=== PATIENT | female | born 1950 | race Caucasian/White ===

== ENCOUNTER 2016-11-08 20:17 | Inpatient (IN) | payer MEDICARE, MEDICAID ==
[~2016-11-08] VITALS: Ht 157.5 cm; Wt 95.4 kg
[2016-11-08] MEDS ORDERED: ESCI20TA PO (20:39)
[2016-11-08] MEDS ORDERED: ADV250INH INH (20:39)
[2016-11-08] MEDS ORDERED: COMBAER6 INH (20:39)
[2016-11-08] MEDS ORDERED: GABA-282 PO (20:47)
[2016-11-08] MEDS ORDERED: LEVO100T5 PO (20:47)
[2016-11-08] MEDS ORDERED: OXYC1TAB16 PO (20:47)
[2016-11-08] MEDS ORDERED: MONT10TA2 PO (20:47)
[2016-11-08] MEDS ORDERED: MUPI2OI TOP (20:47)
[2016-11-08] MEDS ORDERED: FURO20TA2 PO (20:47)
[2016-11-08] MEDS ORDERED: ZOFR4TAB3 PO (20:47)
[2016-11-08] MEDS ORDERED: ISOS30TA4 PO (20:47)
[2016-11-08] MEDS ORDERED: OMEP40CA2 PO (20:47)
[2016-11-08] MEDS ORDERED: CLAR10CA3 PO (20:47)
[2016-11-08] MEDS ORDERED: RANI15TA PO (20:47)
[2016-11-08] MEDS: NYSTATIN 100,000 UNITS/GM TOPICAL PWD 15 GM TOP SCH (21:00)
[2016-11-08] MEDS ORDERED: LORA10CA PO (21:42)
[2016-11-08] MEDS ORDERED: LORA10TA2 PO (21:43)
[2016-11-08] MEDS ORDERED: CLOB05OI TOP (21:46)
[2016-11-08] MEDS ORDERED: SPIR25TA2 PO (21:46)
[2016-11-08] MEDS ORDERED: VITMTA PO (21:46)
[2016-11-08] MEDS ORDERED: NYST10PW TOP (21:46)
[2016-11-08] MEDS ORDERED: POTA10CA PO (21:46)
[2016-11-08] MEDS ORDERED: ONDA4TAB5 PO (21:47)
[2016-11-09] VITALS (7 sets, daily range): BP systolic 101–107; BP diastolic 53–65
[2016-11-09] MEDS: GABAPENTIN 300 MG CAP PO SCH ×4 (01:18→21:30)
--- NOTE | 2016-11-09 04:24 | HPEPDOC ---
General Date of Admission Nov 08, 2016 at 23:47 Primary Care Physician: Angelo Butterfield Attending Physician: YOAN CANDELARIA MD Chief Complaint The patient is a 66-year-old female admitted with a reason for visit of Acute Renal Failure, Elevated Troponin. Source: Patient Exam Limitations: No limitations Timing/Duration: Day(s) (2) Severity: Moderate Associated Symptoms: Malaise, Weakness History of Present Illness 66-year-old female, history of hypertension, bilateral venous ulcers. Iron deficiency anemia presented with generalized weakness. She had some blood in the urine few days back and went to her PCP Dr. Durham for the workup and was found to have creatinine of 2.9 and UTI. Placenta was transferred to [facility] for nephrology consult and renal workup. Patient denied any fever, dysuria, history of renal stone Home Medications Scheduled Clobetasol Propionate (Clobetasol Propionate) 0.05 % Oin, 1 DOSE TOP DAILY, ( Reported) APPLY TO LEFT CALF Escitalopram Oxalate (Escitalopram Oxalate) 20 Mg Tab, 20 MG PO DAILY, (Reported ) Furosemide (Furosemide) 20 Mg Tab, 20 MG PO BID, (Reported) Gabapentin (Gabapentin) 300 Mg Cap, 300 MG PO QID, (Reported) Isosorbide Mononitrate (Isosorbide Mononitrate ER) 30 Mg Tab, 30 MG PO DAILY, ( Reported) Levothyroxine Sodium (Synthroid) 100 Mcg Tab, 100 MCG PO DAILY, (Reported) Loratadine (Loratadine) 10 Mg Tab, 10 MG PO DAILY, (Reported) Montelukast Sodium (Montelukast Sodium) 10 Mg Tab, 10 MG PO DAILY, (Reported) Multivitamins *[facility]* (Thera M Plus *[facility]*) 1 Tab Tab, 1 TAB PO DAILY, (Reported) Mupirocin (Mupirocin) 2 % Oin, 1 DOSE TOP DAILY, (Reported) APPLY TO LEFT CALF Nystatin (Nystop Powder) 1 Dose/15 Gm Powd, 1 DOSE TOP TID, (Reported) Omeprazole (Omeprazole) 40 Mg Cap, 40 MG PO DAILY, (Reported) Potassium Chloride (Klor-Con M10) 10 Meq Tabcr, 10 MEQ PO DAILY, (Reported) Salmeterol/Fluticasone (Advair Diskus 250-50 Mcg/Dose) 14 Puff/Inhaler Aerp, 1 PUFF INH BID, (Reported) Spironolactone (Spironolactone) 25 Mg Tab, 25 MG PO DAILY, (Reported) Scheduled PRN (Oxycodone/Acetaminophen 10-325 mg) 1 Tab Tab, 1 TAB PO Q6HP PRN for PAIN SCALE 6-10, (Reported) Ondansetron HCl (Ondansetron HCl) 4 Mg Tab, 4 MG PO BID PRN for NAUSEA, ( Reported) Allergies Coded Allergies: Contrast Media (Verified Allergy, Unknown, 11/08/16) Penicillins (Verified Allergy, Unknown, 11/08/16) Penicillins Cross Reactors (Verified Allergy, Unknown, 11/08/16) Past Medical History Medical History Hypertensive depressant. Hyperlipidemia Surgical History Development of venous ulcers on both legs Family History Significant Family History: No pertinent family hx Social History * Smoker: Denies Alcohol: Denies Drugs: denies Recent Travel/Sick Contacts: Denies: Recent travel, Recent sick contacts Psychosocial History: Depression Review of Symptoms Constitutional: Reports: Malaise, Weakness, Denies: Chills, Fever, Night Sweats Eyes: Denies: Pain, Vision change ENT: Denies: Head Aches, Ear Pain, Dysphagia Skin: Reports: Rash, Lesions, Breakdown Pulmonary: Denies: Dyspnea, Cough Cardiovascular: Denies: Chest Pain, Palpitations, Orthopnea, Paroxysmal Noc. Dyspnea, Lt Headedness Gastrointestinal: Reports: Abdominal Pain, Denies: Nausea, Vomiting, Diarrhea Genitourinary: Reports: Hematuria, Denies: Dysuria, Frequency, Incontinence, Retention Hematologic: Denies: Bruising, Bleeding Excessively Musculoskeletal: Denies: Neck Pain, Back Pain, Joint Pain, Muscle Pain, Spasms Neurological: Denies: Weakness, Numbness, Change in speech, Confusion Psych: Reports: Mood Normal, Denies: Depression, Memory Issues Physical Examination General Exam: Positive: Alert, No Acute Distress Eye Exam: Positive: PERRLA, Conjunctiva & lids normal, EOMI, Negative: Sclera icteric ENT Exam: Positive: Atraumatic, Mucous membr. moist/pink, Pharynx Normal Neck Exam: Positive: Supple, Negative: JVD, thyromegaly Chest Exam: Positive: Clear to auscultation, Normal air movement Heart Exam: Positive: Rate Normal, Regular Rhythm, Normal S1, Normal S2, Negative: Murmurs, Rubs Telemetry: Positive: No significant arrhythmia Abdomen Exam: Positive: Normal bowel sounds, Soft, Tenderness, Negative: Hepatospenomegaly Extremity Exam: Positive: Normal pulses, Tenderness, Swelling, Other (venous ulcers on both lower extremities), Negative: Clubbing, Cyanosis Skin Exam: Positive: Breakdown, Lesion Neuro Exam: Positive: Normal Speech, Cranial Nerves 3-12 NL, Reflexes 2+ Psych Exam: Positive: Mental status NL, Mood NL, Oriented x 3 Vital Signs Vital Signs Date Time Temp Pulse Resp B/P (MAP) Pulse Ox O2 Delivery O2 Flow Rate FiO2 11/09/16 01:03 98.4 76 18 101/53 (69) 92 Room Air Assessment/Plan 66-year-old female, history of iron deficiency anemia, hypertensive presented with urinary tract infection and acute kidney injury Problems (1) Acute renal failure Status: Acute Problem Text: Creatinine 2.9. Follow-up creatinine. DC Lasix Get renal ultrasound may get nephrology consult in the morning. By the day team if her creatinine does not improve remarkably. Get Bartholomew catheter. Check input and output. Check urine culture (2) Elevated troponin Status: Acute Problem Text: Troponin mildly elevated likely due to the high creatinine day. No chest pain, shortness of breath or palpitations, and ischemia highly unlikely . Check troponin and professional nursing assistant (3) UTI (urinary tract infection) Problem Text: Leukocytosis in urine and started IV Cipro Plan / VTE VTE Prophylaxis Ordered?: Yes Plan / Urinary Catheter Urinary Catheter: Place Bartholomew Reason for insertion/continuin: Acute obstruct/retention Plan Diet: Continue Current Activity: Continue Current Diagnostics: Repeat Labs in AM Anticipated Discharge: Home LAMBERTO HALEY MD Nov 09, 2016 04:24
[2016-11-09] MEDS: LEVOTHYROXINE 100MCG TABLET (0.1MG) PO SCH (05:39)
[2016-11-09] MEDS ORDERED: CIPROFLOXACIN 500 MG TAB PO SCH (06:00)
[2016-11-09] MEDS ORDERED: HEPARIN DRIP 25,000 UNITS in APPROPRIATE DILUENT 1 EA IV SCH (06:43)
[2016-11-09] MEDS ORDERED: CLOPIDOGREL 75 MG TAB PO STA (06:45)
[2016-11-09] MEDS ORDERED: ASPIRIN 325 MG TAB PO ONE (06:45)
[2016-11-09] MEDS ORDERED: HEPARIN SOD (PORCINE) 5000 UNITS/ML VIAL IV PRN (06:45)
[2016-11-09 07:25] LABS: ALBUMIN 2.3 GM/DL (3.2-5.2); ALBUMIN/GLOBULIN RATIO 0.49 (1.00-1.93); BILIRUBIN,TOTAL 0.6 MG/DL (0.2-1.0); CALCIUM LEVEL 8.5 MG/DL (8.8-10.2); CREATININE FOR GFR 2.6 MG/DL (0.55-1.02); GLOMERULAR FILTRATION RATE 19.5 (>45); POTASSIUM SERUM 4.3 MEQ/L (3.5-5.1)
[2016-11-09] MEDS: ADVAIR DISKUS 250/50 INH PWD INH SCH ×2 (07:39→20:10)
[2016-11-09 07:56] LABS: MAGNESIUM LEVEL 1.9 MG/DL (1.8-2.4)
[2016-11-09 08:08] LABS: ADD MANUAL DIFFER YES; MEAN CORPUSCULAR HEMOGLOBIN 32.5 pg (27.0-33.0); MEAN CORPUSCULAR HGB CONC 31.5 g/dl (32.0-36.5); MEAN CORPUSCULAR VOLUME 103.4 fl (80.0-96.0); PLATELET COUNT, AUTOMATED 164 k/mm3 (150-450); RED CELL DISTRIBUTION WIDTH 17.3 % (11.5-14.5); WHITE BLOOD COUNT 4.9 K/mm3 (4.0-10.0)
[2016-11-09] MEDS ORDERED: NS 1,000 ML IV SCH (08:30)
[2016-11-09] MEDS: ISOSORBIDE MON. (IMDUR) 30 MG XR TAB PO SCH (08:59)
[2016-11-09] MEDS: MONTELUKAST 10 MG TAB PO SCH (08:59)
[2016-11-09] MEDS ORDERED: MULTIVITAMINS/MINERALS THERAP 1 TAB PO SCH (09:00)
[2016-11-09] MEDS: ESCITALOPRAM OXALATE 10 MG TAB (LEXAPRO) PO SCH (09:00)
[2016-11-09] MEDS: OMEPRAZOLE 20 MG CAP PO SCH (09:00)
[2016-11-09] MEDS ORDERED: SPIRONOLACTONE 25 MG TAB PO SCH (09:00)
[2016-11-09] MEDS ORDERED: NITROFURANTOIN (MACROBID) 100 MG CAP PO SCH (09:00)
[2016-11-09] MEDS: NYSTATIN 100,000 UNITS/GM TOPICAL PWD 15 GM TOP SCH ×3 (09:01→21:31)
[2016-11-09] MEDS: CLOBETASOL PROP 0.05% OINT 30 GM TOP SCH (09:01)
[2016-11-09] MEDS: MUPIROCIN 2% OINT 22 GM TUBE TOP SCH (09:01)
[2016-11-09 09:11] LABS: ANISOCYTOSIS 1+; EOSINOPHILS 7 % (0-5); HYPOCHROMASIA 1+
[2016-11-09 10:56] LABS: OSMOLALITY URINE 374 MOSM/KG (500-800)
--- NOTE | 2016-11-09 11:08 | REP ---
BILATERAL RENAL ULTRASOUND: 11/09/2016 CLINICAL HISTORY: Elevated creatinine. COMPARISON: CT 05/02/2014 FINDINGS: Technologist indicates technical challenges to the exam due to extreme body habitus and inability to perform decubitus examination. Imaging shows the atrophic right kidney is noted at 8.7 x 3.3 x 4.2 cm. This is similar to its size on the CT in 2013. Cortical thickness is decreased. The echogenicity is less than that of the liver which is normal. 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 No hydronephrosis, hydroureter, renal stone, mass or visible cyst. The left kidney measures 9.7 x 3.3 x 3.9 cm. There is slight thinning of the cortex which has normal echogenicity sinus lipomatosis is noted. There is no hydronephrosis or hydroureter. No definite renal stone, cyst or mass. As an incidental finding, there were some calcified gallstones in the neck of the gallbladder. A Bartholomew catheter is seen within the bladder and cannot be evaluated. IMPRESSION: 1. Bilateral renal atrophy, right greater than left with cortical echogenicity preserved. No hydronephrosis, hydroureter, renal solid mass, cyst or stone evident. Somewhat limited examination. 2. Bladder cannot be evaluated with a Bartholomew catheter in place. 3. Incidental note of gallstones in the neck of the gallbladder. Signed by Seth Quintana MD 11/09/2016 07:56 P
[2016-11-09] MEDS ORDERED: PERCOCET 5MG/325MG TAB PO ONE (12:20)
[2016-11-09] MEDS: ATORVASTATIN 20 MG TAB PO SCH (12:20)
--- NOTE | 2016-11-09 12:53 | CR ---
DATE OF CONSULTATION: 11/09/2016 REFERRING PROVIDER: Dr. Jennifer Fink REASON FOR CONSULTATION: Abnormal serum troponin. HISTORY OF PRESENT ILLNESS: 66-year-old woman was transferred from [facility] yesterday 11/08/2016 because of the need for a nephrology evaluation. At this time, she was found at the hospital to have an abnormal serum. The patient initially went to the hospital because she was found to have blood in the urine and was complaining of abdominal pain and back pain in the setting of treatment for urinary tract infection. She denies any chest pain, shortness of breath or palpitations. Initial labs at [facility] revealed a BUN and creatinine of 29 and 2.9 respectively with a CPK of 361, serum troponin of 0.25. CK MB of 5.3, serum for BNP of 1562. When I saw Mrs. Milagro Watts this morning, she was laying supine in bed in no acute distress. She just came up from an ultrasound of the kidneys. She denies any chest pain. There is no orthopnea or paroxysmal nocturnal dyspnea. She denies any palpitations. There is no report of active bleeding. She was given aspirin earlier today and loaded with a 300 mg dose of Plavix. Cardiology consult was called because of serum troponin increased up to 1.22 from 0.25. She denies any cough and there is no report of hemoptysis. There is no report nausea, vomiting, diarrhea, melena or hematemesis. When I was at bedside, the patient was moving all of her upper extremities. According to her chart from [facility], it seems that she has a past medical history positive for hypertension, hyperlipidemia, pulmonary embolism, coronary artery disease, congestive heart failure, COPD, hypothyroidism, chronic venostasis and bilateral leg ulcers, gastroesophageal reflux disease, vertigo, gallstones, peptic ulcer disease, deep venous thrombosis. Past surgical history is positive for surgery done on her legs, but the patient could not elaborate. Medications prior to coming to the hospital: - Advair Diskus 250/50 one puff twice a day - Combivent 20/100 mcg one puff every 6 hours as needed - escitalopram 20 mg daily - Lasix/furosemide 20 mg by mouth twice a day - gabapentin 300 mg by mouth four times a day - isosorbide mononitrate 30 mg by mouth daily - levothyroxine 100 mcg by mouth daily - loratadine 10 mg by mouth daily - Singular 10 mg by mouth daily - multivitamin one tablet by mouth daily - clobetasol - omeprazole 40 mg by mouth daily - oxycodone 10/225 one tablet by mouth every 6 hours - ranitidine 150 mg by mouth twice a day - Zofran 4 mg twice a day as needed - multivitamin one tablet by mouth daily Current medications are: - clobetasol propionate one dose daily applied daily - escitalopram 20 mg by mouth daily - isosorbide mononitrate 30 by mouth daily - Singular 10 mg by mouth daily - mupirocin one dose applied daily - omeprazole 40 mg by mouth daily - atorvastatin 40 mg by mouth daily - normal saline at 60 mL/hour - levothyroxine 100 mcg by mouth daily - gabapentin 300 mg by mouth four times a day - nystatin powder applied as directed three times a day - Advair Diskus 250/50 one puff twice a day Today, the patient had received aspirin 325 mg by mouth and Plavix 300 mg by mouth. FAMILY HISTORY: Noncontributory. SOCIAL HISTORY: There is no report of smoker or EtOH abuse or illicit drugs. The patient is from an assisted living facility. On physical examination, the patient is alert and oriented, in no acute distress. Her last vital signs this morning revealed a blood pressure 117/68 with a pulse of 66, respiration 18 and her temperature is 97.6 degree Fahrenheit with an oxygen saturation of 93-97% on room air. Examination of the head is normocephalic, atraumatic. Neck is supple. I could elicit any jugular venous distention (JVD) or carotid bruits. Lungs are without any wheezing or crackles. The heart examination revealed normal S1, S2 without gallops. The point of maximum impulse (PMI) is slightly displaced inferiorly. There is no rub. No murmurs appreciated. Abdomen is soft, nontender. Bowel sounds present. Extremities revealed no pedal edema. Neurological examination revealed no focal deficit. LABS: BMP done today revealed a sodium of 137, potassium 4.3, chloride 108, CO2 19, BUN 29, creatinine 2.6, GFR 19.5, glucose 136, calcium 8.5, magnesium 1.9. Liver enzymes revealed a total BUN 0.6, AST 41, ALT 20, alkaline phosphatase is 240. Total protein 7.0, albumin 2.3. One set of cardiac enzymes here in the hospital revealed a CPK of 21.9, CK MB 3.3 relative index 1.57 and serum troponin 1.25. CBC revealed a WBC of 4.9, hemoglobin 10.6, hematocrit 33.7 and platelet 164, 000. PTT 45.6. Urinalysis revealed +1 glucose and trace ketones. WBC as well as RBCs were noted. EKG done prior to coming to the hospital revealed normal sinus rhythm with isolated PACs, non-isolated PACs, nonspecific ST/T abnormalities and poor R wave progression. Telemetry was reviewed and revealed normal sinus rhythm. IMPRESSION: 1. Abnormal serum troponin in this 66-year-old old woman with a history of coronary artery disease according to her chart and risk factors of coronary artery disease. The patient is asymptomatic without any chest pain. Serum for BNP was also elevated. Medications were reviewed and I will continue with the nitrate for now as well as the aspirin and the Plavix if there is no contraindications, if there is no active bleeding. Her anemia is probably chronic and related to underlying renal function. If her blood pressure remains stable, she will be started on a small dose of short-acting beta jing with metoprolol tartrate. She is on a statin and I will continue the same. Will stay away from KYLEIGH inhibitor in/or before mild injury of her underlying kidney function. I will have an echocardiogram to assess her left ventricular systolic function. The further recommendations will be given. She will be managed conservatively. 2. Acute kidney injury. She is being evaluated by nephrology. 3. Hypertension under control. Her blood pressure was reviewed and seem that yesterday it was low, and she will be monitored for now. As mentioned above, in assessment #1, if her blood pressure remains stable, she will be started on a small dose of short-acting. 4. Hyperlipidemia, on a statin. 5. History of diabetes mellitus by history. 6. Anemia. 7. History of deep venous thrombosis and pulmonary embolism according to her chart. 8. Ulcers bilaterally in the lower legs. 9. Status post recent urinary tract infection. It was a pleasure to participate in the care of Mrs Milagro Watts for her underlying cardiac condition. I will continue to monitor along with you while she is in the hospital and upon discharge, she can be followed up by her primary in [place]. The case was discussed earlier today with the hospitalist. Please do not hesitate to call for any questions. CARMELITA
[2016-11-09] MEDS ORDERED: BICITRA 30ML SOLN UDC PO ONE (13:00)
--- NOTE | 2016-11-09 13:45 | REP ---
SUPINE ABDOMEN: 11/09/2016 COMPARISON: 11/08/2016 at [facility]. CLINICAL HISTORY: Constipation. FINDINGS: Two transverse views were provided. Images show right inguinal herniorrhaphy wire sutures. Gas-filled stomach bubble with scattered stool and gas in the colon and gas in small bowel loops without abnormal dilatation, slightly more gas than yesterday's study, overall. Injection granulomas over both flanks noted. No gross mass. There are degenerative changes in the spine and hips. I do not see evidence for constipation. Not much change from yesterday. Signed by Seth Quintana MD 11/09/2016 07:58 P
--- NOTE | 2016-11-09 14:59 | IPNPDOC ---
Text Note Date of Service The patient was seen on 11/09/16. NOTE Subjective: Patient is a 66 year old female with a PMHx of CAD (no Hx of stents), HTN, DLP, Hx of PE, CHF (EF unknown), Hypothyroidism, COPD, Venous stasis ulcer bilaterally, Hx of Gallstones and PUD / GERD who was transferred from [facility] because of worsening renal function and elevated troponin. Patient was noted to have a UTI as an outpatient and received treatment with Ciprofloxacin as an outpatient. She failed to improve and presented to [facility] ER for evaluation. She was found to have AUDREY (Cr 2.9 / BUN 29) and a minor elevation in troponin (0.25) at that time. She denied any chest pain, SOB, palpitations, N&V or diaphoresis. Upon transferred to [facility] ER for further evaluation. Patient was seen and examined at the bedside. Currently she denies any chest pain, SOB, palpitations, N&V, diaphoresis. She denies abdominal pain, constipation, diarrhea or any urinary difficulty. She also denies any change in her stool, denies change in color or obvious blood. Objective: Vitals (See below) General: Lying in bed, no acute distress, comfortable, AAOx3 HEENT: NC, AT CVS: RRR, +S1S2 Lungs: Fair air entry b/l, -w/r/r Abdomen: Soft, ND, NT, +BSx4 Extremities: +PPx4, - Edema, - Calf tenderness Skin: Bilateral venous stasis ulcers Assessment and plan: 1. Acute kidney injury - possibly 2/2 pre-renal etiology, possibly 2/2 renal etiology, less likely 2/2 post-renal etiology - Presented from [facility] because of worsening renal function - Physical does not reveal any signs of fluid overload at this time - Cr from [facility] was noted to be 2.9, currently creatinine is at 2.6 - Labs reveal non-anion gap metabolic acidosis, no electrolyte abnormalities - Renal US: No evidence of hydronephrosis - c/w IV fluid hydration - Nephrology (Dr. Banks) has been consulted; appreciate their input 2. Elevated troponin with history of CAD - Elevation from 0.25 to 1.22 - Denies any chest pain, or symptoms - EKG done this morning reveals T wave inversions in AvL and V2-3, similar to EKG done at [facility] - Has been started on Plavix, ASA and Atorvastatin - c/w Isosorbide mononitrate - ECHO pending - Cardiology consulted (Dr. Branch); appreciate their input 3. Metabolic acidosis, non-anion gap - Nephrology has started the patient on alkalinization with Sodium Citrate 4. Macrocytic anemia - No evidence of bleeding - Will check B12, Folate and Reticulocyte count - Will continue to follow Hg 5. Recent Hx of UTI - No symptoms at this time - UA currently shows no overt signs of infection - Urine cultures from [facility] reveal resistant organism (Sensitive to Ertapenem and Imipenem) - Urine culture ordered 6. HTN - BP on lower limits of normal - Not currently on any medications 7. DLP - c/w Atorvastatin 8. Hx of PE 9. Venous stasis ulcers bilaterally 10. Hypothyroidism - c/w Levothyroxine 11. COPD - c/w Advair, Singulair - Will add Duoneb PRN 12. Peripheral neuropathy - c/w Gabapentin Hx of Gallstones - Renal US: reveals incidental stone in gallbladder neck Depression - c/w Escitalopram Chronic back pain - s/p Percocet 1 tab PO - c/w Tylenol PRN PUD / GERD - c/w omeprazole DVT prophylaxis - c/w SCDs VS,Fishbone, I+O VS, Fishbone, I+O Laboratory Tests 11/09/16 05:25 Red Blood Count 3.26 L, Mean Corpuscular Volume 103.4 H, Mean Corpuscular Hemoglobin 32.5, Mean Corpuscular Hemoglobin Concent 31.5 L, Red Cell Distribution Width 17.3 H, Calcium Level 8.5 L, Aspartate Amino Transf (AST/SGOT ) 41 H, Alanine Aminotransferase (ALT/SGPT) 20, Total Creatine Kinase 209 H, Alkaline Phosphatase 240 H, Total Bilirubin 0.6, Total Protein 7.0, Albumin 2.3 L Vital Signs Date Time Temp Pulse Resp B/P (MAP) Pulse Ox O2 Delivery O2 Flow Rate FiO2 11/09/16 12:20 18 11/09/16 12:00 97.5 69 103/55 (71) 98 Room Air YOAN CANDELARIA MD Nov 09, 2016 14:59
[2016-11-09] MEDS ORDERED: IPRATROPIUM 0.5MG/ALBUTEROL 2.5MG INH SOL UD 3ML (DUONEB)(J7620) NEB PRN (15:00)
[2016-11-09 15:29] LABS: RETIC HEMOGLOBIN CONTENT CHr 35.4 PG (24-36); RETICULOCYTE % 1.8 % (0.5-1.5)
[2016-11-09] MEDS: HEPARIN SOD (PORCINE) 5000 UNITS/ML VIAL IV ONE ×2 (16:19→16:59)
[2016-11-09] MEDS ORDERED: MIRALAX *UNIT DOSE* 17GM PACKET PO ONE ×2 (19:45→21:30)
[2016-11-09] MEDS: DOCUSATE SODIUM 100 MG CAP PO SCH (21:30)
[2016-11-09] MEDS: BICITRA 30ML SOLN UDC PO SCH (21:30)
--- NOTE | 2016-11-09 22:58 | CR ---
DATE OF CONSULTATION: 11/09/2016 REQUESTING PHYSICIAN: Dr. Jennifer Fink CONSULTING PHYSICIAN: Dr. Banks REASON FOR CONSULTATION: Management of acute kidney injury. CHIEF COMPLAINT: Patient was transferred to [facility] overnight for management of acute renal failure. HISTORY OF PRESENT ILLNESS: Milagro Watts is a 66-year-old female with unknown past renal history. As of records available from 2013, she had a normal renal function. She was initially admitted to [facility] with pain in lower abdomen and hematuria along with acute renal failure with a creatinine of 2.9 and a creatine phosphokinase (CPK) of 361. Patient was also found to have signs of urinary tract infection. She was started on antibiotics, and patient was transferred overnight to [facility] for further management of acute renal failure. Of note, patient was also found to have a troponin elevation, so she is pending evaluation from cardiology as well. Nephrology service was called for further help in the management of acute renal failure. Her creatinine on arrival was 2.6 over here, according to our labs. Patient is not oliguric at this time. Her urine output since overnight is 375 mL. When I saw this patient in the morning at the bedside, she is awake, alert, oriented times three. She is not in any distress at this time. Patient has a Bartholomew catheter at this time. Urine in the Bartholomew at this time is stable. Patient is not in any distress, and she is hemodynamically stable. PAST MEDICAL HISTORY: 1. Hypertension. 2. Hyperlipidemia. 3. Coronary artery disease. 4. History of pulmonary embolism in the past. 5. Congestive heart failure. 6. Chronic obstructive pulmonary disease (COPD). 7. Hypothyroidism. 8. Chronic venous stasis changes with bilateral lower extremity ulcers. 9. Gastroesophageal reflux disease. 10. Vertigo. 11. Peptic ulcer disease. 12. History of deep vein thrombosis (DVT) as well. PAST SURGICAL HISTORY: Patient is unable to provide any reliable past surgical history; however, as per documentation, patient had some sort of surgery on the bilateral lower extremities in the past. ALLERGIES: Patient is allergic to intravenous (IV) contrast media, PENICILLINS. FAMILY HISTORY: No significant family history of end-stage renal disease requiring hemodialysis. SOCIAL HISTORY: Patient is a resident of retirement. She denies any smoking, drug abuse, or alcohol abuse. MEDICATIONS: On transfer to our facility, patient was on: - escitalopram 20 mg daily - Lasix 20 mg twice a day - gabapentin 300 mg four times a day - isosorbide 30 mg daily - levothyroxine 100 mcg daily - loratadine 10 mg daily - montelukast 10 mg daily - multivitamin daily - nystatin topical - omeprazole 40 mg daily - Zofran 4 mg twice a day - Percocet as needed - potassium chloride 10 mEq daily - Advair 250/50 one puff twice a day - spironolactone 25 mg by mouth daily CURRENT INPATIENT MEDICATIONS: Patient's current inpatient medications were all reviewed by me. She is on: - Lasix 60 mL an hour - Tylenol as needed - aspirin 325 mg by mouth one dose - Lipitor 40 mg daily - I have started the patient on Bicitra 15 mL by mouth twice a day - Plavix 300 mg by mouth stat was given. - She is on Lexapro 2 mg daily. - gabapentin 300 mg by mouth four times a day. I am going to increase the dose to 300 mg by mouth twice a day because of acute renal failure. - heparin subcutaneous - isosorbide 30 mg by mouth daily - levothyroxine 100 mcg daily - montelukast 10 mg daily - nystatin topical powder - omeprazole 40 mg daily - Percocet as needed - Advair twice a day - spironolactone was stopped this morning. REVIEW OF SYSTEMS: CONSTITUTIONAL: Patient denies any fevers, chills, or rigors. EYES: She denies any blurry vision or double vision. ENT: She denies any dysphagia, odynophagia, or ear discharge. CARDIOVASCULAR: She denies any chest pain or palpitations. RESPIRATORY: She denies any shortness of breath or cough. GASTROINTESTINAL: She denies any constipation or diarrhea. GENITOURINARY: Patient reported recent hematuria. Currently she has a Bartholomew. MUSCULOSKELETAL: Patient reports lower extremity edema and ulcerations. CENTRAL NERVOUS SYSTEM: She denies any strokes or seizures. PSYCHIATRIC: She denies any depression at this time, but she has history of depression and currently on antidepressants. SKIN: Patient reports rashes and ulcerations on the lower extremities. HEMATOLOGICAL/ONCOLOGICAL: She denies any history of anemia or easy bruising. All other review of systems is negative. OBJECTIVE: Vital signs: Temperature is 97.5 degrees Fahrenheit, blood pressure is 103/55, pulse is 69, respiratory rate of 18, saturating 98% on room air. Intake and output: Urine output recorded is 375 mL so far today. Weight in the bed scale is 78.1 kg. HEAD AND NECK: Extraocular muscles intact. Pupils equally round and reactive to light. Mucous membranes are moist. Neck is supple. Patient has a hearing aid attached to the left temporal region. CARDIOVASCULAR: S1, S2, regular rate. No murmur, rub, or gallop. RESPIRATORY: Chest is clear to auscultation bilaterally. Bilateral equal air entry. No rales or rhonchi. ABDOMEN: Abdomen is tense, nontender. No ascites. No significant organomegaly was appreciated, but abdomen is hard. GENITOURINARY: Patient has an indwelling Bartholomew catheter. Urine in the bag is clear. EXTREMITIES: Patient has chronic venous stasis changes of bilateral lower extremities, and she has dressings on the bilateral lower extremities on the ulcerations. CENTRAL NERVOUS SYSTEM: No focal neurological deficit. Power is 5/5 in bilateral upper extremities. PSYCHIATRIC: Normal mood and affect. LYMPH NODES: No significant cervical, axillary, or inguinal lymphadenopathy. LABORATORY REVIEW: CBC showed a WBC 4.9, hemoglobin 10.6, platelets are 164. Urinalysis showed 1+ glucose. Negative nitrite. Negative leukocyte esterase. Urine random osmolality was 374. BMP today morning showed sodium 137, potassium 4.3, chloride 108, bicarbonate 19, BUN 29, creatinine is 2.6. GFR 19.5, calcium 8.5, magnesium 1.9, albumin 2.3. Troponin came down from 1.2 to 1.01. Microbiology: Urine culture is pending. IMAGING: A renal ultrasound done today morning showed bilateral renal atrophy, right greater than left with preserved cortical echogenicity. No hydronephrosis, cyst, mass, or stones were seen. X-ray KUB done today morning showed right inguinal herniorrhaphy wire sutures. Gastric stomach bubble with scattered stool and gas in the colon and gas in the small bowel loops without abnormal dilatation. No gross mass was seen. There were degenerative changes in the spine. ASSESSMENT: A 66-year-old female with unknown past renal history, admitted at this time with acute kidney injury and elevated troponins. PLAN: 1. Acute kidney injury. Baseline renal function is unknown; however, her creatinine was 2.9 at [facility]. It is 2.6 today. I agree with gentle intravenous (IV) fluid hydration. I am going to hold the spironolactone as well. Continue to monitor the intake and output and daily weight. Avoiding nephrotoxic medications at this time. 2. Metabolic acidosis. It is secondary to acute renal failure. Bicarbonate is 19. I have started the patient on Bicitra 15 mL by mouth twice a day. 3. Elevated troponins. Patient was already given aspirin and Plavix loading dosages. She was on heparin protocol infusion, which has been stopped today morning. Rest of the management is as per cardiology service. Troponin is trending down. 4. Hypertension. Blood pressure is acceptable at this time. Continue current dose of isosorbide 30 mg by mouth daily. 5. Urinary tract infection. As per records from the [facility], patient had a resistant urinary tract infection (UTI). Her culture over here is pending. She has negative leukocyte esterase and nitrate. Antibiotics are on hold at this time. 6. COPD. Continue Singulair, Advair, and nebulizations as per primary team. Thank you for involving us in the care of this patient. We shall be happy to follow the patient along with you tomorrow morning.
[2016-11-10 03:33] VITALS: BP 93/51
[2016-11-10] MEDS ORDERED: SLF 3 ML SYR IV PRN (03:45)
[2016-11-10 05:49] LABS: MEAN CORPUSCULAR HEMOGLOBIN 32.2 pg (27.0-33.0); MEAN CORPUSCULAR VOLUME 100.6 fl (80.0-96.0); RED CELL DISTRIBUTION WIDTH 17.8 % (11.5-14.5); WHITE BLOOD COUNT 3.6 K/mm3 (4.0-10.0)
[2016-11-10] MEDS: LEVOTHYROXINE 100MCG TABLET (0.1MG) PO SCH (06:00)
[2016-11-10] MEDS: SLF 3 ML SYR IV SCH ×3 (06:00→20:58)
[2016-11-10 06:08] LABS: ALBUMIN 2.2 GM/DL (3.2-5.2); ALBUMIN/GLOBULIN RATIO 0.52 (1.00-1.93); BILIRUBIN,TOTAL 0.6 MG/DL (0.2-1.0); CALCIUM LEVEL 8.4 MG/DL (8.8-10.2); CREATININE FOR GFR 2.64 MG/DL (0.55-1.02); GLOMERULAR FILTRATION RATE 19.2 (>45); POTASSIUM SERUM 3.9 MEQ/L (3.5-5.1); TOTAL PROTEIN 6.4 GM/DL (6.4-8.2)
[2016-11-10] MEDS: ADVAIR DISKUS 250/50 INH PWD INH SCH ×2 (07:35→20:13)
[2016-11-10 07:40] VITALS: BP 106/56
[2016-11-10] MEDS: GABAPENTIN 300 MG CAP PO SCH ×2 (09:21→20:54)
[2016-11-10] MEDS: ISOSORBIDE MON. (IMDUR) 30 MG XR TAB PO SCH (09:21)
[2016-11-10] MEDS: OMEPRAZOLE 20 MG CAP PO SCH (09:21)
[2016-11-10] MEDS: DOCUSATE SODIUM 100 MG CAP PO SCH ×2 (09:21→20:50)
[2016-11-10] MEDS: ESCITALOPRAM OXALATE 10 MG TAB (LEXAPRO) PO SCH (09:21)
[2016-11-10] MEDS: ATORVASTATIN 20 MG TAB PO SCH (09:21)
[2016-11-10] MEDS: CLOBETASOL PROP 0.05% OINT 30 GM TOP SCH (09:22)
[2016-11-10] MEDS: MONTELUKAST 10 MG TAB PO SCH (09:22)
[2016-11-10] MEDS: BICITRA 30ML SOLN UDC PO SCH ×2 (09:22→20:50)
[2016-11-10] MEDS: NYSTATIN 100,000 UNITS/GM TOPICAL PWD 15 GM TOP SCH ×3 (09:23→20:54)
[2016-11-10] MEDS: MUPIROCIN 2% OINT 22 GM TUBE TOP SCH (09:23)
[2016-11-10] MEDS ORDERED: FUROSEMIDE 40 MG/4 ML VIAL (J1940) IV ONE (09:30)
--- NOTE | 2016-11-10 11:14 | ECHO ---
DATE OF SERVICE: 11/09/2016 AGE: 66 REFERRING PROVIDER: Jennifer Fink MD PATIENT LOCATION: Room 3216 REASON FOR THE ECHOCARDIOGRAM: Abnormal electrocardiogram (EKG). 2D MEASUREMENTS: IVS: 0.9 cm LV: 4.5 cm LVPW: 0.9 cm LA: 3.5 cm Aorta: 2.5 cm DOPPLER MEASUREMENTS: Peak velocity across the aortic valve: 1.7 m/s Peak velocity across the LVOT: 1.3 m/s Peak gradient across the aortic valve: 12 mmHg Mitral E: 0.92 Mitral A: 0.81 with a ratio of 1.1 Maximum tricuspid valve velocity: 3.3 m/s 2D COMMENTS: 1. Normal left ventricular size, wall thickness, and normal global left ventricular systolic function. The estimated global left ventricular systolic ejection fraction is 55% to 60%. 2. Normal left atrium. The right atrium and the right ventricle appear to be enlarged in limited views. The right ventricular free wall also appeared to be hypokinetic. 3. The atrial septum appeared to be normal without evidence of defect or shunt. A flattening of the ventricular septum was noted to be present in both systole and diastole. 4. Normal aortic root. 5. No pericardial effusion seen. 6. Mildly calcified aortic valve. Leaflet excursion appeared to be normal. Mildly calcified mitral annulus with normal anterior mitral valve leaflet motion. Normal tricuspid valve. The pulmonic valve and the proximal pulmonary artery branches were not well visualized. 7. The inferior vena cava was not visualized. DOPPLER: It detects moderate tricuspid regurgitation. IMPRESSION: 1. Technically limited study due to poor acoustic window secondary to body habitus. 2. Normal global left ventricular systolic function. Left ventricular diastolic function also appeared to be normal. 3. Aortic valve sclerosis with trivial aortic stenosis but no evidence of aortic regurgitation. 4. Mitral annulus calcification without evidence of mitral stenosis or mitral regurgitation. 5. Moderate tricuspid regurgitation with probably severe pulmonary hypertension. The right side of the heart was dilated, and there was a flattening of the ventricular septum that is usually seen in the setting of severe pulmonary hypertension. MTDD
[2016-11-10] MEDS: ASPIRIN 81 MG ENTERIC TAB PO SCH (12:24)
[2016-11-10] MEDS: METOPROLOL TART 12.5 MG PER 1/2 TAB PO SCH ×2 (12:28→20:51)
[2016-11-10 12:34] VITALS: BP 98/68
--- NOTE | 2016-11-10 12:35 | IPN ---
DATE: 11/10/2016 Mrs. Milagro Watts was seen earlier this morning, she was laying supine in the bed in no acute distress. She denies any complaint of chest pain or shortness of breath or palpitations. She has no dizziness. There is no report of bleeding. She was seen yesterday because of abnormal serum troponin but no chest pain. She was transferred from [facility] because of acute on chronic kidney injury. On physical examination, the patient is alert and oriented, in no acute distress. Vital signs this morning reveal a blood pressure of 111/68 with a pulse of 77, respiration 18 and her temperature was 98.1 degrees Fahrenheit with an oxygen saturation of 95% on room air. Examination of the head is normocephalic, atraumatic. Neck is supple and I could not elicit any jugular venous distention. The lungs did not reveal any wheezing or crackles. The heart examination revealed normal S1 and S2 without gallops. The point of maximum impulse (PMI) is not distressed. There is no rub. Abdomen is soft and nontender. Extremities reveal no focal manifestation in the upper extremities. LABS: CBC on 11/10/2016 revealed a WBC of 3.6, hemoglobin 9.6, hematocrit 30.1 and platelet 159,000. BMP revealed a sodium of 140, potassium 3.9, chloride 110, CO2 21, BUN 33, creatinine 2.64, GFR 19.2, fasting glucose 93 and calcium 8.4. Liver enzymes revealed a total bilirubin 0.6, AST 29, ALT 15, alkaline phosphatase 210, total protein 6.4, and albumin 2.1 Troponin today is 0.92 and yesterday peaked at 1.22. Mrs. Milagro Watts seems to be stable from a cardiac point of view and I would continue the same cardiac medications. I have added a baby aspirin and a tiny dose of a short-acting beta jing of metoprolol tartrate. She is on a statin. I would stay away from the Plavix for now in view of her hemoglobin and hematocrit. She does have a history of deep venous thrombosis and pulmonary embolism according to her chart, she would benefit from deep venous thrombosis prophylaxis and she will be started on heparin subcutaneously, but will discuss that first with her hospitalist. CARMELITA
--- NOTE | 2016-11-10 13:08 | IPNPDOC ---
Text Note Date of Service The patient was seen on 11/10/16. NOTE Subjective: Patient is a 66 year old female with a PMHx of CAD (no Hx of stents), HTN, DLP, Hx of PE, CHF (EF unknown), Hypothyroidism, COPD, Venous stasis ulcer bilaterally, Hx of Gallstones and PUD / GERD who was transferred from [facility] because of worsening renal function and elevated troponin. Patient was noted to have a UTI as an outpatient and received treatment with Ciprofloxacin as an outpatient. She failed to improve and presented to [facility] ER for evaluation. She was found to have AUDREY (Cr 2.9 / BUN 29) and a minor elevation in troponin (0.25) at that time. She denied any chest pain, SOB, palpitations, N&V or diaphoresis. Upon transferred to [facility] ER for further evaluation. Patient was seen and examined at the bedside. She reports that she does not have any complaints this morning. she notes that she has not had a bowel movement in 2 days. She denies again, chest pain, SOB, palpitations, N&V or sweating. Objective: Vitals (See below) General: Lying in bed, no acute distress, comfortable, AAOx3 HEENT: NC, AT CVS: RRR, +S1S2 Lungs: Fair air entry b/l, -w/r/r Abdomen: Soft, ND, NT, +BSx4 Extremities: +PPx4, - Edema, - Calf tenderness Skin: Bilateral venous stasis ulcers Assessment and plan: 1. Acute kidney injury - possibly 2/2 pre-renal etiology, possibly 2/2 renal etiology, less likely 2/2 post-renal etiology - Presented from [facility] because of worsening renal function - Physical does not reveal any signs of fluid overload at this time - Cr from [facility] was noted to be 2.9, Creatinine has not changed despite gentle hydration - s/p non-anion gap metabolic acidosis, no electrolyte abnormalities - Renal US: No evidence of hydronephrosis - s/p IV fluid hydration - s/p Spironolactone - Nephrology (Dr. Banks) has been consulted; appreciate their input 2. Elevated troponin with history of CAD - Elevation from 0.25 to 1.22; has begun to trend down - Denies any chest pain, or symptoms - EKG done this morning reveals T wave inversions in AvL and V2-3, similar to EKG done at [facility] - s/p Plavix - c/w ASA 81, Atorvastatin and low dose Metoprolol - c/w Isosorbide mononitrate - ECHO reveals normal LV systolic function and severe pulmonary HTN - Cardiology consulted (Dr. Branch); appreciate their input 3. s/p Metabolic acidosis, non-anion gap - c/w Sodium citrate 4. Macrocytic anemia - No evidence of bleeding - Reticulocyte index 0.86; hypoproliferative - B12 and Folate pending 5. Recent Hx of UTI - No symptoms at this time - No fever or leukocytosis noted - UA currently shows no overt signs of infection - Urine cultures from [facility] reveal resistant organism (Sensitive to Ertapenem and Imipenem) - Urine culture remains pending - Will continue to hold off on antibiotics 6. HTN - BP on lower limits of normal - Not currently on any medications 7. DLP - c/w Atorvastatin 8. Hx of PE 9. Venous stasis ulcers bilaterally 10. Hypothyroidism - c/w Levothyroxine 11. COPD - c/w Advair, Singulair and Duoneb PRN 12. Peripheral neuropathy - c/w Gabapentin 13. Hx of Gallstones - Renal US: reveals incidental stone in gallbladder neck 14. Depression - c/w Escitalopram 15. Chronic back pain - s/p Percocet 1 tab PO - c/w Tylenol PRN 16. PUD / GERD - c/w omeprazole 17. DVT prophylaxis - c/w SCDs - Will start Heparin SQ VS,Fishbone, I+O VS, Fishbone, I+O Laboratory Tests 11/10/16 05:07 Red Blood Count 2.99 L, Mean Corpuscular Volume 100.6 H, Mean Corpuscular Hemoglobin 32.2, Mean Corpuscular Hemoglobin Concent 32.0, Red Cell Distribution Width 17.8 H, Calcium Level 8.4 L, Aspartate Amino Transf (AST/SGOT ) 29, Alanine Aminotransferase (ALT/SGPT) 15, Alkaline Phosphatase 210 H, Total Bilirubin 0.6, Total Protein 6.4, Albumin 2.2 L Vital Signs Date Time Temp Pulse Resp B/P (MAP) Pulse Ox O2 Delivery O2 Flow Rate FiO2 11/10/16 12:34 98/68 (78) 6/25/17 12:28 78 11/10/16 12:00 97.0 18 92 Room Air I&O- Last 24 Hours up to 6 AM 11/10/16 05:59 Intake Total 1860 ml Output Total 890 ml Balance 970 ml YOAN CANDELARIA MD Nov 10, 2016 13:08
[2016-11-10] MEDS: HEPARIN SOD (PORCINE) 5000 UNITS/ML VIAL SQ SCH ×2 (14:46→20:57)
[2016-11-10 16:00] VITALS: BP 111/56
[2016-11-10 19:49] VITALS: BP 96/55
[2016-11-10] MEDS: ACETAMINOPHEN TAB 650MG DOSE (2X325MG) PO PRN (20:57)
[2016-11-11] VITALS (9 sets, daily range): BP systolic 84–98; BP diastolic 38–56
--- NOTE | 2016-11-11 00:53 | ECGEPIP ---
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
[2016-11-11 05:16] LABS: MEAN CORPUSCULAR HEMOGLOBIN 31.8 pg (27.0-33.0); MEAN CORPUSCULAR HGB CONC 31.5 g/dl (32.0-36.5); MEAN CORPUSCULAR VOLUME 100.9 fl (80.0-96.0); RED CELL DISTRIBUTION WIDTH 19.4 % (11.5-14.5); WHITE BLOOD COUNT 3.8 K/mm3 (4.0-10.0)
[2016-11-11 05:22] LABS: ALBUMIN/GLOBULIN RATIO 0.53 (1.00-1.93); BILIRUBIN,TOTAL 0.5 MG/DL (0.2-1.0); CALCIUM LEVEL 7.9 MG/DL (8.8-10.2); CREATININE FOR GFR 2.52 MG/DL (0.55-1.02); GLOMERULAR FILTRATION RATE 20.3 (>45); POTASSIUM SERUM 3.7 MEQ/L (3.5-5.1); TOTAL PROTEIN 5.8 GM/DL (6.4-8.2)
[2016-11-11] MEDS: LEVOTHYROXINE 100MCG TABLET (0.1MG) PO SCH (06:15)
[2016-11-11] MEDS: HEPARIN SOD (PORCINE) 5000 UNITS/ML VIAL SQ SCH ×3 (06:15→21:02)
[2016-11-11] MEDS: SLF 3 ML SYR IV SCH ×3 (06:16→21:02)
[2016-11-11] MEDS: ADVAIR DISKUS 250/50 INH PWD INH SCH ×2 (07:23→20:34)
[2016-11-11] MEDS: OMEPRAZOLE 20 MG CAP PO SCH (08:52)
[2016-11-11] MEDS: BICITRA 30ML SOLN UDC PO SCH ×2 (08:52→21:01)
[2016-11-11] MEDS: ASPIRIN 81 MG ENTERIC TAB PO SCH (08:52)
[2016-11-11] MEDS: MONTELUKAST 10 MG TAB PO SCH (08:53)
[2016-11-11] MEDS: GABAPENTIN 300 MG CAP PO SCH ×2 (08:53→21:01)
[2016-11-11] MEDS: ATORVASTATIN 20 MG TAB PO SCH (08:53)
[2016-11-11] MEDS: ESCITALOPRAM OXALATE 10 MG TAB (LEXAPRO) PO SCH (08:53)
[2016-11-11] MEDS: ISOSORBIDE MON. (IMDUR) 30 MG XR TAB PO SCH (08:59)
[2016-11-11] MEDS: METOPROLOL TART 12.5 MG PER 1/2 TAB PO SCH ×2 (08:59→20:59)
[2016-11-11] MEDS: NYSTATIN 100,000 UNITS/GM TOPICAL PWD 15 GM TOP SCH ×3 (09:00→21:01)
[2016-11-11] MEDS: DOCUSATE SODIUM 100 MG CAP PO SCH ×2 (09:00→21:00)
[2016-11-11] MEDS ORDERED: SODIUM CHLORIDE 0.9% 1000 ML IV ONE (09:00)
[2016-11-11] MEDS: MUPIROCIN 2% OINT 22 GM TUBE TOP SCH (09:01)
[2016-11-11] MEDS: CLOBETASOL PROP 0.05% OINT 30 GM TOP SCH (09:01)
[2016-11-11 10:08] LABS: FOLATE > 24.0 NG/ML (>5.4); VITAMIN B12 LEVEL 1300 PG/ML (247-911)
[2016-11-11 10:47] LABS: PERCENT SATURATION 21.2 % (13.2-37.4)
[2016-11-11] MEDS ORDERED: NS 250 ML IV ONE (12:00)
--- NOTE | 2016-11-11 12:11 | IPN ---
DATE OF SERVICE: 11/10/2016 SUBJECTIVE: Patient was seen and examined at the bedside today in the morning. Patient is asymptomatic at this time. Her creatinine is stable at 2.6 at this time; however, I was told by the nursing staff that she is oliguric today morning. Her intravenous (IV) fluids were held yesterday. Patient is otherwise afebrile and hemodynamically stable. REVIEW OF SYSTEMS: Patient denies any fever, chills, rigors, headache, nausea, vomiting, chest pain or shortness of breath. She denies any pain abdomen, constipation, or diarrhea. Patient reports that she is still unable to walk. She feels very weak and she reports lower extremity edema. Rest of review of systems is negative. OBJECTIVE: Vital signs: Temperature is 98.1 degrees Fahrenheit. Blood pressure is 106/56. Pulse is 77. Respiratory rate of 18, saturating 95% on room air. Intake and output: Urine output recorded as 865 mL yesterday, 425 mL so far today since overnight. Weight on the bed scale is 79.1 kg. PHYSICAL EXAMINATION: General: Patient is awake, alert, oriented times three sitting in the bed. No apparent distress. Head and neck exam: Extraocular muscles intact. Pupils equally round and reactive to light. Mucous membranes are moist. Neck is supple. There is no jugular venous distention (JVD). Patient has a hearing aid attached to the left temporal region. Cardiovascular: S1, S2, regular rate. No murmur, rub or gallop. Respiratory: Chest is clear to auscultation bilaterally. Bilateral equal air entry. No rales or rhonchi. Abdomen: Soft, positive bowel sounds. No ascites. No tenderness. Genitourinary: Patient has an indwelling Bartholomew catheter. Extremities: Patient has chronic venous stasis changes of bilateral lower extremities and she has dressings on the bilateral lower extremities on the ulceration sites. Central nervous system: No focal deficit at this time. Power is 5/5 bilateral upper extremities. Psychiatric: Normal mood and affect. LABORATORY REVIEW: CBC showed a WBC of 3.6, hemoglobin 9.6, platelets are 159. BMP showed sodium 140, potassium 3.9, chloride 110, bicarbonate 21, BUN 33, creatinine 2.6. It was 2.6 yesterday as well. Calcium is 8.4, albumin 2.2. Microbiology: Urine culture is still pending. CURRENT INPATIENT MEDICATIONS: Patient's medications were all reviewed by me. Her IV fluids were stopped. Her gabapentin dose was decreased yesterday. Patient was given one dose of Lasix 40 mg IV today morning and she has been started on metoprolol tartrate 12.5 mg by mouth twice a day. ASSESSMENT: 66-year-old female with unknown past renal history admitted this time because of acute kidney injury and elevated troponins. PLAN: 1. Acute kidney injury. Her baseline renal function is unknown. Her creatinine on transfer from [facility] was 2.9. Right now it is stable at 2.6. Intravenous (IV) fluids have been stopped. I also held her spironolactone yesterday morning. Patient was oliguric. She was given a dose of Lasix 60 mg IV. There are no signs or symptoms of uremia. Electrolytes are acceptable. Continue to monitor intake and output, daily weight and wait for improvement of the renal function. I do not see other nephrotoxic medication being given to this patient and I have already adjusted the dose of medications according to patient's current glomerular filtration rate (GFR). 2. Metabolic acidosis. Patient was started on Bicitra 15 mL by mouth twice a day. Bicarbonate level is improving. It is 21 right now. Continue the current dose of Bicitra. 3. Elevated troponins. Patient's troponin level is trending down right now. It is 0.92 now. She is already on antiplatelet therapy. Rest of the management is as per cardiology recommendations. 4. Hypertension. Blood pressure is acceptable at this time. Blood pressure is actually soft right now. She is currently on isosorbide 30 mg by mouth daily and she has been started on Lopressor 12.5 mg by mouth twice a day. 5. Urinary tract infection. Patient reportedly had resistant urinary tract infection (UTI) in the outside hospital. Her urine culture over here is pending. She is not on any antibiotics at this time. Patient has an indwelling Bartholomew catheter. The plan of care was discussed with the hospitalist, Dr. Jennifer Fink.
[2016-11-11] MEDS: IRON POLYSAC (NIFEREX) 150 MG CAP PO SCH ×2 (12:29→21:01)
--- NOTE | 2016-11-11 14:00 | IPN ---
DATE: 11/11/2016 Mrs. Watts tells me that she is feeling fine and has no complaints. She specifically denies any chest discomfort or shortness of breath. She also denies any abdominal pain. Vital signs: This morning though blood pressure 92/38, heart rate is been 70s and 80s. She is saturating 94% on room air. Fluid balance yesterday was approximately equal. Weight is documented 78.8 kg. She appears chronically ill but not acutely ill. She has a hearing aid on the left. The JVP does not look up. Lungs are relatively clear to auscultation. I do not appreciate any crackles or wheezing or rhonchi. Heart: Exam reveals regular rhythm. There is a systolic murmur at the base not very loud not more than maybe 1 or maximum 2/6 intensity radiating towards her neck. I do not appreciate gallop. Abdomen is very obese but soft, nontender. There is prominent peripheral edema that looks indurated and chronic and skin changes consistent with stasis dermatitis. Peripheral pulses are poorly detectable. Neurologically she is alert and oriented and appropriate. Even though she has hard of hearing, she would answer questions appropriately. LABORATORY: Hemoglobin 8.9, hematocrit 20 and platelet count 154,000. Basic metabolic panel reveals potassium 3.7, BUN 38, creatinine 2.5 and glucose 108. Lipid panel: Total cholesterol 95, triglycerides 77, LDL 46 and HDL is 35. ASSESSMENT/PLAN: Mrs. Watts is a 66-year-old female who appears to be much older than calendar age though. It looks like she is nonambulatory at her baseline for reasons there are not quite clear to me. She came with acute renal failure and somewhat serendipitously was found to have elevated troponin. She did not have any cardiac symptoms. The only ECG I found in the chart revealed no ischemic abnormalities. An echocardiogram revealed preserved left ventricular systolic function, but was suggestive of severe pulmonary hypertension. She had a troponin elevation that was significant and even in renal failure indicates acute coronary syndrome and non-ST elevation myocardial infarction (NSTEMI). She was initially anticoagulated and put on Plavix but because of dropping hemoglobin it was discontinued. She has iron deficiency anemia. At this point she is only on aspirin. She is also on metoprolol (very small dose because of low blood pressure). I do not believe that we can add additional anti-ischemic medications but because she is asymptomatic it is probably not necessary. She is on a good dose of statin and her LDL is well controlled. At this point I would probably continue medical management and await her renal function stabilizes. Subsequently we can consider further elevation on outpatient basis. Because of her renal dysfunction, anemia and allergy to contrast, probably will not have much appetite to pursue invasive management. As far as the pulmonary hypertension is concerned, again ideally she should be anticoagulated but I do not think it is realistically possible because of iron deficiency anemia. The differential diagnosis of that is certainly wide and includes diagnosis like sleep apnea but also possibility of chronic thromboembolic pulmonary hypertension. Again this will need to be further evaluated on outpatient basis. She seems to me so debilitated that I do not see much potential for any aggressive management and conservative management will likely be continued. CARMELITA
--- NOTE | 2016-11-11 14:16 | IPNPDOC ---
Text Note Date of Service The patient was seen on 11/11/16. NOTE Subjective: Patient is a 66 year old female with a PMHx of CAD (no Hx of stents), HTN, DLP, Hx of PE, CHF (EF unknown), Hypothyroidism, COPD, Venous stasis ulcer bilaterally, Hx of Gallstones and PUD / GERD who was transferred from [facility] because of worsening renal function and elevated troponin. Patient was noted to have a UTI as an outpatient and received treatment with Ciprofloxacin as an outpatient. She failed to improve and presented to [facility] ER for evaluation. She was found to have AUDREY (Cr 2.9 / BUN 29) and a minor elevation in troponin (0.25) at that time. She denied any chest pain, SOB, palpitations, N&V or diaphoresis. Upon transferred to [facility] ER for further evaluation. Patient was seen and examined at the bedside. She has no new complaints today. She denies cough, SOB or chest pain. She has had 2 bowel movements already. Objective: Vitals (See below) General: Lying in bed, no acute distress, comfortable, AAOx3 HEENT: NC, AT CVS: RRR, +S1S2 Lungs: Fair air entry b/l, -w/r/r Abdomen: Soft, ND, NT, +BSx4 Extremities: +PPx4, - Edema, - Calf tenderness Skin: Bilateral venous stasis ulcers Assessment and plan: 1. Acute kidney injury vs. Chronic kidney disease - possibly 2/2 pre-renal etiology, possibly 2/2 renal etiology, less likely 2/2 post-renal etiology - Presented from [facility] because of worsening renal function - Physical does not reveal any signs of fluid overload at this time - Cr from [place] was noted to be 2.9, Creatinine has not changed despite gentle hydration - s/p non-anion gap metabolic acidosis, no electrolyte abnormalities - Renal US: No evidence of hydronephrosis - s/p Spironolactone - s/p Furosemide 40 IV x 1 - Nephrology (Dr. Banks) has been consulted; appreciate their input 2. Elevated troponin with history of CAD - possible 2/2 NSTEMI - Elevation from 0.25 to 1.22; has trended down - Denies any chest pain, or symptoms - EKG done this morning reveals T wave inversions in AvL and V2-3, similar to EKG done at [place] - s/p Plavix; Heparin drip never started - c/w ASA 81, Atorvastatin and reduced dose of Metoprolol - c/w Isosorbide mononitrate - ECHO reveals normal LV systolic function and severe pulmonary HTN - Cardiology consulted (Dr. Branch / Dr. Singh); appreciate their input 3. Hypotension - possibly 2/2 medications (Lasix and Metoprolol) - No symptoms of dizziness or chest pain - s/p 500cc NS bolus - Metoprolol dose has been reduced 4. s/p Metabolic acidosis, non-anion gap - c/w Sodium citrate 5. Macrocytic anemia - No evidence of bleeding - Reticulocyte index 0.86; hypoproliferative - B12 and Folate adaquate - Iron panel reveals iron deficiency - c/w Iron supplementation 6. Recent Hx of UTI - No symptoms at this time - No fever or leukocytosis noted - UA currently shows no overt signs of infection - Urine cultures from [place] reveal resistant organism (Sensitive to Ertapenem and Imipenem) - Urine culture reveal no growth - No antibiotics indicated at this time 7. Hx of HTN - BP on lower limits of normal - Not currently on any medications 8. DLP - c/w Atorvastatin 9. Hx of PE 10. Venous stasis ulcers bilaterally 11. Hypothyroidism - c/w Levothyroxine 12. COPD - c/w Advair, Singulair and Duoneb PRN 13. Peripheral neuropathy - c/w Gabapentin 14. Hx of Gallstones - Renal US: reveals incidental stone in gallbladder neck 15. Depression - c/w Escitalopram 16. Chronic back pain - s/p Percocet 1 tab PO - c/w Tylenol PRN 17. PUD / GERD - c/w omeprazole 18. DVT prophylaxis - c/w SCDs and Heparin SQ VS,Fishbone, I+O VS, Fishbone, I+O Laboratory Tests 11/11/16 04:51 Red Blood Count 2.79 L, Mean Corpuscular Volume 100.9 H, Mean Corpuscular Hemoglobin 31.8, Mean Corpuscular Hemoglobin Concent 31.5 L, Red Cell Distribution Width 19.4 H, Calcium Level 7.9 L, Aspartate Amino Transf (AST/SGOT ) 24, Alanine Aminotransferase (ALT/SGPT) 14, Alkaline Phosphatase 209 H, Total Bilirubin 0.5, Triglycerides Level 77, LDL Cholesterol 44.6, Total Protein 5.8 L , Albumin 2.0 L Vital Signs Date Time Temp Pulse Resp B/P (MAP) Pulse Ox O2 Delivery O2 Flow Rate FiO2 11/11/16 08:59 85 92/38 11/11/16 08:39 Room Air 11/11/16 08:00 99.1 19 94 I&O- Last 24 Hours up to 6 AM 11/11/16 06:00 Intake Total 480 ml Output Total 525 ml Balance -45 ml YOAN CANDELARIA MD Nov 11, 2016 14:16
--- NOTE | 2016-11-11 21:26 | IPN ---
DATE: 11/11/2016 SUBJECTIVE: The patient was seen and examined at the bedside today in the morning. She is asymptomatic. The patient had soft blood pressures today in the morning when I saw her. She was given one dose of Lasix 40 mg IV yesterday. She made around 500 mL of urine in the last 24 hours; however, her creatinine is still stable. It was 2.6 yesterday; it is down to 2.5 now. REVIEW OF SYSTEMS: The patient denies any fever, chills, rigors, headache, nausea, vomiting, chest pain, shortness of breath, pain in abdomen, constipation or diarrhea. The rest of the review of systems is negative. OBJECTIVE: VITAL SIGNS: Temperature was 98.9 degrees Fahrenheit. Blood pressure 98/48, pulse 82, respiratory rate of 18, saturating 97% on room air. INTAKE/OUTPUT: Urine output recorded is 500 mL yesterday, 250 mL so far today since overnight. Weight on the bed scale is 78.8 kg. PHYSICAL EXAMINATION: GENERAL: The patient is awake, alert, oriented times three, sitting in bed, in no apparent distress. HEAD AND NECK EXAM: Extraocular muscles intact. Pupils equally round and reactive to light. Mucous membranes are moist. Neck is supple. I could not appreciate the jugular venous distention (JVD) because of patient's body habitus. The patient most likely has cochlear implant on the left side. She has a hearing aid attached to the left temporal region. CARDIOVASCULAR: S1, S2, regular rate. No murmur, rub or gallop. RESPIRATORY: Chest is clear to auscultation bilaterally. Bilateral equal air entry. No rales or rhonchi. ABDOMEN: Abdomen is soft. Positive bowel sounds, nontender. No ascites, no organomegaly. GENITOURINARY: The patient has an indwelling Bartholomew catheter at this time. EXTREMITIES: The patient has chronic venous stasis changes of the bilateral lower extremities. She has dressings on the bilateral lower extremities because of venous stasis ulcers, and she has trace edema of the lower extremities. CENTRAL NERVOUS SYSTEM: No focal neurological deficit. Power is 5/5 in bilateral upper extremities. PSYCHIATRIC: Normal mood and affect. LAB REVIEW: CBC showed a WBC of 3.8, hemoglobin 8.9, platelets are 154. BMP showed sodium 142, potassium 3.7, chloride 112, bicarbonate 21, BUN 38, creatinine is 2.5; it was 2.6 yesterday. Calcium is 7.9. Iron is 35. Iron binding capacity is 165. Transferrin saturation is 21.2. Ferritin is 163. Albumin is 2. B12 level is more than 1300 and folate is more than 24. Microbiology: Urine culture is negative. CURRENT INPATIENT MEDICATIONS: The patient's medications were all reviewed by me. She was given a bolus of normal saline IV times one. Metoprolol dose has been decreased to 6.25 mg by mouth twice a day. There are no other changes in the medications today. ASSESSMENT: A 66-year-old female with unknown renal history, admitted at this time because of acute kidney injury and elevated troponins. PLAN: 1. Acute kidney injury. The patient's baseline renal function is unknown. However, her creatinine on transfer from [facility] was 2.9. Her renal function is gradually improving. Creatinine is down to 2.5. The patient was given one dose of Lasix 40 mg IV yesterday; however, she is hypotensive today. I would not give anymore diuretics at this time. The patient was given a fluid bolus today. 2. Hypotension. The patient was on Lopressor and isosorbide. Blood pressure was low. Lopressor dose has been decreased. She was given an IV fluid bolus today. The rest of the management of antihypertensive regimen is as per cardiology recommendations. 3. Metabolic acidosis. Continue current dose of Bicitra 15 mL by mouth twice a day. 4. Elevated troponins. The patient most likely had non-ST elevation myocardial infarction (NSTEMI). However, her troponin trended down to 0.92. She is currently on aspirin, statins, isosorbide and metoprolol. The rest of the management is as per cardiology recommendations.
[2016-11-11] MEDS: ACETAMINOPHEN TAB 650MG DOSE (2X325MG) PO PRN (23:59)
[2016-11-12] VITALS: BP 92/46
[2016-11-12 04:00] VITALS: BP 98/58
[2016-11-12 05:23] LABS: MEAN CORPUSCULAR HEMOGLOBIN 32.7 pg (27.0-33.0); MEAN CORPUSCULAR HGB CONC 32.9 g/dl (32.0-36.5); MEAN CORPUSCULAR VOLUME 99.3 fl (80.0-96.0); RED CELL DISTRIBUTION WIDTH 19.5 % (11.5-14.5); WHITE BLOOD COUNT 4.7 K/mm3 (4.0-10.0)
[2016-11-12 05:48] LABS: ALBUMIN 2.1 GM/DL (3.2-5.2); ALBUMIN/GLOBULIN RATIO 0.54 (1.00-1.93); BILIRUBIN,TOTAL 0.4 MG/DL (0.2-1.0); CREATININE FOR GFR 1.87 MG/DL (0.55-1.02); GLOMERULAR FILTRATION RATE 28.6 (>45); POTASSIUM SERUM 3.7 MEQ/L (3.5-5.1)
[2016-11-12] MEDS: HEPARIN SOD (PORCINE) 5000 UNITS/ML VIAL SQ SCH ×3 (06:09→21:27)
[2016-11-12] MEDS: LEVOTHYROXINE 100MCG TABLET (0.1MG) PO SCH (06:10)
[2016-11-12] MEDS: SLF 3 ML SYR IV SCH ×3 (06:10→21:28)
[2016-11-12] MEDS: ACETAMINOPHEN TAB 650MG DOSE (2X325MG) PO PRN ×3 (06:12→23:02)
[2016-11-12] MEDS: ADVAIR DISKUS 250/50 INH PWD INH SCH ×2 (07:46→19:53)
[2016-11-12 08:00] VITALS: BP 112/56
[2016-11-12] MEDS: MUPIROCIN 2% OINT 22 GM TUBE TOP SCH (08:56)
[2016-11-12] MEDS: BICITRA 30ML SOLN UDC PO SCH (08:56)
[2016-11-12] MEDS: IRON POLYSAC (NIFEREX) 150 MG CAP PO SCH ×2 (08:56→21:27)
[2016-11-12] MEDS: NYSTATIN 100,000 UNITS/GM TOPICAL PWD 15 GM TOP SCH ×3 (08:56→21:27)
[2016-11-12] MEDS: ESCITALOPRAM OXALATE 10 MG TAB (LEXAPRO) PO SCH (08:56)
[2016-11-12] MEDS: CLOBETASOL PROP 0.05% OINT 30 GM TOP SCH (08:56)
[2016-11-12] MEDS: ISOSORBIDE MON. (IMDUR) 30 MG XR TAB PO SCH (08:57)
[2016-11-12] MEDS: GABAPENTIN 300 MG CAP PO SCH ×2 (08:57→21:27)
[2016-11-12] MEDS: ATORVASTATIN 20 MG TAB PO SCH (08:57)
[2016-11-12] MEDS: OMEPRAZOLE 20 MG CAP PO SCH (08:58)
[2016-11-12] MEDS: METOPROLOL TART 12.5 MG PER 1/2 TAB PO SCH ×2 (08:58→20:35)
[2016-11-12] MEDS: ASPIRIN 81 MG ENTERIC TAB PO SCH (08:58)
[2016-11-12] MEDS: DOCUSATE SODIUM 100 MG CAP PO SCH ×2 (08:58→21:27)
[2016-11-12] MEDS: MONTELUKAST 10 MG TAB PO SCH (08:58)
[2016-11-12] MEDS ORDERED: BICITRA 30ML SOLN UDC PO SCH (09:00)
[2016-11-12 12:00] VITALS: BP 122/62
[2016-11-12] MEDS ORDERED: METO1TAB87 PO (12:29)
[2016-11-12] MEDS ORDERED: ATOR1TAB21 PO (12:29)
[2016-11-12] MEDS ORDERED: COLA100C5 PO (12:29)
[2016-11-12] MEDS ORDERED: ASPI81TAEC PO (12:29)
[2016-11-12] MEDS ORDERED: GABA-282 PO (12:29)
[2016-11-12] MEDS ORDERED: FERR325T3 PO (12:29)
[2016-11-12] MEDS ORDERED: BICI30EL PO (12:33)
--- NOTE | 2016-11-12 13:03 | IPNPDOC ---
Text Note Date of Service The patient was seen on 11/12/16. NOTE Subjective: Patient is a 66 year old female with a PMHx of CAD (no Hx of stents), HTN, DLP, Hx of PE, CHF (EF unknown), Hypothyroidism, COPD, Venous stasis ulcer bilaterally, Hx of Gallstones and PUD / GERD who was transferred from [facility] because of worsening renal function and elevated troponin. Patient was noted to have a UTI as an outpatient and received treatment with Ciprofloxacin as an outpatient. She failed to improve and presented to [facility] ER for evaluation. She was found to have AUDREY (Cr 2.9 / BUN 29) and a minor elevation in troponin (0.25) at that time. She denied any chest pain, SOB, palpitations, N&V or diaphoresis. Upon transferred to [facility] ER for further evaluation. Patient was seen and examined at the bedside. She denies any problems today and is feeling well. She has not been cleared by physial therapy for discharge home. Objective: Vitals (See below) General: Lying in bed, no acute distress, comfortable, AAOx3 HEENT: NC, AT CVS: RRR, +S1S2 Lungs: Fair air entry b/l, -w/r/r Abdomen: Soft, ND, NT, +BSx4 Extremities: +PPx4, - Edema, - Calf tenderness Skin: Bilateral venous stasis ulcers Assessment and plan: 1. Acute kidney injury vs. Chronic kidney disease - possibly 2/2 pre-renal etiology, possibly 2/2 renal etiology, less likely 2/2 post-renal etiology - Presented from [facility] because of worsening renal function - Physical does not reveal any signs of fluid overload at this time - Cr from [place] was noted to be 2.9, creatinine has begun to improve, currently at 1.87 - s/p non-anion gap metabolic acidosis, no electrolyte abnormalities - Renal US: No evidence of hydronephrosis - s/p Spironolactone - s/p Furosemide 40 IV x 1 - Nephrology (Dr. Banks) has been consulted; appreciate their input 2. Elevated troponin with history of CAD - possible 2/2 NSTEMI - Elevation from 0.25 to 1.22; has trended down - Denies any chest pain, or symptoms - EKG done this morning reveals T wave inversions in AvL and V2-3, similar to EKG done at [place] - s/p Plavix; Heparin drip never started - c/w ASA 81, Atorvastatin 40, Metoprolol 6.25 BID - c/w Isosorbide mononitrate - ECHO reveals normal LV systolic function and severe pulmonary HTN - Cardiology consulted (Dr. Branch / Dr. Singh); appreciate their input - Will have patient follow up with cardiology as an outpatient 3. s/p Hypotension - possibly 2/2 medications (Lasix and Metoprolol) - No symptoms of dizziness or chest pain - s/p 500cc NS bolus - c/w reduced dose Metoprolol 4. s/p Metabolic acidosis, non-anion gap - c/w Sodium citrate 5. Macrocytic anemia - No evidence of bleeding - Reticulocyte index 0.86; hypoproliferative - B12 and Folate adequate - Iron panel reveals iron deficiency - c/w Iron supplementation 6. Recent Hx of UTI - No symptoms at this time - No fever or leukocytosis noted - UA currently shows no overt signs of infection - Urine cultures from [place] reveal resistant organism (Sensitive to Ertapenem and Imipenem) - Urine culture reveal no growth - No antibiotics indicated at this time 7. Hx of HTN - BP on lower limits of normal - Not currently on any medications 8. DLP - c/w Atorvastatin 9. Hx of PE 10. Venous stasis ulcers bilaterally 11. Hypothyroidism - c/w Levothyroxine 12. COPD - c/w Advair, Singulair and Duoneb PRN 13. Peripheral neuropathy - c/w Gabapentin 14. Hx of Gallstones - Renal US: reveals incidental stone in gallbladder neck 15. Depression - c/w Escitalopram 16. Chronic back pain - s/p Percocet 1 tab PO - c/w Tylenol PRN 17. PUD / GERD - c/w omeprazole 18. DVT prophylaxis - c/w SCDs and Heparin SQ Disposition: - will c/w physical therapy until cleared for discharge home Bree UNDERWOOD, I+O Bree UNDERWOOD, I+O Laboratory Tests 11/12/16 05:08 Red Blood Count 2.80 L, Mean Corpuscular Volume 99.3 H, Mean Corpuscular Hemoglobin 32.7, Mean Corpuscular Hemoglobin Concent 32.9, Red Cell Distribution Width 19.5 H, Calcium Level 8.0 L, Aspartate Amino Transf (AST/SGOT ) 26, Alanine Aminotransferase (ALT/SGPT) 13, Alkaline Phosphatase 241 H, Total Bilirubin 0.4, Total Protein 6.0 L, Albumin 2.1 L Vital Signs Date Time Temp Pulse Resp B/P (MAP) Pulse Ox O2 Delivery O2 Flow Rate FiO2 11/12/16 12:00 98.2 75 20 122/62 (82) 99 Room Air I&O- Last 24 Hours up to 6 AM 11/12/16 05:59 Intake Total 1640 ml Output Total 200 ml Balance 1440 ml YOAN CANDELARIA MD Nov 12, 2016 13:03
--- NOTE | 2016-11-12 19:20 | IPN ---
DATE: 11/12/2016 SUBJECTIVE: The patient was seen and examined at the bedside today in the morning. She is stable. Her renal function is improving. Creatinine is down to 1.8. She denies any active complaints. The last 24 hour events were noted. The patient's blood pressure medications were adjusted because of hypertension and she a needed a fluid bolus. REVIEW OF SYSTEMS: The patient denies any fever, chills, rigors, headache, nausea, vomiting, chest pain, shortness of breath, pain in abdomen, constipation or diarrhea. The rest of the review of systems is negative. OBJECTIVE: VITAL SIGNS: Temperature was 98.2 degrees Fahrenheit. Blood pressure 122/62, pulse 75, respiratory rate of 18, saturating 99% on room air. INTAKE/OUTPUT: Urine output recorded yesterday is 250. Urine output reordered so far today since overnight is 300 mL. Weight on the bed scale is 79.6 kg. PHYSICAL EXAMINATION: GENERAL: The patient is awake, alert, oriented times three, laying in bed, in no apparent distress. HEAD AND NECK EXAM: Extraocular muscles intact. Pupils equally round and reactive to light. Patient has a hearing aid attached to the left temporal region. CARDIOVASCULAR: S1, S2, regular rate. No murmur, rub or gallop. RESPIRATORY: Chest is clear to auscultation bilaterally. Bilateral equal air entry. No rales or rhonchi. ABDOMEN: Abdomen is soft. Positive bowel sounds, nontender. No ascites, no organomegaly. GENITOURINARY: The patient has an indwelling Bartholomew catheter at this time. EXTREMITIES: The patient has chronic venous stasis changes of the bilateral lower extremities. She has very trace edema. CENTRAL NERVOUS SYSTEM: No focal neurological deficit. Power is 5/5 in bilateral upper extremities. LAB REVIEW: CBC showed a WBC of 4.7, hemoglobin 9.1, platelets are 148. BMP showed sodium 141, potassium 3.7, chloride 111, bicarbonate 24, BUN 35, creatinine is 1.8; it was 2.5 yesterday. Calcium is 8, albumin 2.1 CURRENT INPATIENT MEDICATIONS: The patient's medications were all reviewed by me. She was started on iron tablet yesterday. Metoprolol dose was decreased to 6.25 mg by mouth twice a day yesterday. There are no other changes in the medications today. ASSESSMENT: A 66-year-old female with unknown past renal history, admitted at this time because of acute kidney injury and elevated troponins. PLAN: 1. Acute kidney injury. The patient's baseline renal function is unknown. Her creatinine on transfer from [facility] was 2.9. Creatinine is trending down, it is 1.8 today. Her antihypertensive regimen was changed and diuretics were held. 2. Hypertension. The patient was hypotensive yesterday requiring a fluid bolus. Blood pressure medication dosage was adjusted. Continue current dose of Lopressor 6.25 mg by mouth twice a day and isosorbide 30 mg by mouth daily. Blood pressure is acceptable at this time. 3. Metabolic acidosis. Continue current dose of Bicitra 15 mL by mouth twice a day. Bicarbonate level has improved to 24. If bicarbonate stays stable I will decrease the Bicitra dose to 15 mL by mouth daily by tomorrow morning. 4. Chronic renal stasis changes and lower extremity edema. Patient was on spironolactone initially when I saw the patient. At this time I would hold off on giving the diuretics to this patient. She needs to followup as outpatient and if needed diuretics will be started os outpatient. DISCHARGE PLANNING: It is okay to discharge the patient from a nephrology standpoint. Plan of care was discussed with the hospitalists. Dr. Jennifer Fink.
[2016-11-12 20:00] VITALS: BP 90/48
[2016-11-13] MEDS: PERCOCET 5MG/325MG TAB PO PRN ×5 (00:52→22:11)
[2016-11-13 00:55] VITALS: BP 112/50
[2016-11-13 04:00] VITALS: BP 94/54
[2016-11-13 05:13] LABS: MEAN CORPUSCULAR HEMOGLOBIN 32.7 pg (27.0-33.0); MEAN CORPUSCULAR HGB CONC 32.5 g/dl (32.0-36.5); MEAN CORPUSCULAR VOLUME 100.6 fl (80.0-96.0); RED CELL DISTRIBUTION WIDTH 19.3 % (11.5-14.5); WHITE BLOOD COUNT 4.7 K/mm3 (4.0-10.0)
[2016-11-13 05:33] LABS: ALBUMIN 2.2 GM/DL (3.2-5.2); ALBUMIN/GLOBULIN RATIO 0.56 (1.00-1.93); BILIRUBIN,TOTAL 0.5 MG/DL (0.2-1.0); CREATININE FOR GFR 1.31 MG/DL (0.55-1.02); GLOMERULAR FILTRATION RATE 43.1 (>45); TOTAL PROTEIN 6.1 GM/DL (6.4-8.2)
[2016-11-13] MEDS: LEVOTHYROXINE 100MCG TABLET (0.1MG) PO SCH (05:46)
[2016-11-13] MEDS: HEPARIN SOD (PORCINE) 5000 UNITS/ML VIAL SQ SCH ×3 (05:47→21:48)
[2016-11-13] MEDS: SLF 3 ML SYR IV SCH ×3 (05:47→21:48)
--- NOTE | 2016-11-13 07:38 | ECGEPIP ---
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
[2016-11-13] MEDS: ADVAIR DISKUS 250/50 INH PWD INH SCH ×2 (07:53→19:28)
[2016-11-13 08:00] VITALS: BP 140/76
[2016-11-13] MEDS: BICITRA 30ML SOLN UDC PO SCH (08:51)
[2016-11-13] MEDS: ASPIRIN 81 MG ENTERIC TAB PO SCH (08:54)
[2016-11-13] MEDS: ISOSORBIDE MON. (IMDUR) 30 MG XR TAB PO SCH (08:54)
[2016-11-13] MEDS: DOCUSATE SODIUM 100 MG CAP PO SCH ×2 (08:55→21:00)
[2016-11-13] MEDS: OMEPRAZOLE 20 MG CAP PO SCH (08:55)
[2016-11-13] MEDS: GABAPENTIN 300 MG CAP PO SCH ×2 (08:55→21:48)
[2016-11-13] MEDS: ESCITALOPRAM OXALATE 10 MG TAB (LEXAPRO) PO SCH (08:55)
[2016-11-13] MEDS: ATORVASTATIN 20 MG TAB PO SCH (08:55)
[2016-11-13] MEDS: METOPROLOL TART 12.5 MG PER 1/2 TAB PO SCH ×2 (08:56→21:47)
[2016-11-13] MEDS: MONTELUKAST 10 MG TAB PO SCH (08:56)
[2016-11-13] MEDS: MUPIROCIN 2% OINT 22 GM TUBE TOP SCH (08:57)
[2016-11-13] MEDS: NYSTATIN 100,000 UNITS/GM TOPICAL PWD 15 GM TOP SCH ×3 (08:58→22:10)
[2016-11-13] MEDS: CLOBETASOL PROP 0.05% OINT 30 GM TOP SCH (08:58)
[2016-11-13] MEDS: IRON POLYSAC (NIFEREX) 150 MG CAP PO SCH ×2 (11:46→21:48)
--- NOTE | 2016-11-13 12:51 | IPN ---
DATE OF SERVICE: 11/13/2016 SUBJECTIVE: The patient was seen and examined at the bedside today in the morning. She denies any active complaint. Renal function is stable. Creatinine is down to 1.3 today. She is pending physical therapy clearance for discharge home. REVIEW OF SYSTEMS: The patient denies any fevers, chills, rigors, headache, nausea, vomiting, chest pain, shortness of breath, pain abdomen, constipation, or diarrhea. Her Bartholomew catheter was also removed. OBJECTIVE: VITAL SIGNS: Temperature is 97.2 degrees Fahrenheit. Blood pressure is 140/76. Pulse is 72. Respiratory rate 18. Saturating 97% on room air. INTAKE AND OUTPUT: Urine output recorded is 700 mL yesterday, 325 mL so far today. Weight in the bed scale is 81.4 kg. PHYSICAL EXAMINATION: GENERAL: The patient is awake, alert, oriented times three, laying in bed, in no apparent distress. HEAD AND NECK EXAMINATION: Extraocular muscles intact. Pupils equally round and reactive to light. Mucous membranes are moist. The patient has a hearing aid attached to the left temporal region. CARDIOVASCULAR: S1, S2, regular rate. No murmur, rub, and gallop. RESPIRATORY: Chest is clear to auscultation bilaterally. Bilateral equal air entry. No rales or rhonchi. ABDOMEN: Is soft. Positive bowel sounds, nontender. No ascites, no organomegaly. GENITOURINARY: The patient's Bartholomew catheter is out now. EXTREMITIES: The patient has chronic venous stasis changes of the bilateral lower extremities and very trace edema of the extremities. CENTRAL NERVOUS SYSTEM (ITALIAN LECTURER): No focal neurological deficit. Power is 5/5 in bilateral upper extremities. LABORATORY REVIEW: CBC showed a WBC of 4.7, hemoglobin 9.4, platelets are 152. BMP showed sodium 139, potassium is 4, chloride 109, bicarbonate is 23, BUN 34, creatinine is 1.3; it was 2.5 yesterday. Calcium is 8, albumin 2.2. CURRENT INPATIENT MEDICATIONS: The patient's medications were all reviewed by me. I have changed the patient's Bicitra dose to 15 mL by mouth daily. There is no other change in the medications today as compared with yesterday. ASSESSMENT: A 66-year-old female with unknown past renal history, admitted this time because of acute kidney injury and elevated troponins. PLAN: 1. Acute kidney injury. The patient's baseline renal function is unknown. However, her creatinine continues to improve. It is down to 1.3 today. Avoid use of spironolactone in future. Diuretics as needed in future. Currently, they are on hold. 2. Hypertension. The patient's blood pressure medications were adjusted because of hypotension. Her vital signs are acceptable at this time. Continue current dose of metoprolol 6.25 mg by mouth twice a day, isosorbide 30 mg by mouth daily. 3. Metabolic acidosis. Bicarbonate level is acceptable. Continue Bicitra 15 mL by mouth daily. 4. Chronic venous stasis changes of lower extremities. The patient was on spironolactone, which was stopped because of acute kidney injury. No need of diuretics at this time. If needed, the patient can be started on lower dose of Lasix. Avoid use of spironolactone in future. The patient's renal function continues to improve. Nephrology service would sign off at this moment. It is okay to discharge the patient from nephrology standpoint.
--- NOTE | 2016-11-13 13:05 | IPNPDOC ---
Text Note Date of Service The patient was seen on 11/13/16. NOTE Subjective: Patient is a 66 year old female with a PMHx of CAD (no Hx of stents), HTN, DLP, Hx of PE, CHF (EF unknown), Hypothyroidism, COPD, Venous stasis ulcer bilaterally, Hx of Gallstones and PUD / GERD who was transferred from [facility] because of worsening renal function and elevated troponin. Patient was noted to have a UTI as an outpatient and received treatment with Ciprofloxacin as an outpatient. She failed to improve and presented to [facility] ER for evaluation. She was found to have AUDREY (Cr 2.9 / BUN 29) and a minor elevation in troponin (0.25) at that time. She denied any chest pain, SOB, palpitations, N&V or diaphoresis. Upon transferred to [facility] ER for further evaluation. Patient was seen and examined at the bedside. Reports that she feels fine. Has not been cleared by physical therapy. Will continue with additional sessions today. Objective: Vitals (See below) General: Lying in bed, no acute distress, comfortable, AAOx3 HEENT: NC, AT CVS: RRR, +S1S2 Lungs: Fair air entry b/l, -w/r/r Abdomen: Soft, ND, NT, +BSx4 Extremities: +PPx4, - Edema, - Calf tenderness Skin: Bilateral venous stasis ulcers Assessment and plan: 1. Acute kidney injury - possibly 2/2 pre-renal etiology, possibly 2/2 renal etiology, less likely 2/2 post-renal etiology - Presented from [facility] because of worsening renal function - Physical does not reveal any signs of fluid overload at this time - Cr from [place] was noted to be 2.9, creatinine has begun to improve, currently at 1.31 - s/p non-anion gap metabolic acidosis, no electrolyte abnormalities - Renal US: No evidence of hydronephrosis - s/p Spironolactone - s/p Furosemide 40 IV x 1 - Nephrology (Dr. Banks) input has been appreciated; will sign off 2. Elevated troponin with history of CAD - possible 2/2 NSTEMI - Elevation from 0.25 to 1.22; has trended down - Denies any chest pain, or symptoms - EKG done this morning reveals T wave inversions in AvL and V2-3, similar to EKG done at [place] - s/p Plavix; Heparin drip never started - c/w ASA 81, Atorvastatin 40, Metoprolol 6.25 BID - c/w Isosorbide mononitrate - ECHO reveals normal LV systolic function and severe pulmonary HTN - Cardiology consulted (Dr. Branch / Dr. Singh); appreciate their input - Will have patient follow up with cardiology as an outpatient 3. s/p Hypotension - possibly 2/2 medications (Lasix and Metoprolol) - No symptoms of dizziness or chest pain - s/p 500cc NS bolus - c/w reduced dose Metoprolol 4. s/p Metabolic acidosis, non-anion gap - c/w Sodium citrate 5. Macrocytic anemia - No evidence of bleeding - Reticulocyte index 0.86; hypoproliferative - B12 and Folate adequate - Iron panel reveals iron deficiency - c/w Iron supplementation 6. Recent Hx of UTI - No symptoms at this time - No fever or leukocytosis noted - UA currently shows no overt signs of infection - Urine cultures from [place] reveal resistant organism (Sensitive to Ertapenem and Imipenem) - Urine culture reveal no growth - No antibiotics indicated at this time 7. Hx of HTN - BP on lower limits of normal - c/w low dose metoprolol 8. DLP - c/w Atorvastatin 9. Hx of PE 10. Venous stasis ulcers bilaterally 11. Hypothyroidism - c/w Levothyroxine 12. COPD - c/w Advair, Singulair and Duoneb PRN 13. Peripheral neuropathy - c/w Gabapentin 14. Hx of Gallstones - Renal US: reveals incidental stone in gallbladder neck 15. Depression - c/w Escitalopram 16. Chronic back pain - s/p Percocet 1 tab PO - c/w Tylenol PRN 17. PUD / GERD - c/w omeprazole 18. DVT prophylaxis - c/w SCDs and Heparin SQ Disposition: - More physical therapy until cleared for discharge - Possible placement if unable to get cleared by PT VS,Bree, I+O VS, Bree, I+O Laboratory Tests 11/13/16 04:42 Red Blood Count 2.86 L, Mean Corpuscular Volume 100.6 H, Mean Corpuscular Hemoglobin 32.7, Mean Corpuscular Hemoglobin Concent 32.5, Red Cell Distribution Width 19.3 H, Calcium Level 8.0 L, Aspartate Amino Transf (AST/SGOT ) 26, Alanine Aminotransferase (ALT/SGPT) 14, Alkaline Phosphatase 251 H, Total Bilirubin 0.5, Total Protein 6.1 L, Albumin 2.2 L Vital Signs Date Time Temp Pulse Resp B/P (MAP) Pulse Ox O2 Delivery O2 Flow Rate FiO2 11/13/16 09:23 18 11/13/16 08:56 72 140/76 11/13/16 08:40 Room Air 11/13/16 08:00 97.2 97 I&O- Last 24 Hours up to 6 AM 11/13/16 06:00 Intake Total 470 ml Output Total 825 ml Balance -355 ml YOAN CANDELARIA MD Nov 13, 2016 13:05
[2016-11-13] MEDS ORDERED: ACETAMINOPHEN TAB 650MG DOSE (2X325MG) PO PRN (15:00)
[2016-11-13 16:00] VITALS: BP 112/56
[2016-11-13] MEDS: ACETAMINOPHEN TAB 650MG DOSE (2X325MG) PO PRN (19:57)
[2016-11-13 20:00] VITALS: BP 128/59
[2016-11-13 22:00] VITALS: BP 104/56
[2016-11-14 06:00] VITALS: BP 119/58
[2016-11-14] MEDS: SLF 3 ML SYR IV SCH ×3 (06:14→21:41)
[2016-11-14] MEDS: LEVOTHYROXINE 100MCG TABLET (0.1MG) PO SCH (06:14)
[2016-11-14] MEDS: HEPARIN SOD (PORCINE) 5000 UNITS/ML VIAL SQ SCH ×3 (06:14→21:41)
[2016-11-14] MEDS: PERCOCET 5MG/325MG TAB PO PRN ×3 (06:17→19:03)
[2016-11-14 06:24] LABS: MEAN CORPUSCULAR HEMOGLOBIN 31.5 pg (27.0-33.0); MEAN CORPUSCULAR HGB CONC 31.7 g/dl (32.0-36.5); MEAN CORPUSCULAR VOLUME 99.1 fl (80.0-96.0); RED CELL DISTRIBUTION WIDTH 19.1 % (11.5-14.5); WHITE BLOOD COUNT 6.1 K/mm3 (4.0-10.0)
[2016-11-14 06:49] LABS: ALBUMIN/GLOBULIN RATIO 0.45 (1.00-1.93); BILIRUBIN,TOTAL 0.6 MG/DL (0.2-1.0); CALCIUM LEVEL 8.8 MG/DL (8.8-10.2); CREATININE FOR GFR 1.05 MG/DL (0.55-1.02); GLOMERULAR FILTRATION RATE 55.7 (>45); POTASSIUM SERUM 4.4 MEQ/L (3.5-5.1); TOTAL PROTEIN 6.4 GM/DL (6.4-8.2)
[2016-11-14] MEDS: ADVAIR DISKUS 250/50 INH PWD INH SCH ×2 (07:44→20:46)
[2016-11-14] MEDS: ATORVASTATIN 20 MG TAB PO SCH (10:28)
[2016-11-14] MEDS: ASPIRIN 81 MG ENTERIC TAB PO SCH (10:30)
[2016-11-14] MEDS: ESCITALOPRAM OXALATE 10 MG TAB (LEXAPRO) PO SCH (10:31)
[2016-11-14] MEDS: GABAPENTIN 300 MG CAP PO SCH ×2 (10:32→21:40)
[2016-11-14] MEDS: BICITRA 30ML SOLN UDC PO SCH (10:33)
[2016-11-14] MEDS: IRON POLYSAC (NIFEREX) 150 MG CAP PO SCH ×2 (10:37→21:40)
[2016-11-14] MEDS: ISOSORBIDE MON. (IMDUR) 30 MG XR TAB PO SCH (10:38)
[2016-11-14] MEDS: MONTELUKAST 10 MG TAB PO SCH (10:38)
[2016-11-14] MEDS: METOPROLOL TART 12.5 MG PER 1/2 TAB PO SCH ×2 (10:38→21:00)
[2016-11-14] MEDS: OMEPRAZOLE 20 MG CAP PO SCH (11:43)
[2016-11-14] MEDS: ACETAMINOPHEN TAB 650MG DOSE (2X325MG) PO PRN (11:47)
[2016-11-14] MEDS: NYSTATIN 100,000 UNITS/GM TOPICAL PWD 15 GM TOP SCH ×3 (11:47→21:40)
[2016-11-14] MEDS: MUPIROCIN 2% OINT 22 GM TUBE TOP SCH (11:48)
[2016-11-14] MEDS: CLOBETASOL PROP 0.05% OINT 30 GM TOP SCH (11:48)
[2016-11-14] MEDS: DOCUSATE SODIUM 100 MG CAP PO SCH ×2 (11:49→21:40)
[2016-11-14 14:00] VITALS: BP 100/64
--- NOTE | 2016-11-14 14:32 | IPN ---
DATE: 11/14/2016 Milagro, apparently from a medical standpoint, appears to be stable for discharge. Watch Mechanic was in the room at the time of my visit. It appears the patient is going to need 24-hour services, which are not available. She would be an appropriate patient for custodial facility (SNF). Her acute issues on admission were acute renal failure and an elevated troponin. The renal failure has resolved. She did see Dr. Singh in consultation for her heart issues. She currently is on a statin and aspirin and a small dose of beta jing, also is on oral nitrates. Her current pulses in the high 60s to 70s. Blood pressure has been well controlled. Unresolved issues at discharge are normochromic normocytic anemia. Her hematocrit is 30. Review of her previous records are noteworthy for absence of any previous GI evaluation. She is currently on iron although her iron studies were not that convincing for an iron deficient anemia. On exam she is very pleasant. I believe she is cognitively impaired to some extent. She has poor insight into her predicament. Her cardiac was regular. Chest is clear. Abdomen is obese with central obesity, question of mild liver enlargement. IMPRESSION AND PLAN: Status post elevation in troponin. Her troponins peaked at 1.22. Her electrocardiogram did not show any acute issues, apparently. She did have a echo. The right ventricular free wall appeared to be hypokinetic, otherwise no other wall motion abnormalities. EF was 55-60%. More specifically, electrocardiogram showed normal sinus rhythm, first-degree block, possible LVH. Left anterior hemiblock and poor R-wave progression. She did have high lateral T-wave abnormalities, which may have been associated with LVH. 2. Lipids, addressed. 3. Chronic venous disease. 4. Hypothyroid: She is on replacement. 5. Obstructive airways disease: Medications are appropriate. 6. Peripheral neuropathy, stable. No complaints. 7. Depression: Continues on Lexapro. 8. History of pulmonary embolus, currently off anticoagulation.
[2016-11-14 20:00] VITALS: BP 100/64
[2016-11-15] MEDS: PERCOCET 5MG/325MG TAB PO PRN ×4 (02:06→21:10)
[2016-11-15] MEDS: LEVOTHYROXINE 100MCG TABLET (0.1MG) PO SCH (05:42)
[2016-11-15] MEDS: HEPARIN SOD (PORCINE) 5000 UNITS/ML VIAL SQ SCH ×3 (05:42→21:09)
[2016-11-15] MEDS: SLF 3 ML SYR IV SCH ×2 (05:43→13:19)
[2016-11-15 06:00] VITALS: BP 125/56
[2016-11-15 06:20] LABS: MEAN CORPUSCULAR HEMOGLOBIN 33.3 pg (27.0-33.0); MEAN CORPUSCULAR VOLUME 100.9 fl (80.0-96.0); RED CELL DISTRIBUTION WIDTH 19.8 % (11.5-14.5); WHITE BLOOD COUNT 3.5 K/mm3 (4.0-10.0)
[2016-11-15 07:43] LABS: ALBUMIN 2.1 GM/DL (3.2-5.2); ALBUMIN/GLOBULIN RATIO 0.53 (1.00-1.93); BILIRUBIN,TOTAL 0.4 MG/DL (0.2-1.0); CALCIUM LEVEL 8.9 MG/DL (8.8-10.2); CREATININE FOR GFR 1.31 MG/DL (0.55-1.02); GLOMERULAR FILTRATION RATE 43.1 (>45); POTASSIUM SERUM 4.7 MEQ/L (3.5-5.1); TOTAL PROTEIN 6.1 GM/DL (6.4-8.2)
[2016-11-15] MEDS: ADVAIR DISKUS 250/50 INH PWD INH SCH ×2 (07:49→20:05)
[2016-11-15] MEDS: NYSTATIN 100,000 UNITS/GM TOPICAL PWD 15 GM TOP SCH ×3 (08:08→21:11)
[2016-11-15] MEDS: OMEPRAZOLE 20 MG CAP PO SCH (08:09)
[2016-11-15] MEDS: IRON POLYSAC (NIFEREX) 150 MG CAP PO SCH ×2 (08:09→21:09)
[2016-11-15] MEDS: ATORVASTATIN 20 MG TAB PO SCH (08:09)
[2016-11-15] MEDS: BICITRA 30ML SOLN UDC PO SCH (08:09)
[2016-11-15] MEDS: GABAPENTIN 300 MG CAP PO SCH ×2 (08:09→21:10)
[2016-11-15] MEDS: ASPIRIN 81 MG ENTERIC TAB PO SCH (08:09)
[2016-11-15] MEDS: ESCITALOPRAM OXALATE 10 MG TAB (LEXAPRO) PO SCH (08:09)
[2016-11-15] MEDS: MONTELUKAST 10 MG TAB PO SCH (08:10)
[2016-11-15] MEDS: METOPROLOL TART 12.5 MG PER 1/2 TAB PO SCH ×2 (08:10→21:10)
[2016-11-15] MEDS: CLOBETASOL PROP 0.05% OINT 30 GM TOP SCH (08:11)
[2016-11-15] MEDS: ISOSORBIDE MON. (IMDUR) 30 MG XR TAB PO SCH (08:11)
[2016-11-15] MEDS: DOCUSATE SODIUM 100 MG CAP PO SCH ×2 (08:11→21:10)
[2016-11-15] MEDS: MUPIROCIN 2% OINT 22 GM TUBE TOP SCH (08:11)
--- NOTE | 2016-11-15 10:59 | IPN ---
DATE: 11/15/2016 66-year-old female seen at bedside resting comfortably. She has no complaints. No chest pain. No nausea or vomiting. She states her appetite is good. Bowel movements are regular and she is voiding fine. OBJECTIVE: Temperature 97.1, pulse 73, respiratory rate is 20, blood pressure (BP) 125/56, SPO2 is 97% on room air. General: The patient appears to be in no acute distress. She is alert, pleasant. HEENT: Unremarkable. Lungs: Clear. Heart: Regular rate and rhythm. Abdomen: Soft. Extremities: Chronic venous stasis changes, some mild edema. No calf tenderness. LABORATORY DATA: White count 3.5, hemoglobin 9.4, platelets 112,000. Sodium 141, potassium 4.7, chloride 112, bicarbonate 23, anion gap 6, BUN is 35, creatinine 1.31, glucose 93, AST 26, ALT 17, alkaline phosphatase 281, total bilirubin 0.4, albumin is 2.1. ASSESSMENT/PLAN: 1. Acute kidney injury secondary to prerenal etiology. No signs of volume overload at this time. Creatinine at [facility] was 2.9 prior to being discharged. She does appear to be improved. Renal ultrasound showed no evidence of hydronephrosis. Nephrology has signed off since she does appear to be at her baseline. 2. Elevated troponin with history of coronary disease, possibly related to non ST elevated myocardial infarction (NE). She has trended down. She denies any chest pain. No symptoms. Electrocardiogram (EKG) repeat did reveal some T-wave inversions, aVL and V2 through V3. However, this was similar to the EKG done at [place]. Continue with aspirin, Lipitor, metoprolol and isosorbide mononitrate. Echo showed LV systolic function with severe pulmonary hypertension. Appreciate cardiology's input. She will need outpatient followup with cardiology once she is discharged 3. Status post hypotension, resolved. No symptoms. No chest pain. No dizziness. We did reduce the dose previously of metoprolol. 4. Metabolic acidosis, non anion gap, resolved. 5. Macrocytic anemia. No evidence of bleeding. Reticulocyte count is 0.86. B12 and folate levels are adequate. Iron panel did show some iron deficiency. Will continue with iron supplementation. 6. Recent history of urinary tract infection (UTI). No signs or symptoms. No leukocytosis. No current antibiotics. This was a previous urine urinary tract infection treated throughout [facility]. 7. History of hypertension. Continue with lower dose of metoprolol. 8. Hyperlipidemia. Continue Lipitor. 8. History of pulmonary embolism (PE). No current issues. 9. Venous stasis ulcers bilaterally as indicated. 10. Hypothyroidism. Continue on levothyroxine. 11. Chronic obstructive pulmonary disease (COPD). Continue with Advair, Singulair, DuoNebs as needed (p.r.n.). 12. Peripheral neuropathy. Continue on gabapentin. 13. History of gallstones. Renal ultrasound did show incidental stone in the gallbladder neck. Her total bilirubin was unremarkable. She did have a slight bump in her alkaline phosphatase. We will continue to follow. She is to follow up with outpatient followup. No acute issues currently. 14. Depression. Continue citalopram. 15. Chronic back pain. Continue Tylenol p.r.n. 16. Gastroesophageal reflux disease (GERD) with history of peptic ulcer disease. Continue on omeprazole. 17. Deep vein thrombosis (DVT) prophylaxis with subcutaneous heparin. DISPOSITION: The patient will need ongoing physical therapy. We did have a discussion with physical therapy as well as case management that she may actually need subacute rehab since she has not been cleared for safe home discharge at this point. At any rate, she likely will need eventual home public health and physical therapy (PT) for her ongoing issues, but currently we are trying to delineate whether or not she needs subacute rehab versus placement.
[2016-11-15 22:00] VITALS: BP 105/50
[2016-11-16] MEDS: LEVOTHYROXINE 100MCG TABLET (0.1MG) PO SCH (05:36)
[2016-11-16] MEDS: HEPARIN SOD (PORCINE) 5000 UNITS/ML VIAL SQ SCH ×3 (05:36→20:14)
[2016-11-16] MEDS: PERCOCET 5MG/325MG TAB PO PRN ×3 (05:37→20:15)
[2016-11-16 06:00] VITALS: BP 106/53
[2016-11-16 06:36] LABS: MEAN CORPUSCULAR HEMOGLOBIN 31.7 pg (27.0-33.0); MEAN CORPUSCULAR HGB CONC 31.4 g/dl (32.0-36.5); MEAN CORPUSCULAR VOLUME 100.9 fl (80.0-96.0); RED CELL DISTRIBUTION WIDTH 19.5 % (11.5-14.5); WHITE BLOOD COUNT 3.7 K/mm3 (4.0-10.0)
[2016-11-16 07:03] LABS: ALBUMIN 2.1 GM/DL (3.2-5.2); ALBUMIN/GLOBULIN RATIO 0.54 (1.00-1.93); BILIRUBIN,TOTAL 0.4 MG/DL (0.2-1.0); CALCIUM LEVEL 8.5 MG/DL (8.8-10.2); CREATININE FOR GFR 1.18 MG/DL (0.55-1.02); GLOMERULAR FILTRATION RATE 48.6 (>45); POTASSIUM SERUM 4.5 MEQ/L (3.5-5.1)
[2016-11-16] MEDS: ASPIRIN 81 MG ENTERIC TAB PO SCH (08:18)
[2016-11-16] MEDS: ATORVASTATIN 20 MG TAB PO SCH (08:18)
[2016-11-16] MEDS: IRON POLYSAC (NIFEREX) 150 MG CAP PO SCH ×2 (08:18→20:14)
[2016-11-16] MEDS: BICITRA 30ML SOLN UDC PO SCH (08:18)
[2016-11-16] MEDS: OMEPRAZOLE 20 MG CAP PO SCH (08:18)
[2016-11-16] MEDS: METOPROLOL TART 12.5 MG PER 1/2 TAB PO SCH ×2 (08:20→20:16)
[2016-11-16] MEDS: ISOSORBIDE MON. (IMDUR) 30 MG XR TAB PO SCH (08:21)
[2016-11-16] MEDS: DOCUSATE SODIUM 100 MG CAP PO SCH ×2 (08:22→20:15)
[2016-11-16] MEDS: MONTELUKAST 10 MG TAB PO SCH (08:23)
[2016-11-16] MEDS: GABAPENTIN 300 MG CAP PO SCH ×2 (08:23→20:15)
[2016-11-16] MEDS: NYSTATIN 100,000 UNITS/GM TOPICAL PWD 15 GM TOP SCH ×3 (08:25→20:16)
[2016-11-16] MEDS: MUPIROCIN 2% OINT 22 GM TUBE TOP SCH (08:27)
[2016-11-16] MEDS: CLOBETASOL PROP 0.05% OINT 30 GM TOP SCH (08:28)
[2016-11-16] MEDS: ESCITALOPRAM OXALATE 10 MG TAB (LEXAPRO) PO SCH (08:29)
[2016-11-16] MEDS: ADVAIR DISKUS 250/50 INH PWD INH SCH ×2 (11:31→20:02)
--- NOTE | 2016-11-16 14:18 | IPN ---
DATE: 11/16/2016 Patient seen and examined. No acute events overnight. Denies any chest pain, abdominal pain, nausea, vomiting, diarrhea, shortness of breath. Currently tolerating diet, in no acute distress. No acute events overnight. VITAL SIGNS: Temperature 97.8, pulse 57, respirations 18, blood pressure 106/53, pulse oximetry is 96% on room air. LABORATORY DATA: WBC 3.7, hemoglobin and hematocrit 9.3 over 29.7, platelets 135. Chemistry: Sodium 139, potassium 4.1, chloride 110, bicarbonate 23, BUN 37, creatinine 1.18. PHYSICAL EXAMINATION: GENERAL: Patient obese, in no acute distress, alert, comfortable. HEENT: Normocephalic, atraumatic. PULMONARY: Bilaterally clear to auscultation. CARDIAC: Regular rate and rhythm. Normal S1, S2. ABDOMEN: Soft, nontender, nondistended. Positive bowel sounds. EXTREMITIES: Chronic venous stasis changes, 1+ edema bilateral lower extremities. Venous stasis skin changes and ulcers. ASSESSMENT AND PLAN: This is a 66-year-old female patient with underlying medical history of hypertension, bilateral venous stasis ulcer, iron deficiency anemia, presented with generalized weakness, found to have acute renal failure and mild troponin elevation. Problems: 1. Acute kidney injury secondary to prerenal etiology. No signs of volume overload. Currently improved. Transferred from [place]. Creatinine in [place] was 2.9. Ultrasound appreciated. No evidence of hydronephrosis. Binder Technician has signed off. BUN and creatinine has returned to baseline. 2. Elevated troponin. History of coronary artery disease. Troponin has been resolving. Denies any chest pain. No symptoms. EKG showed T-wave inversions, aVL, V2 and V3, similar to previous. Continue aspirin, Lipitor, beta jing, isosorbide mononitrate. Echo shows LV systolic function with severe pulmonary artery hypertension. Cardiology consulted. Outpatient followup with cardiology recommended. 3. Status post hypotension. No symptoms. No chest pain. No lightheadedness. Currently, blood pressure medication dosage adjusted. Continue to monitor. 4. Metabolic acidosis, nonanion gap, resolved. 5. Macrocytic anemia. No evidence of bleeding. Anemia workup appreciated, which includes reticulocyte count, folate, B12, iron panel showing iron deficiency. Continue iron supplementation. 6. Recent history of urinary tract infection (UTI). No signs and symptoms. No leukocytosis. Withhold antibiotics for now. 7. History of hypertension. Metoprolol dosage decreased due to hypotension. 8. Dyslipidemia. Continue statin. 9. History of pulmonary embolism (PE). No current issues. 10. Venous stasis ulcers. Wound care as ordered. 11. Hypothyroidism. Continue levothyroxine. 12. Chronic obstructive pulmonary disease (COPD). Continue home medication Advair, Singulair, nebulizer treatment. 13. Peripheral neuropathy. Gabapentin. 14. History of gallstone. Ultrasound is appreciated. Continue to monitor. 15. Depression. Continue current medication. 16. Chronic back pain. Continue current medication. 17. Gastroesophageal reflux disease (GERD). Continue proton pump inhibitor (PPI). 18. Deep vein thrombosis (DVT) prophylaxis. Heparin subcutaneously. DISPOSITION: The patient will need 24/7 care, physical therapy.
[2016-11-16] MEDS ORDERED: HEPARIN SOD (PORCINE) 5000 UNITS/ML VIAL As Ordered ONE (20:10)
[2016-11-17] MEDS: PERCOCET 5MG/325MG TAB PO PRN ×3 (03:11→20:28)
[2016-11-17 06:00] VITALS: BP 135/63
[2016-11-17 06:15] LABS: MEAN CORPUSCULAR HEMOGLOBIN 31.8 pg (27.0-33.0); MEAN CORPUSCULAR HGB CONC 31.9 g/dl (32.0-36.5); MEAN CORPUSCULAR VOLUME 99.9 fl (80.0-96.0); RED CELL DISTRIBUTION WIDTH 19.1 % (11.5-14.5); WHITE BLOOD COUNT 4.1 K/mm3 (4.0-10.0)
[2016-11-17] MEDS: LEVOTHYROXINE 100MCG TABLET (0.1MG) PO SCH (06:18)
[2016-11-17] MEDS: HEPARIN SOD (PORCINE) 5000 UNITS/ML VIAL SQ SCH ×3 (06:19→20:29)
[2016-11-17 06:35] LABS: CREATININE FOR GFR 1.2 MG/DL (0.55-1.02); GLOMERULAR FILTRATION RATE 47.7 (>45); POTASSIUM SERUM 4.7 MEQ/L (3.5-5.1)
[2016-11-17] MEDS: ADVAIR DISKUS 250/50 INH PWD INH SCH ×2 (07:59→19:47)
[2016-11-17] MEDS: MONTELUKAST 10 MG TAB PO SCH (09:26)
[2016-11-17] MEDS: OMEPRAZOLE 20 MG CAP PO SCH (09:27)
[2016-11-17] MEDS: IRON POLYSAC (NIFEREX) 150 MG CAP PO SCH ×2 (09:27→20:29)
[2016-11-17] MEDS: ESCITALOPRAM OXALATE 10 MG TAB (LEXAPRO) PO SCH (09:27)
[2016-11-17] MEDS: ISOSORBIDE MON. (IMDUR) 30 MG XR TAB PO SCH (09:28)
[2016-11-17] MEDS: ASPIRIN 81 MG ENTERIC TAB PO SCH (09:29)
[2016-11-17] MEDS: DOCUSATE SODIUM 100 MG CAP PO SCH ×2 (09:29→20:29)
[2016-11-17] MEDS: GABAPENTIN 300 MG CAP PO SCH ×2 (09:29→20:29)
[2016-11-17] MEDS: CLOBETASOL PROP 0.05% OINT 30 GM TOP SCH (09:30)
[2016-11-17] MEDS: NYSTATIN 100,000 UNITS/GM TOPICAL PWD 15 GM TOP SCH ×3 (09:30→20:29)
[2016-11-17] MEDS: BICITRA 30ML SOLN UDC PO SCH (09:31)
[2016-11-17] MEDS: MUPIROCIN 2% OINT 22 GM TUBE TOP SCH (09:31)
[2016-11-17] MEDS: METOPROLOL TART 12.5 MG PER 1/2 TAB PO SCH ×2 (09:32→20:26)
[2016-11-17] MEDS: ATORVASTATIN 20 MG TAB PO SCH (09:34)
--- NOTE | 2016-11-17 13:25 | IPN ---
DATE: 11/17/2016 Patient seen and examined. No acute events overnight. Denies any chest pain, pressure or discomfort, abdominal pain, nausea, vomiting, diarrhea, shortness of breath. Currently tolerating diet, comfortable, in no acute distress. VITAL SIGNS: Temperature 97.8, pulse 61, respirations 16, blood pressure 132/64, pulse oximetry 98% on room air. LABORATORY DATA: WBC 4.1, hemoglobin and hematocrit 9.3/29.2. Platelets 134. Chemistry: Sodium 140, potassium 4.7, chloride 110, bicarbonate 24, BUN 37, creatinine 1.2. PHYSICAL EXAMINATION: GENERAL: Patient obese, in no acute distress, alert, comfortable. HEENT: Normocephalic, atraumatic. PULMONARY: Bilaterally clear to auscultation. Distant respirations. CARDIAC: Regular rate and rhythm. Normal S1, S2. ABDOMEN: Soft, nontender, positive bowel sounds. EXTREMITIES: Trace edema bilateral lower extremities. Venous stasis skin changes and venous stasis ulcers. ASSESSMENT AND PLAN: This is a 66-year-old female patient with underlying medical history of hypertension, bilateral venous stasis ulcers, iron deficiency, presented with generalized weakness, found to have acute renal failure and mild troponin elevation. Problems: 1. Acute kidney injury secondary to prerenal etiology. No signs of volume overload. Currently improved. The patient was initially transferred from [facility]. Creatinine at [place] was 2.9. Ultrasound appreciated. No evidence of hydronephrosis. Film Composer has signed off. BUN and creatinine returned to baseline. 2. Elevated troponin. History of coronary artery disease. Troponin elevation has resolved. Denies any chest pain, no symptoms. EKG showed T-wave inversions, aVL, V2, V3, similar to previous. Continue aspirin, statin, beta blockers, isosorbide mononitrate. Echo is appreciated. Cardiology consulted. Outpatient followup with cardiology. 3. Status post hypotension. No symptoms. No chest pain. No lightheadedness. Currently blood pressure medication dosage has been adjusted. Continue to monitor. 4. Metabolic acidosis, nonanion gap resolved. 5. Macrocytic anemia. No evidence of bleeding. Anemia workup appreciated, which includes reticulocyte count, folic acid, B12, iron panel, shows iron deficiency. Continue iron supplementation. 6. Recent history of urinary tract infection (UTI). No signs and symptoms. No leukocytosis. Withholding antibiotics. 7. History of hypertension. Metoprolol. 8. Dyslipidemia. Continue statin. 9. History of pulmonary embolism (PE). No current issues. 10. Venous stasis ulcers. Wound care as ordered. 11. Hypothyroidism. Continue levothyroxine. 12. Chronic obstructive pulmonary disease (COPD). Continue home medication - Advair, Singulair, nebulizer treatment. 13. Peripheral neuropathy. Continue Neurontin. 14. History of gallstones. Ultrasound appreciated. Continue to monitor. 15. Depression. Continue current medication. 16. Chronic back pain. Continue current medication. 17. Gastroesophageal reflux disease (GERD). Continue proton pump inhibitor (PPI). 18. Deep vein thrombosis (DVT) prophylaxis. Heparin subcutaneously. DISPOSITION PLANNING: The patient will need 24/7 care and physical therapy. Patient and family services (PFS) has been consulted.
[2016-11-17] MEDS ORDERED: HEPARIN SOD (PORCINE) 5000 UNITS/ML VIAL As Ordered ONE (20:22)
[2016-11-18] MEDS: PERCOCET 5MG/325MG TAB PO PRN ×3 (03:53→20:50)
[2016-11-18] MEDS: LEVOTHYROXINE 100MCG TABLET (0.1MG) PO SCH (05:39)
[2016-11-18] MEDS: HEPARIN SOD (PORCINE) 5000 UNITS/ML VIAL SQ SCH ×3 (05:40→20:49)
[2016-11-18 06:00] VITALS: BP 122/69
[2016-11-18 06:19] LABS: MEAN CORPUSCULAR HEMOGLOBIN 32.5 pg (27.0-33.0); MEAN CORPUSCULAR HGB CONC 32.1 g/dl (32.0-36.5); MEAN CORPUSCULAR VOLUME 101.1 fl (80.0-96.0)
[2016-11-18 06:33] LABS: CALCIUM LEVEL 8.9 MG/DL (8.8-10.2); CREATININE FOR GFR 1.21 MG/DL (0.55-1.02); GLOMERULAR FILTRATION RATE 47.2 (>45); MAGNESIUM LEVEL 1.8 MG/DL (1.8-2.4); POTASSIUM SERUM 4.9 MEQ/L (3.5-5.1)
[2016-11-18] MEDS: OMEPRAZOLE 20 MG CAP PO SCH (08:15)
[2016-11-18] MEDS: ATORVASTATIN 20 MG TAB PO SCH (08:15)
[2016-11-18] MEDS: GABAPENTIN 300 MG CAP PO SCH ×2 (08:15→20:50)
[2016-11-18] MEDS: ASPIRIN 81 MG ENTERIC TAB PO SCH (08:15)
[2016-11-18] MEDS: MONTELUKAST 10 MG TAB PO SCH (08:15)
[2016-11-18] MEDS: ESCITALOPRAM OXALATE 10 MG TAB (LEXAPRO) PO SCH (08:16)
[2016-11-18] MEDS: IRON POLYSAC (NIFEREX) 150 MG CAP PO SCH ×2 (08:17→20:50)
[2016-11-18] MEDS: ISOSORBIDE MON. (IMDUR) 30 MG XR TAB PO SCH (08:17)
[2016-11-18] MEDS: DOCUSATE SODIUM 100 MG CAP PO SCH ×2 (08:17→20:50)
[2016-11-18] MEDS: BICITRA 30ML SOLN UDC PO SCH (08:18)
[2016-11-18] MEDS: METOPROLOL TART 12.5 MG PER 1/2 TAB PO SCH ×2 (08:18→20:51)
[2016-11-18] MEDS: NYSTATIN 100,000 UNITS/GM TOPICAL PWD 15 GM TOP SCH ×3 (08:19→20:49)
[2016-11-18] MEDS: MUPIROCIN 2% OINT 22 GM TUBE TOP SCH (08:19)
[2016-11-18] MEDS: CLOBETASOL PROP 0.05% OINT 30 GM TOP SCH (08:19)
[2016-11-18] MEDS: ADVAIR DISKUS 250/50 INH PWD INH SCH ×2 (08:26→19:41)
--- NOTE | 2016-11-18 13:17 | IPN ---
DATE OF SERVICE: 11/18/2016 The patient seen and examined. No acute events overnight. Denies any chest pain, pressure, or discomfort. Reported her hearing aid is out of battery. Therefore, has hard of hearing. Denies any chest pain, abdominal pain, shortness of breath. The patient also continued to have problem ambulating with physical therapy. VITAL SIGNS: Temperature 97.1, pulse 70, respiration 20, blood pressure 122/69, pulse oximetry 95% on room air. LABORATORY: WBC 4, hemoglobin and hematocrit 9.1/28.4, platelets 133. Chemistry: Sodium 143, potassium 4.9, chloride 112, bicarbonate 26, BUN 36, creatinine 1.21. PHYSICAL EXAMINATION: GENERAL: The patient obese, in no acute distress, alert, comfortable. HEENT: Normocephalic, atraumatic. PULMONARY: Bilaterally clear to auscultation. Distant breath sounds. CARDIAC: Regular rate and rhythm. Normal S1, S2. ABDOMEN: Soft, nontender, positive bowel sounds. EXTREMITIES: Trace edema bilateral lower extremities. Venous stasis changes bilateral lower extremities with left venous stasis ulcers. Dressing clean, dry, and intact. ASSESSMENT AND PLAN: This is a 66-year-old female patient with underlying medical history of hypertension, bilateral venous stasis ulcers, iron deficiency, presented with hypertension, bilateral venous stasis with left lower extremity venous stasis ulcer, iron-deficiency anemia, presented with generalized weakness, found to have acute renal failure and mild troponin elevation. PROBLEMS: 1. Acute kidney injury secondary to prerenal etiology. Possibly also underlying chronic kidney disease stage III. No signs of volume overload. Currently improved. The patient was initially transferred from [facility]. Creatinine at [place] was 2.9. 2. (dictation cut off) symptoms. Electrocardiogram (EKG) showed T wave inversions, aVL, V2, and V3, similar to previous. Continue aspirin, statin, beta jing, isosorbide mononitrate. Echocardiogram appreciated. Cardiology consulted. Outpatient followup with cardiology. 3. Status post episode of hypotension with no symptoms. No chest pain. No lightheadedness. Currently, blood pressure medication has been adjusted. Currently, the patient on Imdur, Lopressor. 4. Metabolic acidosis, nonanion gap, resolved. 5. Macrocytic anemia. No evidence of bleeding. Anemia workup appreciated. Iron supplementation, given iron deficiency on workup. 6. History of urinary tract infection (UTI). No symptoms. No leukocytosis. Continue to monitor. 7. History of hypertension. Metoprolol and Imdur. 8. Dyslipidemia. Continue statin. 9. History of pulmonary embolism (PE). No current issues. 10. Venous stasis with venous stasis ulcers. Wound care as ordered. 11. Hypothyroidism. Continue levothyroxine. 12. Chronic obstructive pulmonary disease (COPD). Continue Advair, Singulair, nebulizer treatment. 13. Peripheral neuropathy. Continue Neurontin. 14. History of gallstones. Ultrasound appreciated. Continue to monitor. 15. Depression. Continue current medication. 16. Chronic back pain. Continue current medication. 17. Gastroesophageal reflux disease (GERD). Continue proton pump inhibitor (PPI). 18. Deep vein thrombosis (DVT) prophylaxis. Heparin subcutaneously. DISPOSITION PLANNING: The patient will need 24/7 care. Continue physical therapy. Patient and family services (PFS) consulted.
[2016-11-18] MEDS ORDERED: HEPARIN SOD (PORCINE) 5000 UNITS/ML VIAL As Ordered ONE (20:45)
[2016-11-19 06:00] VITALS: BP 103/53
[2016-11-19 06:09] LABS: MEAN CORPUSCULAR HEMOGLOBIN 31.9 pg (27.0-33.0); MEAN CORPUSCULAR HGB CONC 31.6 g/dl (32.0-36.5); MEAN CORPUSCULAR VOLUME 101.2 fl (80.0-96.0); RED CELL DISTRIBUTION WIDTH 18.8 % (11.5-14.5); WHITE BLOOD COUNT 4.2 K/mm3 (4.0-10.0)
[2016-11-19] MEDS: PERCOCET 5MG/325MG TAB PO PRN ×3 (06:15→20:48)
[2016-11-19] MEDS: LEVOTHYROXINE 100MCG TABLET (0.1MG) PO SCH (06:15)
[2016-11-19] MEDS: HEPARIN SOD (PORCINE) 5000 UNITS/ML VIAL SQ SCH ×3 (06:16→20:48)
[2016-11-19 06:27] LABS: CALCIUM LEVEL 9.1 MG/DL (8.8-10.2); CREATININE FOR GFR 1.1 MG/DL (0.55-1.02); GLOMERULAR FILTRATION RATE 52.7 (>45)
[2016-11-19] MEDS: ADVAIR DISKUS 250/50 INH PWD INH SCH ×3 (09:00→19:53)
[2016-11-19] MEDS: NYSTATIN 100,000 UNITS/GM TOPICAL PWD 15 GM TOP SCH ×3 (09:28→20:48)
[2016-11-19] MEDS: CLOBETASOL PROP 0.05% OINT 30 GM TOP SCH (09:28)
[2016-11-19] MEDS: ASPIRIN 81 MG ENTERIC TAB PO SCH (09:29)
[2016-11-19] MEDS: OMEPRAZOLE 20 MG CAP PO SCH (09:29)
[2016-11-19] MEDS: MONTELUKAST 10 MG TAB PO SCH (09:29)
[2016-11-19] MEDS: IRON POLYSAC (NIFEREX) 150 MG CAP PO SCH ×2 (09:29→20:47)
[2016-11-19] MEDS: BICITRA 30ML SOLN UDC PO SCH (09:29)
[2016-11-19] MEDS: GABAPENTIN 300 MG CAP PO SCH ×2 (09:29→20:47)
[2016-11-19] MEDS: MUPIROCIN 2% OINT 22 GM TUBE TOP SCH (09:29)
[2016-11-19] MEDS: ISOSORBIDE MON. (IMDUR) 30 MG XR TAB PO SCH (09:30)
[2016-11-19] MEDS: DOCUSATE SODIUM 100 MG CAP PO SCH ×2 (09:31→20:47)
[2016-11-19] MEDS: ATORVASTATIN 20 MG TAB PO SCH (09:31)
[2016-11-19] MEDS: ESCITALOPRAM OXALATE 10 MG TAB (LEXAPRO) PO SCH (09:32)
[2016-11-19] MEDS: METOPROLOL TART 12.5 MG PER 1/2 TAB PO SCH ×2 (09:33→20:39)
[2016-11-19] MEDS ORDERED: FUROSEMIDE 20 MG/2 ML VIAL (J1940) IV ONE (10:00)
[2016-11-19] MEDS ORDERED: FUROSEMIDE 40 MG TAB PO ONE (10:30)
[2016-11-19 14:00] VITALS: BP 105/59
--- NOTE | 2016-11-19 14:08 | IPN ---
DATE: 11/19/2016 Patient seen and examined. No acute events overnight. Denies any chest pain, pressure, or discomfort, shortness of breath. Tolerating diet. VITAL SIGNS: Temperature 97, pulse 61, respiration 16, blood pressure 109/55, pulse oximetry 97% on room air. LABORATORY: WBC 4.2, hemoglobin and hematocrit 9/28.6, platelets 149. Sodium 141, potassium 5, chloride 111, bicarbonate 24, BUN 35, creatinine 1.1. PHYSICAL EXAMINATION: GENERAL: Patient is obese, in no acute distress, comfortable. HEENT: Normocephalic, atraumatic. PULMONARY: Bilaterally clear to auscultation. Distant breath sounds. CARDIAC: Regular rate and rhythm. Normal S1, S2. ABDOMEN: Soft, nontender, positive bowel sounds. EXTREMITIES: 2+ edema bilateral lower extremities. Venous stasis skin changes. Left lower extremity venous stasis ulcer. Dressing clean, dry, and intact. ASSESSMENT AND PLAN: This is a 66-year-old female patient with underlying medical history of hypertension, bilateral venous stasis and iron deficiency, who presented with generalized weakness, found to have acute renal failure with mild elevation of Troponin. PROBLEMS: 1. Acute kidney injury secondary to prerenal etiology. Possibly underlying chronic kidney disease stage 3. No signs of volume overload. Currently improved. Patient initially transferred from [facility] with a creatinine of 2.9. 2. Troponin elevation in he setting of renal insufficiency. Patient does not have any symptoms. EKG shows T wave inversion, aVL, V2 and V3, similar to previous. Continue aspirin, statin, beta jing, isosorbide mononitrate. Echocardiogram is appreciated. Cardiology consulted. Outpatient followup with cardiology. 3. Status post episode hypotension with no symptoms. No chest pain. No lightheadedness. Currently, blood pressure medication has been adjusted. Patient on Imdur and Lopressor. 4. Metabolic acidosis, non anion gap, currently resolved. 5. Macrocytic anemia. No evidence of bleeding. Anemia workup appreciated. Iron supplementation, given iron deficiency on workup. 6. History of urinary tract infection (UTI). No symptoms. No leukocytosis. Continue to monitor. 7. History of hypertension. Continue metoprolol and Imdur. 8. Dyslipidemia. Continue statin. 9. History of pulmonary embolism (PE). No current issues. 10. Venous stasis with venous stasis ulcers. Wound care as ordered. 11. Hypothyroidism. Continue levothyroxine. 12. Chronic obstructive pulmonary disease (COPD). Continue Advair, Singulair, and nebulizer treatment. 13. Peripheral neuropathy. Continue Neurontin. 14. History of gallstones. Ultrasound appreciated. Continue to monitor. 15. Depression. Continue current medication. 16. Chronic back pain. Continue current medication. 17. Gastroesophageal reflux disease (GERD). Continue proton pump inhibitor (PPI). 18. Deep vein thrombosis (DVT) prophylaxis. Heparin subcutaneously. DISPOSITION PLANNING: The patient will need 24/ care pending physical therapy. Patient and family services (PFS) consulted.
[2016-11-19] MEDS ORDERED: HEPARIN SOD (PORCINE) 5000 UNITS/ML VIAL As Ordered ONE (20:42)
[2016-11-20] MEDS: ACETAMINOPHEN TAB 650MG DOSE (2X325MG) PO PRN ×2 (01:15→08:35)
[2016-11-20 06:00] VITALS: BP 133/64
[2016-11-20] MEDS: PERCOCET 5MG/325MG TAB PO PRN ×3 (06:20→20:39)
[2016-11-20] MEDS: LEVOTHYROXINE 100MCG TABLET (0.1MG) PO SCH (06:20)
[2016-11-20] MEDS: HEPARIN SOD (PORCINE) 5000 UNITS/ML VIAL SQ SCH ×3 (06:21→20:40)
[2016-11-20 07:11] LABS: MEAN CORPUSCULAR HEMOGLOBIN 32.5 pg (27.0-33.0); MEAN CORPUSCULAR HGB CONC 32.2 g/dl (32.0-36.5); MEAN CORPUSCULAR VOLUME 100.9 fl (80.0-96.0); RED CELL DISTRIBUTION WIDTH 18.4 % (11.5-14.5); WHITE BLOOD COUNT 3.9 K/mm3 (4.0-10.0)
[2016-11-20 07:24] LABS: CALCIUM LEVEL 8.9 MG/DL (8.8-10.2); CREATININE FOR GFR 1.16 MG/DL (0.55-1.02); GLOMERULAR FILTRATION RATE 49.6 (>45); MAGNESIUM LEVEL 1.8 MG/DL (1.8-2.4); POTASSIUM SERUM 4.5 MEQ/L (3.5-5.1)
[2016-11-20] MEDS: ADVAIR DISKUS 250/50 INH PWD INH SCH ×2 (08:13→20:14)
[2016-11-20] MEDS: BICITRA 30ML SOLN UDC PO SCH (08:35)
[2016-11-20] MEDS: METOPROLOL TART 12.5 MG PER 1/2 TAB PO SCH ×2 (08:36→20:38)
[2016-11-20] MEDS: OMEPRAZOLE 20 MG CAP PO SCH (08:36)
[2016-11-20] MEDS: MONTELUKAST 10 MG TAB PO SCH (08:37)
[2016-11-20] MEDS: DOCUSATE SODIUM 100 MG CAP PO SCH ×2 (08:37→20:39)
[2016-11-20] MEDS: ESCITALOPRAM OXALATE 10 MG TAB (LEXAPRO) PO SCH (08:37)
[2016-11-20] MEDS: IRON POLYSAC (NIFEREX) 150 MG CAP PO SCH ×2 (08:37→20:38)
[2016-11-20] MEDS: ASPIRIN 81 MG ENTERIC TAB PO SCH (08:37)
[2016-11-20] MEDS: GABAPENTIN 300 MG CAP PO SCH ×2 (08:37→20:38)
[2016-11-20] MEDS: ATORVASTATIN 20 MG TAB PO SCH (08:37)
[2016-11-20] MEDS: CLOBETASOL PROP 0.05% OINT 30 GM TOP SCH (08:38)
[2016-11-20] MEDS: NYSTATIN 100,000 UNITS/GM TOPICAL PWD 15 GM TOP SCH ×3 (08:38→20:40)
[2016-11-20] MEDS: MUPIROCIN 2% OINT 22 GM TUBE TOP SCH (08:39)
[2016-11-20] MEDS: ISOSORBIDE MON. (IMDUR) 30 MG XR TAB PO SCH (08:41)
--- NOTE | 2016-11-20 18:32 | IPN ---
DATE: 11/20/2016 SUBJECTIVE: The patient seen and examined. No acute events overnight. Denies any fever, chills, chest pain, pressure or discomfort. The patient wanted to be discharged from the hospital, is quite anxious. Tolerating diet. No acute events. VITAL SIGNS: Temperature 96.9, pulse 70, respirations 18, blood pressure 116/56, pulse oximetry 96% on room air. LABORATORY: WBC 3.9, hemoglobin and hematocrit 9/28.1, platelets 152. Chemistry: Sodium 144, potassium 4.5, chloride 110, bicarbonate 27, BUN 38, creatinine 1.16. PHYSICAL EXAMINATION: GENERAL: The patient alert, comfortable. In no acute distress. HEENT: Normocephalic, atraumatic. PULMONARY: Bilateral clear to auscultation. Distant breath sounds. CARDIAC: Regular rate and rhythm. Normal S1, S2. ABDOMEN: Soft, nontender, positive bowel sounds. EXTREMITIES: 2+ bilateral lower extremity edema with venous stasis skin changes and left lower extremity venous stasis ulcer. Dressing clean, dry and intact. ASSESSMENT AND PLAN: This is a 66-year-old female patient with underlying medical history of bilateral venous stasis, iron deficiency who presented with generalized weakness, found to have acute renal failure with mild elevation of troponin. PROBLEMS: 1. Acute kidney injury secondary to prerenal etiology, possibly underlying chronic kidney disease (CKD), stage III. No signs of volume overload. Currently improved, returned to baseline. The patient initially transferred from [facility] with a creatinine of 2.9. 2. Troponin elevation in the setting of renal insufficiency. The patient does not have any symptoms. EKG shows T wave inversion, AVL and V1, V2, similar to previous. Continue aspirin, statin, beta block, isosorbide mononitrate. Echocardiogram appreciated. Cardiology consulted. Outpatient followup with cardiology. 3. Status post episode of hypotension with no symptoms. No chest pain. No lightheadedness. Currently blood pressure is stable. Continue to monitor. 4. Metabolic acidosis. Anion gap currently resolved. 5. Microcytic anemia. No evidence of bleeding. Anemia workup appreciated. Iron supplementation for iron deficiency. 6. History of urinary tract infection (UTI). No symptoms. No leukocytosis. Continue to follow. 7. History of hypertension. Continue metoprolol and Imdur. 8. Dyslipidemia. Continue statin. 9. History of pulmonary embolism (PE). No active issue. 10. Venous stasis with venous stasis ulcer. Wound care is ordered. 11. Hypothyroidism. Continue levothyroxine. 12. Chronic obstructive pulmonary disease (COPD). Continue Advair, Singulair and nebulizer treatment. 13. Peripheral neuropathy. Continue Neurontin. 14. History of gallstone. Ultrasound appreciated. Continue to monitor. 15. Depression. Continue current medication. 16. Chronic back pain. Continue current medication. 17. Gastroesophageal reflux disease (GERD). Continue proton pump inhibitor (PPI). 18. Deep venous thrombosis (DVT) prophylaxis. Heparin subcutaneous. DISPOSITION PLANNING: The patient will need 24/ care pending physical therapy, Patient and Family Services (PFS).
[2016-11-20 20:32] VITALS: BP 111/56
[2016-11-20] MEDS ORDERED: HEPARIN SOD (PORCINE) 5000 UNITS/ML VIAL As Ordered ONE (20:33)
[2016-11-21] MEDS: PERCOCET 5MG/325MG TAB PO PRN ×3 (03:31→16:54)
[2016-11-21 06:00] VITALS: BP 123/59
[2016-11-21] MEDS: HEPARIN SOD (PORCINE) 5000 UNITS/ML VIAL SQ SCH ×3 (06:20→21:24)
[2016-11-21] MEDS: LEVOTHYROXINE 100MCG TABLET (0.1MG) PO SCH (06:20)
[2016-11-21 06:55] LABS: MEAN CORPUSCULAR HGB CONC 32.1 g/dl (32.0-36.5); MEAN CORPUSCULAR VOLUME 99.7 fl (80.0-96.0); RED CELL DISTRIBUTION WIDTH 18.5 % (11.5-14.5); WHITE BLOOD COUNT 3.5 K/mm3 (4.0-10.0)
[2016-11-21 06:57] LABS: CREATININE FOR GFR 1.14 MG/DL (0.55-1.02); GLOMERULAR FILTRATION RATE 50.6 (>45); MAGNESIUM LEVEL 1.9 MG/DL (1.8-2.4); POTASSIUM SERUM 4.5 MEQ/L (3.5-5.1)
[2016-11-21] MEDS: ADVAIR DISKUS 250/50 INH PWD INH SCH ×2 (07:42→20:12)
[2016-11-21] MEDS: ATORVASTATIN 20 MG TAB PO SCH (10:20)
[2016-11-21] MEDS: GABAPENTIN 300 MG CAP PO SCH ×2 (10:20→21:24)
[2016-11-21] MEDS: DOCUSATE SODIUM 100 MG CAP PO SCH ×2 (10:20→21:24)
[2016-11-21] MEDS: IRON POLYSAC (NIFEREX) 150 MG CAP PO SCH ×2 (10:21→21:25)
[2016-11-21] MEDS: OMEPRAZOLE 20 MG CAP PO SCH (10:21)
[2016-11-21] MEDS: MONTELUKAST 10 MG TAB PO SCH (10:21)
[2016-11-21] MEDS: METOPROLOL TART 12.5 MG PER 1/2 TAB PO SCH ×2 (10:22→21:21)
[2016-11-21] MEDS: NYSTATIN 100,000 UNITS/GM TOPICAL PWD 15 GM TOP SCH ×3 (10:23→21:25)
[2016-11-21] MEDS: BICITRA 30ML SOLN UDC PO SCH (10:23)
[2016-11-21] MEDS: ISOSORBIDE MON. (IMDUR) 30 MG XR TAB PO SCH (10:23)
[2016-11-21] MEDS: MUPIROCIN 2% OINT 22 GM TUBE TOP SCH (10:25)
[2016-11-21] MEDS: CLOBETASOL PROP 0.05% OINT 30 GM TOP SCH (10:25)
[2016-11-21] MEDS: ASPIRIN 81 MG ENTERIC TAB PO SCH (10:27)
[2016-11-21] MEDS: ESCITALOPRAM OXALATE 10 MG TAB (LEXAPRO) PO SCH (10:28)
[2016-11-22] MEDS: HEPARIN SOD (PORCINE) 5000 UNITS/ML VIAL SQ SCH ×3 (05:42→20:43)
[2016-11-22] MEDS: PERCOCET 5MG/325MG TAB PO PRN ×2 (05:42→15:05)
[2016-11-22] MEDS: LEVOTHYROXINE 100MCG TABLET (0.1MG) PO SCH (05:42)
[2016-11-22 05:50] VITALS: BP 146/67
[2016-11-22 07:07] LABS: MEAN CORPUSCULAR HGB CONC 31.8 g/dl (32.0-36.5); MEAN CORPUSCULAR VOLUME 100.6 fl (80.0-96.0); WHITE BLOOD COUNT 12.8 K/mm3 (4.0-10.0)
[2016-11-22 07:23] LABS: CREATININE FOR GFR 1.11 MG/DL (0.55-1.02); GLOMERULAR FILTRATION RATE 52.2 (>45); MAGNESIUM LEVEL 1.9 MG/DL (1.8-2.4); POTASSIUM SERUM 4.4 MEQ/L (3.5-5.1)
[2016-11-22] MEDS: ADVAIR DISKUS 250/50 INH PWD INH SCH ×2 (08:07→19:59)
[2016-11-22] MEDS: MONTELUKAST 10 MG TAB PO SCH (08:26)
[2016-11-22] MEDS: BICITRA 30ML SOLN UDC PO SCH (08:26)
[2016-11-22] MEDS: IRON POLYSAC (NIFEREX) 150 MG CAP PO SCH ×2 (08:26→20:41)
[2016-11-22] MEDS: OMEPRAZOLE 20 MG CAP PO SCH (08:26)
[2016-11-22] MEDS: ATORVASTATIN 20 MG TAB PO SCH (08:26)
[2016-11-22] MEDS: ISOSORBIDE MON. (IMDUR) 30 MG XR TAB PO SCH (08:27)
[2016-11-22] MEDS: METOPROLOL TART 12.5 MG PER 1/2 TAB PO SCH ×2 (08:27→20:41)
[2016-11-22] MEDS: GABAPENTIN 300 MG CAP PO SCH ×2 (08:27→20:42)
[2016-11-22] MEDS: ESCITALOPRAM OXALATE 10 MG TAB (LEXAPRO) PO SCH (08:27)
[2016-11-22] MEDS: DOCUSATE SODIUM 100 MG CAP PO SCH ×2 (08:27→20:41)
[2016-11-22] MEDS: ASPIRIN 81 MG ENTERIC TAB PO SCH (08:27)
[2016-11-22] MEDS: CLOBETASOL PROP 0.05% OINT 30 GM TOP SCH (08:28)
[2016-11-22] MEDS: NYSTATIN 100,000 UNITS/GM TOPICAL PWD 15 GM TOP SCH ×3 (08:28→20:43)
[2016-11-22] MEDS: MUPIROCIN 2% OINT 22 GM TUBE TOP SCH (08:28)
[2016-11-22 19:49] VITALS: BP 104/52
[2016-11-22] MEDS ORDERED: HEPARIN SOD (PORCINE) 5000 UNITS/ML VIAL As Ordered ONE (20:28)
[2016-11-22] MEDS: ACETAMINOPHEN TAB 650MG DOSE (2X325MG) PO PRN (20:41)
[2016-11-22 22:00] VITALS: BP 104/52
[2016-11-23 06:00] VITALS: BP 138/68
[2016-11-23 06:05] LABS: MEAN CORPUSCULAR HEMOGLOBIN 32.3 pg (27.0-33.0); MEAN CORPUSCULAR HGB CONC 32.4 g/dl (32.0-36.5); MEAN CORPUSCULAR VOLUME 99.8 fl (80.0-96.0); RED CELL DISTRIBUTION WIDTH 18.3 % (11.5-14.5); WHITE BLOOD COUNT 7.5 K/mm3 (4.0-10.0)
[2016-11-23] MEDS: LEVOTHYROXINE 100MCG TABLET (0.1MG) PO SCH (06:15)
[2016-11-23] MEDS: PERCOCET 5MG/325MG TAB PO PRN ×3 (06:15→22:03)
[2016-11-23] MEDS: HEPARIN SOD (PORCINE) 5000 UNITS/ML VIAL SQ SCH ×3 (06:15→22:04)
[2016-11-23 06:19] LABS: CALCIUM LEVEL 8.6 MG/DL (8.8-10.2); CREATININE FOR GFR 1.01 MG/DL (0.55-1.02); GLOMERULAR FILTRATION RATE 58.2 (>45); POTASSIUM SERUM 4.3 MEQ/L (3.5-5.1)
[2016-11-23] MEDS: ADVAIR DISKUS 250/50 INH PWD INH SCH ×2 (07:32→19:46)
[2016-11-23] MEDS: IRON POLYSAC (NIFEREX) 150 MG CAP PO SCH ×2 (08:48→22:03)
[2016-11-23] MEDS: OMEPRAZOLE 20 MG CAP PO SCH (08:49)
[2016-11-23] MEDS: BICITRA 30ML SOLN UDC PO SCH (08:49)
[2016-11-23] MEDS: ATORVASTATIN 20 MG TAB PO SCH (08:49)
[2016-11-23] MEDS: METOPROLOL TART 12.5 MG PER 1/2 TAB PO SCH ×2 (08:49→22:02)
[2016-11-23] MEDS: MONTELUKAST 10 MG TAB PO SCH (08:49)
[2016-11-23] MEDS: CLOBETASOL PROP 0.05% OINT 30 GM TOP SCH (08:50)
[2016-11-23] MEDS: MUPIROCIN 2% OINT 22 GM TUBE TOP SCH (08:50)
[2016-11-23] MEDS: ESCITALOPRAM OXALATE 10 MG TAB (LEXAPRO) PO SCH (08:51)
[2016-11-23] MEDS: NYSTATIN 100,000 UNITS/GM TOPICAL PWD 15 GM TOP SCH ×3 (08:51→22:04)
[2016-11-23] MEDS: DOCUSATE SODIUM 100 MG CAP PO SCH ×2 (08:51→22:02)
[2016-11-23] MEDS: ISOSORBIDE MON. (IMDUR) 30 MG XR TAB PO SCH (08:53)
[2016-11-23] MEDS: ASPIRIN 81 MG ENTERIC TAB PO SCH (08:53)
[2016-11-23] MEDS: GABAPENTIN 300 MG CAP PO SCH ×2 (08:53→22:03)
[2016-11-23] MEDS ORDERED: HEPARIN SOD (PORCINE) 5000 UNITS/ML VIAL As Ordered ONE (21:56)
--- NOTE | 2016-11-23 23:25 | IPNPDOC ---
Subjective Date Seen The patient was seen on 11/23/16. Subjective Chief Complaint/HPI The patient is a 66-year-old female admitted with a reason for visit of Acute Renal Failure, Elevated Troponin. Objective Physical Examination General Exam: Positive: Alert, No Acute Distress Eye Exam: Positive: PERRLA, Conjunctiva & lids normal, EOMI, Negative: Sclera icteric ENT Exam: Positive: Atraumatic, Mucous membr. moist/pink, Pharynx Normal Neck Exam: Positive: Supple, Negative: JVD, thyromegaly Chest Exam: Positive: Clear to auscultation, Normal air movement Heart Exam: Positive: Rate Normal, Regular Rhythm, Normal S1, Normal S2, Negative: Murmurs, Rubs Telemetry: Positive: No significant arrhythmia Abdomen Exam: Positive: Normal bowel sounds, Soft, Tenderness, Negative: Hepatospenomegaly Extremity Exam: Positive: Normal pulses, Tenderness, Swelling, Other (venous ulcers on both lower extremities), Negative: Clubbing, Cyanosis Skin Exam: Positive: Breakdown, Lesion Neuro Exam: Positive: Normal Speech, Cranial Nerves 3-12 NL, Reflexes 2+ Psych Exam: Positive: Mental status NL, Mood NL, Oriented x 3 Assessment /Plan Problems (1) Acute renal failure Status: Acute Problem Text: Creatinine 2.9. Follow-up creatinine. DC Flo Get renal ultrasound may get nephrology consult in the morning. By the day team if her creatinine does not improve remarkably. Get Bartholomew catheter. Check input and output. Check urine culture (2) Elevated troponin Status: Acute Problem Text: Troponin mildly elevated likely due to the high creatinine day. No chest pain, shortness of breath or palpitations, and ischemia highly unlikely . Check troponin and clinical research monitor (3) UTI (urinary tract infection) Problem Text: Leukocytosis in urine and started IV Cipro Plan/VTE VTE Prophylaxis Ordered?: Yes Plan/Urinary Catheter Urinary Catheter: Place Bartholomew Reason for insertion/continuin: Acute obstruct/retention Plan Diet: Continue Current Activity: Continue Current Diagnostics: Repeat Labs in AM Anticipated Discharge: Home 2300 called to see pt. for right sided pain and redness/swelling. Upon exam, was noted that pt had large nine inch by 11 inch area of erythema, firm, hot and very tender skin very painful to even follicular touch. pt states this began yesterday afternoon as a small rash but really began hurting her late this evening. Pt is not currently on abx. Area was not draining blood nor pus, no area of trauma in fact. Will order heating pad and u/s for am to evaluate for potential abscess vs cellulitis. -CK VS, I&O, 24H, Fishbone Vital Signs/I&O Vital Signs Date Time Temp Pulse Resp B/P (MAP) Pulse Ox O2 Delivery O2 Flow Rate FiO2 11/23/16 22:33 15 11/23/16 22:02 76 138/68 11/23/16 09:00 Room Air 11/23/16 06:00 98.6 94 I&O- Last 24 Hours up to 6 AM 11/23/16 06:00 Intake Total 1200 ml Output Total 825 ml Balance 375 ml Laboratory Data 24H LABS Laboratory Tests 2 11/23/16 05:46: Anion Gap 6L, Glomerular Filtration Rate 58.2, Blood Urea Nitrogen 33H, Creatinine 1.01, Sodium Level 141, Potassium Level 4.3, Chloride Level 109H, Carbon Dioxide Level 26, Calcium Level 8.6L, Magnesium Level 2.0, C-Reactive Protein, Quantitative 5.02H CBC/BMP Laboratory Tests 11/23/16 05:46 Red Blood Count 2.80 L, Mean Corpuscular Volume 99.8 H, Mean Corpuscular Hemoglobin 32.3, Mean Corpuscular Hemoglobin Concent 32.4, Red Cell Distribution Width 18.3 H, Calcium Level 8.6 L RADHA YEH DO Nov 23, 2016 23:25
[2016-11-24] MEDS: PERCOCET 5MG/325MG TAB PO PRN ×3 (05:34→20:54)
[2016-11-24 06:00] VITALS: BP 101/61
[2016-11-24 06:27] LABS: MEAN CORPUSCULAR HEMOGLOBIN 32.7 pg (27.0-33.0); MEAN CORPUSCULAR HGB CONC 32.8 g/dl (32.0-36.5); MEAN CORPUSCULAR VOLUME 99.6 fl (80.0-96.0); RED CELL DISTRIBUTION WIDTH 17.9 % (11.5-14.5); WHITE BLOOD COUNT 7.1 K/mm3 (4.0-10.0)
[2016-11-24] MEDS: LEVOTHYROXINE 100MCG TABLET (0.1MG) PO SCH (06:37)
[2016-11-24] MEDS: HEPARIN SOD (PORCINE) 5000 UNITS/ML VIAL SQ SCH ×3 (06:38→20:56)
[2016-11-24 06:55] LABS: CALCIUM LEVEL 8.8 MG/DL (8.8-10.2); CREATININE FOR GFR 1.06 MG/DL (0.55-1.02); MAGNESIUM LEVEL 1.9 MG/DL (1.8-2.4); POTASSIUM SERUM 4.2 MEQ/L (3.5-5.1)
[2016-11-24] MEDS: ADVAIR DISKUS 250/50 INH PWD INH SCH ×2 (08:03→19:48)
[2016-11-24] MEDS: NYSTATIN 100,000 UNITS/GM TOPICAL PWD 15 GM TOP SCH ×3 (10:22→20:56)
[2016-11-24] MEDS: MUPIROCIN 2% OINT 22 GM TUBE TOP SCH (10:22)
[2016-11-24] MEDS: CLOBETASOL PROP 0.05% OINT 30 GM TOP SCH (10:23)
[2016-11-24] MEDS: ATORVASTATIN 20 MG TAB PO SCH (10:23)
[2016-11-24] MEDS: ASPIRIN 81 MG ENTERIC TAB PO SCH (10:23)
[2016-11-24] MEDS: ESCITALOPRAM OXALATE 10 MG TAB (LEXAPRO) PO SCH (10:23)
[2016-11-24] MEDS: ISOSORBIDE MON. (IMDUR) 30 MG XR TAB PO SCH (10:24)
[2016-11-24] MEDS: GABAPENTIN 300 MG CAP PO SCH ×2 (10:24→20:54)
[2016-11-24] MEDS: METOPROLOL TART 12.5 MG PER 1/2 TAB PO SCH ×2 (10:24→20:55)
[2016-11-24] MEDS: MONTELUKAST 10 MG TAB PO SCH (10:25)
[2016-11-24] MEDS: IRON POLYSAC (NIFEREX) 150 MG CAP PO SCH ×2 (10:25→20:54)
[2016-11-24] MEDS: DOCUSATE SODIUM 100 MG CAP PO SCH ×2 (10:25→20:54)
[2016-11-24] MEDS: OMEPRAZOLE 20 MG CAP PO SCH (10:25)
[2016-11-24] MEDS: BICITRA 30ML SOLN UDC PO SCH (10:25)
--- NOTE | 2016-11-24 10:44 | REP ---
Clinical: Right-sided abdominal ascites and cellulitis. Rule out underlying collection/abscess Technique: Real time flanagan scale ultrasound examination using high frequency transducer. Findings: Ultrasound examination directed overlying the right abdomen and flank demonstrates significant subcutaneous edema without discrete localized collection/abscess. Impression: Significant subcutaneous edema. No discrete collection. Signed by Jeff Marrero MD 11/24/2016 10:36 A
[2016-11-24] MEDS: ACETAMINOPHEN TAB 650MG DOSE (2X325MG) PO PRN (18:18)
[2016-11-24] MEDS ORDERED: HEPARIN SOD (PORCINE) 5000 UNITS/ML VIAL As Ordered ONE (20:37)
[2016-11-25 06:00] VITALS: BP 102/63
[2016-11-25] MEDS: PERCOCET 5MG/325MG TAB PO PRN ×3 (06:01→20:38)
[2016-11-25] MEDS: LEVOTHYROXINE 100MCG TABLET (0.1MG) PO SCH (06:01)
[2016-11-25] MEDS: HEPARIN SOD (PORCINE) 5000 UNITS/ML VIAL SQ SCH ×2 (06:03→20:38)
[2016-11-25 06:12] LABS: CALCIUM LEVEL 8.5 MG/DL (8.8-10.2); CREATININE FOR GFR 1.04 MG/DL (0.55-1.02); GLOMERULAR FILTRATION RATE 56.3 (>45); POTASSIUM SERUM 4.5 MEQ/L (3.5-5.1)
[2016-11-25 06:14] LABS: MEAN CORPUSCULAR HEMOGLOBIN 32.6 pg (27.0-33.0); MEAN CORPUSCULAR HGB CONC 31.8 g/dl (32.0-36.5); MEAN CORPUSCULAR VOLUME 102.7 fl (80.0-96.0); RED CELL DISTRIBUTION WIDTH 17.9 % (11.5-14.5)
[2016-11-25] MEDS: ADVAIR DISKUS 250/50 INH PWD INH SCH ×2 (07:18→19:37)
[2016-11-25] MEDS: DOCUSATE SODIUM 100 MG CAP PO SCH ×2 (09:17→20:37)
[2016-11-25] MEDS: MONTELUKAST 10 MG TAB PO SCH (09:17)
[2016-11-25] MEDS: BICITRA 30ML SOLN UDC PO SCH (09:17)
[2016-11-25] MEDS: ATORVASTATIN 20 MG TAB PO SCH (09:17)
[2016-11-25] MEDS: METOPROLOL TART 12.5 MG PER 1/2 TAB PO SCH ×2 (09:18→20:39)
[2016-11-25] MEDS: OMEPRAZOLE 20 MG CAP PO SCH (09:18)
[2016-11-25] MEDS: IRON POLYSAC (NIFEREX) 150 MG CAP PO SCH ×2 (09:19→20:36)
[2016-11-25] MEDS: ESCITALOPRAM OXALATE 10 MG TAB (LEXAPRO) PO SCH (09:19)
[2016-11-25] MEDS: ASPIRIN 81 MG ENTERIC TAB PO SCH (09:19)
[2016-11-25] MEDS: GABAPENTIN 300 MG CAP PO SCH ×2 (09:19→20:37)
[2016-11-25] MEDS: ISOSORBIDE MON. (IMDUR) 30 MG XR TAB PO SCH (09:19)
[2016-11-25] MEDS: MUPIROCIN 2% OINT 22 GM TUBE TOP SCH (09:20)
[2016-11-25] MEDS: CLOBETASOL PROP 0.05% OINT 30 GM TOP SCH (09:20)
[2016-11-25] MEDS: NYSTATIN 100,000 UNITS/GM TOPICAL PWD 15 GM TOP SCH ×3 (09:20→20:39)
[2016-11-25] MEDS: DOXYCYCLINE HYCLATE 100 MG TAB PO SCH ×2 (10:22→20:37)
[2016-11-25] MEDS: LevoFLOXacin 500 MG TABLET PO SCH (10:22)
--- NOTE | 2016-11-25 19:51 | IPN ---
DATE: 11/25/2016 Patient seen and examined. No acute events overnight. Reported right-sided flank redness and swelling. Denies any chest pain, pressure or discomfort. No fever or chills. Mild temperature elevation over night. Tolerating diet. In no acute distress. VITAL SIGNS: Temperature 98.2, pulse 67, respirations 16, blood pressure 111/65, pulse oximetry 98% on room air. LABORATORY: WBC 5, hemoglobin and hematocrit 8.8/27.6, platelet 131. Chemistry: Sodium 142, potassium 4.5, chloride 109, bicarbonate 27, BUN 28, creatinine 1.04. PHYSICAL EXAMINATION: GENERAL: The patient alert, comfortable, in no acute distress. Obese. HEENT: Normocephalic, atraumatic. PULMONARY: Bilateral clear to auscultation. Distant breath sounds. CARDIAC: Regular rate and rhythm. Normal S1, S2. ABDOMEN: Soft, nontender. Right-sided abdomen with a patch of erythema and raised lesion. Mildly tender to palpation. EXTREMITIES: 2+ bilateral lower extremity edema. Venous stasis skin changes with left lower extremity venous stasis ulcers. Dressing clean, dry and intact. Ultrasound of the abdominal lesion shows significant subcutaneous edema with no discrete fluid collection. ASSESSMENT AND PLAN: This is a 66-year-old female patient with underlying medical history of bilateral venous stasis, iron deficiency anemia, bilateral lower extremity venous stasis, iron deficiency anemia presented with generalized weakness, found to have acute renal failure with mild elevation of troponin. PROBLEMS: 1. Acute renal failure, likely prerenal etiology. Possible underlying chronic kidney disease (CKD), stage III. No sign of volume overload. Currently returning to baseline. The patient was initially transferred from [facility] with creatinine of 2.9. 2. Troponin elevation in the setting of renal insufficiency. The patient does not have any symptoms. EKG shows T wave inversion, AVL, V1, V2 similar to previous. Continue aspirin, statin, beta jing. Isosorbide mononitrate. Echocardiogram appreciated. Cardiology initially consulted. Outpatient followup with cardiology recommended. 3. Right sided abdominal cellulitis. Ultrasound appreciated showing no abscess. Likely source right groin given morbid obesity with multiple skin sores, likely the source. Nystatin powder. Antibiotic, Levaquin and oxy. Followup C-reactive protein. Followup cultures. 4. Episodes of hypotension during the hospital stay. The patient asymptomatic with no lightheadedness, no chest pain. Will monitor blood pressure. 5. Metabolic acidosis, resolved. 6. Microcytic anemia. No evidence of bleeding. Anemia workup appreciated. Iron supplementation for iron deficiency. 7. History of urinary tract infection (UTI). No symptoms. No leukocytosis. Will continue to follow. 8. History of hypertension, metoprolol, Imdur. 9. Dyslipidemia. Continue statin. 10. History of pulmonary embolism (PE). No active issues. 11. Venous stasis with venous stasis ulcer. Wound care, leg elevation. The patient was diuresed during the hospital stay. 12. Hypothyroidism. Continue levothyroxine. 13. Chronic obstructive pulmonary disease (COPD). Continue Advair, Singulair, nebulizer treatment. 14. Peripheral neuropathy. Continue Neurontin. 15. History of gallstone. Ultrasound appreciated. Continue to monitor. 16. Depression. Continue current medication. 17. Chronic back pain. Continue current medication. 18. Gastroesophageal reflux disease (GERD). Continue proton pump inhibitor (PPI). 19. Deep venous thrombosis (DVT) prophylaxis, heparin subcutaneous DISPOSITION PLANNING: The patient will need 24/7 care. Physical therapy. Patient and Family Services (PFS). Followup C-reactive protein.
[2016-11-25 22:00] VITALS: BP 135/63
[2016-11-26 06:00] VITALS: BP 136/63
[2016-11-26] MEDS: LevoFLOXacin 500 MG TABLET PO SCH (06:00)
[2016-11-26] MEDS: LEVOTHYROXINE 100MCG TABLET (0.1MG) PO SCH (06:00)
[2016-11-26] MEDS: ACETAMINOPHEN TAB 650MG DOSE (2X325MG) PO PRN ×2 (06:01→20:11)
[2016-11-26] MEDS: ADVAIR DISKUS 250/50 INH PWD INH SCH ×2 (07:32→20:08)
[2016-11-26 07:46] LABS: ANION GAP 7 MEQ/L (8-16); BLOOD UREA NITROGEN 27 MG/DL (7-18); CALCIUM LEVEL 8.5 MG/DL (8.8-10.2); CARBON DIOXIDE LEVEL 25 MEQ/L (21-32); CHLORIDE LEVEL 108 MEQ/L (98-107); CREATININE FOR GFR 0.89 MG/DL (0.55-1.02); GLOMERULAR FILTRATION RATE > 60.0 (>45); GLUCOSE, FASTING 74 MG/DL (80-110); MAGNESIUM LEVEL 2.1 MG/DL (1.8-2.4); POTASSIUM SERUM 4.2 MEQ/L (3.5-5.1); SODIUM LEVEL 140 MEQ/L (136-145)
[2016-11-26 08:39] LABS: MEAN CORPUSCULAR HEMOGLOBIN 32.4 pg (27.0-33.0); MEAN CORPUSCULAR HGB CONC 31.6 g/dl (32.0-36.5); MEAN CORPUSCULAR VOLUME 102.6 fl (80.0-96.0); RED CELL DISTRIBUTION WIDTH 17.7 % (11.5-14.5); WHITE BLOOD COUNT 4.4 K/mm3 (4.0-10.0)
[2016-11-26] MEDS: DOCUSATE SODIUM 100 MG CAP PO SCH ×2 (09:22→20:12)
[2016-11-26] MEDS: GABAPENTIN 300 MG CAP PO SCH ×2 (09:22→20:12)
[2016-11-26] MEDS: METOPROLOL TART 12.5 MG PER 1/2 TAB PO SCH ×2 (09:22→20:12)
[2016-11-26] MEDS: ASPIRIN 81 MG ENTERIC TAB PO SCH (09:22)
[2016-11-26] MEDS: IRON POLYSAC (NIFEREX) 150 MG CAP PO SCH ×2 (09:22→20:11)
[2016-11-26] MEDS: OMEPRAZOLE 20 MG CAP PO SCH (09:23)
[2016-11-26] MEDS: MONTELUKAST 10 MG TAB PO SCH (09:23)
[2016-11-26] MEDS: ESCITALOPRAM OXALATE 10 MG TAB (LEXAPRO) PO SCH (09:23)
[2016-11-26] MEDS: DOXYCYCLINE HYCLATE 100 MG TAB PO SCH ×2 (09:23→20:11)
[2016-11-26] MEDS: ATORVASTATIN 20 MG TAB PO SCH (09:23)
[2016-11-26] MEDS: ISOSORBIDE MON. (IMDUR) 30 MG XR TAB PO SCH (09:24)
[2016-11-26] MEDS: NYSTATIN 100,000 UNITS/GM TOPICAL PWD 15 GM TOP SCH ×3 (09:24→20:11)
[2016-11-26] MEDS: BICITRA 30ML SOLN UDC PO SCH (09:24)
[2016-11-26] MEDS: HEPARIN SOD (PORCINE) 5000 UNITS/ML VIAL SQ SCH ×2 (09:24→20:13)
[2016-11-26] MEDS: MUPIROCIN 2% OINT 22 GM TUBE TOP SCH (09:25)
[2016-11-26] MEDS: CLOBETASOL PROP 0.05% OINT 30 GM TOP SCH (09:25)
[2016-11-26] MEDS: ONDANSETRON 4 MG ORAL DISINTEGRATING TAB (S0181) PO PRN (13:35)
[2016-11-26] MEDS: PERCOCET 5MG/325MG TAB PO PRN (13:35)
[2016-11-27] MEDS: PERCOCET 5MG/325MG TAB PO PRN ×3 (05:52→21:03)
[2016-11-27] MEDS: ONDANSETRON 4 MG ORAL DISINTEGRATING TAB (S0181) PO PRN (05:52)
[2016-11-27] MEDS: LevoFLOXacin 500 MG TABLET PO SCH (05:52)
[2016-11-27] MEDS: LEVOTHYROXINE 100MCG TABLET (0.1MG) PO SCH (05:52)
[2016-11-27 06:00] VITALS: BP 143/67
[2016-11-27 06:54] LABS: MEAN CORPUSCULAR HEMOGLOBIN 32.4 pg (27.0-33.0); MEAN CORPUSCULAR HGB CONC 31.4 g/dl (32.0-36.5); MEAN CORPUSCULAR VOLUME 103.1 fl (80.0-96.0); RED CELL DISTRIBUTION WIDTH 17.5 % (11.5-14.5); WHITE BLOOD COUNT 3.6 K/mm3 (4.0-10.0)
[2016-11-27 07:05] LABS: CALCIUM LEVEL 8.5 MG/DL (8.8-10.2); CREATININE FOR GFR 1.04 MG/DL (0.55-1.02); GLOMERULAR FILTRATION RATE 56.3 (>45); POTASSIUM SERUM 4.2 MEQ/L (3.5-5.1)
[2016-11-27] MEDS: ADVAIR DISKUS 250/50 INH PWD INH SCH ×2 (07:48→20:16)
[2016-11-27] MEDS: ATORVASTATIN 20 MG TAB PO SCH (08:43)
[2016-11-27] MEDS: DOCUSATE SODIUM 100 MG CAP PO SCH ×2 (08:43→20:10)
[2016-11-27] MEDS: MONTELUKAST 10 MG TAB PO SCH (08:43)
[2016-11-27] MEDS: OMEPRAZOLE 20 MG CAP PO SCH (08:43)
[2016-11-27] MEDS: DOXYCYCLINE HYCLATE 100 MG TAB PO SCH ×2 (08:44→20:10)
[2016-11-27] MEDS: METOPROLOL TART 12.5 MG PER 1/2 TAB PO SCH ×2 (08:44→20:10)
[2016-11-27] MEDS: ESCITALOPRAM OXALATE 10 MG TAB (LEXAPRO) PO SCH (08:45)
[2016-11-27] MEDS: ASPIRIN 81 MG ENTERIC TAB PO SCH (08:45)
[2016-11-27] MEDS: ISOSORBIDE MON. (IMDUR) 30 MG XR TAB PO SCH (08:45)
[2016-11-27] MEDS: GABAPENTIN 300 MG CAP PO SCH ×2 (08:45→20:10)
[2016-11-27] MEDS: IRON POLYSAC (NIFEREX) 150 MG CAP PO SCH ×2 (08:45→20:10)
[2016-11-27] MEDS: NYSTATIN 100,000 UNITS/GM TOPICAL PWD 15 GM TOP SCH ×3 (08:46→20:11)
[2016-11-27] MEDS: BICITRA 30ML SOLN UDC PO SCH (08:47)
[2016-11-27] MEDS: HEPARIN SOD (PORCINE) 5000 UNITS/ML VIAL SQ SCH ×2 (08:47→20:10)
[2016-11-27] MEDS: MUPIROCIN 2% OINT 22 GM TUBE TOP SCH (08:49)
[2016-11-27] MEDS: CLOBETASOL PROP 0.05% OINT 30 GM TOP SCH (08:50)
[2016-11-28] MEDS: LevoFLOXacin 500 MG TABLET PO SCH (05:38)
[2016-11-28] MEDS: LEVOTHYROXINE 100MCG TABLET (0.1MG) PO SCH (05:38)
[2016-11-28] MEDS: PERCOCET 5MG/325MG TAB PO PRN ×2 (05:39→15:56)
[2016-11-28 06:00] VITALS: BP 138/60
[2016-11-28 07:23] LABS: MEAN CORPUSCULAR HEMOGLOBIN 32.5 pg (27.0-33.0); MEAN CORPUSCULAR VOLUME 101.7 fl (80.0-96.0); WHITE BLOOD COUNT 3.4 K/mm3 (4.0-10.0)
[2016-11-28] MEDS: ADVAIR DISKUS 250/50 INH PWD INH SCH ×2 (07:32→19:47)
[2016-11-28 07:35] LABS: CALCIUM LEVEL 8.4 MG/DL (8.8-10.2); CREATININE FOR GFR 1.08 MG/DL (0.55-1.02); GLOMERULAR FILTRATION RATE 53.9 (>45)
[2016-11-28] MEDS: ATORVASTATIN 20 MG TAB PO SCH (09:50)
[2016-11-28] MEDS: DOCUSATE SODIUM 100 MG CAP PO SCH ×2 (09:50→20:48)
[2016-11-28] MEDS: MONTELUKAST 10 MG TAB PO SCH (09:51)
[2016-11-28] MEDS: ESCITALOPRAM OXALATE 10 MG TAB (LEXAPRO) PO SCH (09:51)
[2016-11-28] MEDS: METOPROLOL TART 12.5 MG PER 1/2 TAB PO SCH ×2 (09:51→20:47)
[2016-11-28] MEDS: ASPIRIN 81 MG ENTERIC TAB PO SCH (09:52)
[2016-11-28] MEDS: IRON POLYSAC (NIFEREX) 150 MG CAP PO SCH ×2 (09:52→20:47)
[2016-11-28] MEDS: GABAPENTIN 300 MG CAP PO SCH ×2 (09:52→20:47)
[2016-11-28] MEDS: OMEPRAZOLE 20 MG CAP PO SCH (09:52)
[2016-11-28] MEDS: ISOSORBIDE MON. (IMDUR) 30 MG XR TAB PO SCH (09:52)
[2016-11-28] MEDS: NYSTATIN 100,000 UNITS/GM TOPICAL PWD 15 GM TOP SCH ×3 (09:53→20:48)
[2016-11-28] MEDS: BICITRA 30ML SOLN UDC PO SCH (09:53)
[2016-11-28] MEDS: DOXYCYCLINE HYCLATE 100 MG TAB PO SCH ×2 (09:53→20:47)
[2016-11-28] MEDS: MUPIROCIN 2% OINT 22 GM TUBE TOP SCH (09:54)
[2016-11-28] MEDS: CLOBETASOL PROP 0.05% OINT 30 GM TOP SCH (09:55)
[2016-11-28] MEDS: HEPARIN SOD (PORCINE) 5000 UNITS/ML VIAL SQ SCH ×2 (09:56→20:46)
[2016-11-29] MEDS: LEVOTHYROXINE 100MCG TABLET (0.1MG) PO SCH (05:42)
[2016-11-29] MEDS: LevoFLOXacin 500 MG TABLET PO SCH (05:42)
[2016-11-29] MEDS: PERCOCET 5MG/325MG TAB PO PRN ×3 (05:42→20:37)
[2016-11-29 06:00] VITALS: BP 108/76
[2016-11-29 06:40] LABS: MEAN CORPUSCULAR HEMOGLOBIN 32.5 pg (27.0-33.0); MEAN CORPUSCULAR HGB CONC 31.6 g/dl (32.0-36.5); MEAN CORPUSCULAR VOLUME 102.8 fl (80.0-96.0); RED CELL DISTRIBUTION WIDTH 17.3 % (11.5-14.5); WHITE BLOOD COUNT 3.4 K/mm3 (4.0-10.0)
[2016-11-29 07:01] LABS: CALCIUM LEVEL 8.6 MG/DL (8.8-10.2); CREATININE FOR GFR 1.13 MG/DL (0.55-1.02); GLOMERULAR FILTRATION RATE 51.1 (>45); MAGNESIUM LEVEL 1.9 MG/DL (1.8-2.4); POTASSIUM SERUM 4.1 MEQ/L (3.5-5.1)
[2016-11-29] MEDS: ADVAIR DISKUS 250/50 INH PWD INH SCH ×2 (07:54→19:19)
[2016-11-29] MEDS: OMEPRAZOLE 20 MG CAP PO SCH (09:15)
[2016-11-29] MEDS: ASPIRIN 81 MG ENTERIC TAB PO SCH (09:15)
[2016-11-29] MEDS: MONTELUKAST 10 MG TAB PO SCH (09:15)
[2016-11-29] MEDS: IRON POLYSAC (NIFEREX) 150 MG CAP PO SCH ×2 (09:15→20:35)
[2016-11-29] MEDS: METOPROLOL TART 12.5 MG PER 1/2 TAB PO SCH ×2 (09:15→20:37)
[2016-11-29] MEDS: DOXYCYCLINE HYCLATE 100 MG TAB PO SCH ×2 (09:15→20:35)
[2016-11-29] MEDS: ATORVASTATIN 20 MG TAB PO SCH (09:15)
[2016-11-29] MEDS: ESCITALOPRAM OXALATE 10 MG TAB (LEXAPRO) PO SCH (09:15)
[2016-11-29] MEDS: DOCUSATE SODIUM 100 MG CAP PO SCH ×2 (09:16→20:36)
[2016-11-29] MEDS: GABAPENTIN 300 MG CAP PO SCH ×2 (09:16→20:37)
[2016-11-29] MEDS: ISOSORBIDE MON. (IMDUR) 30 MG XR TAB PO SCH (09:16)
[2016-11-29] MEDS: HEPARIN SOD (PORCINE) 5000 UNITS/ML VIAL SQ SCH ×2 (09:18→20:35)
[2016-11-29] MEDS: BICITRA 30ML SOLN UDC PO SCH (09:18)
[2016-11-29] MEDS: NYSTATIN 100,000 UNITS/GM TOPICAL PWD 15 GM TOP SCH ×3 (09:19→20:38)
[2016-11-29] MEDS: CLOBETASOL PROP 0.05% OINT 30 GM TOP SCH (09:20)
[2016-11-29] MEDS: MUPIROCIN 2% OINT 22 GM TUBE TOP SCH (09:20)
[2016-11-29] MEDS: ONDANSETRON 4 MG ORAL DISINTEGRATING TAB (S0181) PO PRN (12:57)
[2016-11-29 22:00] VITALS: BP 91/44
[2016-11-30 06:00] VITALS: BP 116/53
[2016-11-30 06:06] LABS: MEAN CORPUSCULAR HEMOGLOBIN 32.3 pg (27.0-33.0); MEAN CORPUSCULAR HGB CONC 31.7 g/dl (32.0-36.5); MEAN CORPUSCULAR VOLUME 102.1 fl (80.0-96.0); RED CELL DISTRIBUTION WIDTH 17.3 % (11.5-14.5); WHITE BLOOD COUNT 3.3 K/mm3 (4.0-10.0)
[2016-11-30 06:14] LABS: CALCIUM LEVEL 8.6 MG/DL (8.8-10.2); CREATININE FOR GFR 1.08 MG/DL (0.55-1.02); GLOMERULAR FILTRATION RATE 53.9 (>45); POTASSIUM SERUM 3.8 MEQ/L (3.5-5.1)
[2016-11-30] MEDS: LEVOTHYROXINE 100MCG TABLET (0.1MG) PO SCH (06:34)
[2016-11-30] MEDS: LevoFLOXacin 500 MG TABLET PO SCH (06:34)
[2016-11-30] MEDS: PERCOCET 5MG/325MG TAB PO PRN ×3 (06:39→21:37)
[2016-11-30] MEDS: ADVAIR DISKUS 250/50 INH PWD INH SCH ×2 (08:01→20:37)
[2016-11-30] MEDS: ESCITALOPRAM OXALATE 10 MG TAB (LEXAPRO) PO SCH (09:44)
[2016-11-30] MEDS: OMEPRAZOLE 20 MG CAP PO SCH (09:44)
[2016-11-30] MEDS: MONTELUKAST 10 MG TAB PO SCH (09:48)
[2016-11-30] MEDS: METOPROLOL TART 12.5 MG PER 1/2 TAB PO SCH ×2 (09:48→19:41)
[2016-11-30] MEDS: DOXYCYCLINE HYCLATE 100 MG TAB PO SCH ×2 (09:48→21:13)
[2016-11-30] MEDS: IRON POLYSAC (NIFEREX) 150 MG CAP PO SCH ×2 (09:48→21:13)
[2016-11-30] MEDS: DOCUSATE SODIUM 100 MG CAP PO SCH ×3 (09:48→21:13)
[2016-11-30] MEDS: ATORVASTATIN 20 MG TAB PO SCH (09:48)
[2016-11-30] MEDS: ASPIRIN 81 MG ENTERIC TAB PO SCH (09:49)
[2016-11-30] MEDS: HEPARIN SOD (PORCINE) 5000 UNITS/ML VIAL SQ SCH ×2 (09:49→21:13)
[2016-11-30] MEDS: ISOSORBIDE MON. (IMDUR) 30 MG XR TAB PO SCH (09:49)
[2016-11-30] MEDS: GABAPENTIN 300 MG CAP PO SCH ×2 (09:49→21:13)
[2016-11-30] MEDS: MUPIROCIN 2% OINT 22 GM TUBE TOP SCH (09:50)
[2016-11-30] MEDS: NYSTATIN 100,000 UNITS/GM TOPICAL PWD 15 GM TOP SCH ×3 (09:50→21:13)
[2016-11-30] MEDS: CLOBETASOL PROP 0.05% OINT 30 GM TOP SCH (09:50)
[2016-11-30] MEDS: BICITRA 30ML SOLN UDC PO SCH (09:55)
[2016-11-30 19:59] VITALS: BP 96/55
[2016-12-01] MEDS: LevoFLOXacin 500 MG TABLET PO SCH (05:56)
[2016-12-01] MEDS: PERCOCET 5MG/325MG TAB PO PRN ×2 (05:57→16:13)
[2016-12-01] MEDS: LEVOTHYROXINE 100MCG TABLET (0.1MG) PO SCH (05:57)
[2016-12-01 06:00] VITALS: BP 127/59
[2016-12-01] MEDS ORDERED: ADVAIR HFA 115/21MCG INHALER INH SCH (07:05)
[2016-12-01] MEDS: ONDANSETRON 4 MG ORAL DISINTEGRATING TAB (S0181) PO PRN (07:33)
[2016-12-01 07:37] LABS: RETIC HEMOGLOBIN CONTENT CHr 33.5 PG (24-36); RETICULOCYTE ABSOLUTE ADVIA212 34 x10(9)/L (17-77)
[2016-12-01 07:39] LABS: REASON FOR REVIEW COMPREHENSIVE REVIEW
[2016-12-01] MEDS: ADVAIR HFA 115/21MCG INHALER INH SCH ×2 (07:49→20:07)
[2016-12-01] MEDS: ATORVASTATIN 20 MG TAB PO SCH (09:02)
[2016-12-01] MEDS: ASPIRIN 81 MG ENTERIC TAB PO SCH (09:02)
[2016-12-01] MEDS: MONTELUKAST 10 MG TAB PO SCH (09:03)
[2016-12-01] MEDS: HEPARIN SOD (PORCINE) 5000 UNITS/ML VIAL SQ SCH ×2 (09:03→20:29)
[2016-12-01] MEDS: OMEPRAZOLE 20 MG CAP PO SCH (09:03)
[2016-12-01] MEDS: GABAPENTIN 300 MG CAP PO SCH ×2 (09:04→20:28)
[2016-12-01] MEDS: ISOSORBIDE MON. (IMDUR) 30 MG XR TAB PO SCH (09:04)
[2016-12-01] MEDS: DOCUSATE SODIUM 100 MG CAP PO SCH ×2 (09:04→20:29)
[2016-12-01] MEDS: NYSTATIN 100,000 UNITS/GM TOPICAL PWD 15 GM TOP SCH ×3 (09:05→20:29)
[2016-12-01] MEDS: ESCITALOPRAM OXALATE 10 MG TAB (LEXAPRO) PO SCH (09:05)
[2016-12-01] MEDS: DOXYCYCLINE HYCLATE 100 MG TAB PO SCH ×2 (09:05→20:29)
[2016-12-01] MEDS: CLOBETASOL PROP 0.05% OINT 30 GM TOP SCH (09:06)
[2016-12-01] MEDS: METOPROLOL TART 12.5 MG PER 1/2 TAB PO SCH ×2 (09:06→20:25)
[2016-12-01] MEDS: MUPIROCIN 2% OINT 22 GM TUBE TOP SCH (09:07)
[2016-12-01] MEDS: IRON POLYSAC (NIFEREX) 150 MG CAP PO SCH ×2 (09:12→20:29)
[2016-12-01] MEDS: BICITRA 30ML SOLN UDC PO SCH (09:12)
[2016-12-02] MEDS: PERCOCET 5MG/325MG TAB PO PRN ×4 (00:04→23:53)
[2016-12-02] MEDS: LEVOTHYROXINE 100MCG TABLET (0.1MG) PO SCH (06:03)
[2016-12-02] MEDS: LevoFLOXacin 500 MG TABLET PO SCH (06:03)
[2016-12-02 06:20] LABS: BASO % 0.3 % (0.0-1.0); EOS # 0.2 K/mm3 (0.0-0.50); EOS % 3.7 % (0.0-3.0); LARGE UNSTAINED CELL # 0.1 K/mm3 (0.0-0.4); LARGE UNSTAINED CELL % 2.9 % (0.0-4.0); LYMPH % 23.6 % (24.0-44.0); MEAN CORPUSCULAR HEMOGLOBIN 32.1 pg (27.0-33.0); MEAN CORPUSCULAR HGB CONC 31.3 g/dl (32.0-36.5); MEAN CORPUSCULAR VOLUME 102.4 fl (80.0-96.0); MONO # 0.3 K/mm3 (0.0-0.8); MONO % 6.9 % (0.0-5.0); NEUTROPHILS # 2.6 K/mm3 (1.8-7.7); NEUTROPHILS % 62.7 % (36.0-66.0); PLATELET COUNT, AUTOMATED 153 k/mm3 (150-450); RED CELL DISTRIBUTION WIDTH 17.1 % (11.5-14.5); WHITE BLOOD COUNT 4.2 K/mm3 (4.0-10.0)
[2016-12-02 06:33] LABS: CALCIUM LEVEL 8.8 MG/DL (8.8-10.2); CREATININE FOR GFR 1.27 MG/DL (0.55-1.02); GLOMERULAR FILTRATION RATE 44.7 (>45); POTASSIUM SERUM 3.8 MEQ/L (3.5-5.1)
[2016-12-02 06:47] VITALS: BP 92/54
[2016-12-02] MEDS: ADVAIR HFA 115/21MCG INHALER INH SCH ×2 (08:16→20:16)
[2016-12-02] MEDS: METOPROLOL TART 12.5 MG PER 1/2 TAB PO SCH (09:00)
[2016-12-02] MEDS: ISOSORBIDE MON. (IMDUR) 30 MG XR TAB PO SCH (09:00)
[2016-12-02] MEDS: ATORVASTATIN 20 MG TAB PO SCH (09:27)
[2016-12-02] MEDS: GABAPENTIN 300 MG CAP PO SCH ×2 (09:27→20:52)
[2016-12-02] MEDS: OMEPRAZOLE 20 MG CAP PO SCH (09:28)
[2016-12-02] MEDS: MONTELUKAST 10 MG TAB PO SCH (09:28)
[2016-12-02] MEDS: IRON POLYSAC (NIFEREX) 150 MG CAP PO SCH ×2 (09:28→20:52)
[2016-12-02] MEDS: ASPIRIN 81 MG ENTERIC TAB PO SCH (09:28)
[2016-12-02] MEDS: DOXYCYCLINE HYCLATE 100 MG TAB PO SCH ×2 (09:28→20:52)
[2016-12-02] MEDS: ESCITALOPRAM OXALATE 10 MG TAB (LEXAPRO) PO SCH (09:29)
[2016-12-02] MEDS: HEPARIN SOD (PORCINE) 5000 UNITS/ML VIAL SQ SCH ×2 (09:31→20:52)
[2016-12-02] MEDS: BICITRA 30ML SOLN UDC PO SCH (09:31)
[2016-12-02] MEDS: NYSTATIN 100,000 UNITS/GM TOPICAL PWD 15 GM TOP SCH ×3 (09:32→20:53)
[2016-12-02] MEDS: MUPIROCIN 2% OINT 22 GM TUBE TOP SCH (09:33)
[2016-12-02] MEDS: CLOBETASOL PROP 0.05% OINT 30 GM TOP SCH (09:34)
[2016-12-02] MEDS: DOCUSATE SODIUM 100 MG CAP PO SCH ×2 (09:41→20:52)
[2016-12-02] MEDS: ONDANSETRON 4 MG ORAL DISINTEGRATING TAB (S0181) PO PRN (12:55)
[2016-12-02] MEDS: METOPROLOL TART 25 MG TABLET PO SCH (20:53)
--- NOTE | 2016-12-03 04:10 | IPN ---
DATE OF SERVICE: 12/02/2016 Patient seen and examined at the bedside. Chart has been reviewed. Patient has no new complaints; however, per nursing, she has been refusing to work with physical therapy and has been bed-bound for the entire week. She continues to have some erythema and minimal pain on the right flank, right upper quadrant, and right lower quadrant abdomen. No nausea or vomiting. Tolerating her diet well. Afebrile. Temperature 97.4, pulse 71, respiratory rate 16, blood pressure 92/54, 95% on room air. GENERALLY: Patient is awake, alert, oriented times three, answering questions appropriately. No jugular venous distention. No thyromegaly. Speaks in full sentences. LUNGS: Are clear to auscultation. Distant breath sounds. HEART: S1, S2, sinus rhythm. ABDOMEN: Is soft. Right abdomen has erythema, raised, palpable, mildly tender lesions. No rebound, guarding. EXTREMITIES: 2+ pitting edema. Venous stasis changes and ulcers. Dressings appear clean, dry, and intact. LABORATORY DATA: Reviewed. Ultrasound abdomen No discrete fluid collection or abscess. ASSESSMENT AND PLAN: This is a 66-year-old female with a history of bilateral venous stasis ulcers, iron deficiency anemia, bilateral lower extremity venous insufficiency, iron deficiency anemia, presented with generalized weakness with acute on chronic renal failure, mild elevation of troponins said to be felt secondary to renal failure, treated for right-sided abdominal cellulitis. CURRENT ISSUES: 1. Acute renal failure secondary to dehydration on chronic kidney disease stage III. Patient's creatinine is stable. Monitor intake and output (I and O). Avoid nephrotoxins, and renally dose all medications. 2. Right-sided abdominal cellulitis. Ultrasound shows no abscess. Nystatin powder, antibiotics, Levaquin, and doxycycline. Improving. Complete a full course. 3. Troponin elevation in the setting of renal insufficiency. No symptoms. EKG shows T-wave inversion similar to previous. On aspirin, statins, beta- blockade, isosorbide. Echocardiogram appreciated. Cardiology appreciated. Outpatient followup with cardiology recommended. 4. Episodes of hypotension, asymptomatic. No lightheadedness, chest pain, shortness of breath. 5. Metabolic acidosis, resolved. 6. Microcytic anemia. No evidence of active bleeding. Iron supplementation for iron deficiency. 7. History of urinary tract infection (UTI). Currently no symptoms. 8. Leukocytosis. 9. History of hypertension. Metoprolol, Imdur held due to low blood pressure. 10. Dyslipidemia. Continue statin. 11. History of pulmonary embolism (PE). No active issues. 12. Venous stasis ulcers. Wound care. Leg elevation. Patient's blood pressure is too low to restarted on Lasix. 13. Hypothyroidism. Levothyroxine. 14. Chronic obstructive pulmonary disease (COPD). On Advair, Singulair, and nebulizer. 15. Peripheral neuropathy. On Neurontin. 16. History of gallstones. Ultrasound appreciated. Continue to monitor for ongoing symptoms. Currently asymptomatic. 17. Depression. Continue home medication. 18. Chronic back pain. Continue on pain medication. 19. Reflux. On proton pump inhibitor (PPI). 20. Deep venous thrombosis (DVT) prophylaxis. Subcutaneous heparin. DISPOSITION: Patient has been refusing to work with physical therapy. Has been bed-bound all week. Defer to patient and family services (PFS) for placement. [facility]ES HOSPITALBrenna
[2016-12-03] MEDS: LEVOTHYROXINE 100MCG TABLET (0.1MG) PO SCH (06:24)
[2016-12-03] MEDS: ONDANSETRON 4 MG ORAL DISINTEGRATING TAB (S0181) PO PRN (06:24)
[2016-12-03] MEDS: LevoFLOXacin 500 MG TABLET PO SCH (06:24)
[2016-12-03] MEDS: PERCOCET 5MG/325MG TAB PO PRN ×3 (06:25→20:14)
[2016-12-03] MEDS: ADVAIR HFA 115/21MCG INHALER INH SCH ×2 (07:04→19:08)
[2016-12-03] MEDS: METOPROLOL TART 25 MG TABLET PO SCH ×2 (09:00→19:55)
[2016-12-03] MEDS: ISOSORBIDE MON. (IMDUR) 30 MG XR TAB PO SCH (09:00)
[2016-12-03] MEDS: ASPIRIN 81 MG ENTERIC TAB PO SCH (09:14)
[2016-12-03] MEDS: DOXYCYCLINE HYCLATE 100 MG TAB PO SCH ×2 (09:15→20:14)
[2016-12-03] MEDS: IRON POLYSAC (NIFEREX) 150 MG CAP PO SCH ×2 (09:15→20:13)
[2016-12-03] MEDS: ATORVASTATIN 20 MG TAB PO SCH (09:16)
[2016-12-03] MEDS: MONTELUKAST 10 MG TAB PO SCH (09:16)
[2016-12-03] MEDS: DOCUSATE SODIUM 100 MG CAP PO SCH ×2 (09:16→20:13)
[2016-12-03] MEDS: OMEPRAZOLE 20 MG CAP PO SCH (09:16)
[2016-12-03] MEDS: HEPARIN SOD (PORCINE) 5000 UNITS/ML VIAL SQ SCH ×2 (09:16→20:13)
[2016-12-03] MEDS: MUPIROCIN 2% OINT 22 GM TUBE TOP SCH (09:17)
[2016-12-03] MEDS: GABAPENTIN 300 MG CAP PO SCH ×2 (09:17→20:13)
[2016-12-03] MEDS: CLOBETASOL PROP 0.05% OINT 30 GM TOP SCH (09:17)
[2016-12-03] MEDS: ESCITALOPRAM OXALATE 10 MG TAB (LEXAPRO) PO SCH (09:18)
[2016-12-03] MEDS: BICITRA 30ML SOLN UDC PO SCH (09:18)
[2016-12-03] MEDS: NYSTATIN 100,000 UNITS/GM TOPICAL PWD 15 GM TOP SCH ×3 (09:25→20:15)
[2016-12-03 19:52] VITALS: BP 105/50
[2016-12-03 22:00] VITALS: BP 132/66
[2016-12-04] MEDS: LevoFLOXacin 500 MG TABLET PO SCH (05:53)
[2016-12-04] MEDS: LEVOTHYROXINE 100MCG TABLET (0.1MG) PO SCH (05:53)
[2016-12-04] MEDS: ASPIRIN 81 MG ENTERIC TAB PO SCH (09:18)
[2016-12-04] MEDS: DOCUSATE SODIUM 100 MG CAP PO SCH (09:18)
[2016-12-04] MEDS: ATORVASTATIN 20 MG TAB PO SCH (09:18)
[2016-12-04] MEDS: ESCITALOPRAM OXALATE 10 MG TAB (LEXAPRO) PO SCH (09:18)
[2016-12-04] MEDS: BICITRA 30ML SOLN UDC PO SCH (09:18)
[2016-12-04] MEDS: IRON POLYSAC (NIFEREX) 150 MG CAP PO SCH (09:19)
[2016-12-04] MEDS: MONTELUKAST 10 MG TAB PO SCH (09:19)
[2016-12-04] MEDS: GABAPENTIN 300 MG CAP PO SCH (09:19)
[2016-12-04] MEDS: HEPARIN SOD (PORCINE) 5000 UNITS/ML VIAL SQ SCH (09:19)
[2016-12-04] MEDS: DOXYCYCLINE HYCLATE 100 MG TAB PO SCH (09:19)
[2016-12-04] MEDS: OMEPRAZOLE 20 MG CAP PO SCH (09:19)
[2016-12-04] MEDS: NYSTATIN 100,000 UNITS/GM TOPICAL PWD 15 GM TOP SCH (09:19)
[2016-12-04] MEDS: MUPIROCIN 2% OINT 22 GM TUBE TOP SCH (09:20)
[2016-12-04] MEDS: CLOBETASOL PROP 0.05% OINT 30 GM TOP SCH (09:20)
[2016-12-04] MEDS: ISOSORBIDE MON. (IMDUR) 30 MG XR TAB PO SCH (09:22)
[2016-12-04 09:23] VITALS: BP 114/56
[2016-12-04] MEDS: METOPROLOL TART 25 MG TABLET PO SCH (09:23)
[2016-12-04] MEDS: ADVAIR HFA 115/21MCG INHALER INH SCH (09:26)
[2016-12-04] MEDS: PERCOCET 5MG/325MG TAB PO PRN (09:29)
--- NOTE | 2016-12-04 22:11 | DSES ---
DATE OF ADMISSION: 11/08/2016 DATE OF DISCHARGE: 12/04/2016 (against medical advice) PRIMARY CARE PROVIDER: Dr. Durham in [place]. CONSULTANTS: Enamel Sprayer: Dr. Branch and Dr. Singh REVENUE STAMPER: Dr. Banks. PROCEDURES: None. COMPLICATIONS: None. DISCHARGE DIAGNOSIS: 1. Acute on chronic renal failure. 2. Chronic kidney disease stage III. 3. Right-sided abdominal cellulitis. 4. Troponin elevation in the setting of renal insufficiency. 5. Episode of hypotension. 6. Metabolic acidosis. 7. Macrocytic anemia. 8 History of urinary tract infection (UTI). 9. Leukocytosis. 10. History of hypertension. 11. Dyslipidemia. 12. History of pulmonary embolism. 13. Bilateral venous stasis ulcers. 14. Hypothyroidism. 15. Chronic obstructive pulmonary disease (COPD). 16. Peripheral neuropathy. 17. History of gallstones. 18. Depression. 19. Chronic back pain. 20. Reflux. 21. Elevated troponin with a history of coronary artery disease (CAD) possibly secondary to non-ST segment elevation myocardial infarction (NSTEMI). HOSPITALIZATION COURSE: The patient is a 66-year-old female who presented to [facility] on November 08, 2016. The patient was instructed by the primary care doctor to come to [facility] for further evaluation. The patient came from [facility] to [facility] on November 08, 2016. The patient was found to have urinary tract infection (UTI) with creatine of 2.9 and dietetic aide consulted and the patient acute on chronic renal failure. During admission, the patient was found to have elevated troponin and title attorney was consulted. The patient was started on antibiotics for her urinary tract infection. The patient was started on hydration and the patient's medications are being adjusted and her renal function continued to improve. Echocardiogram was performed and the patient was found to have severe pulmonary hypertension. Later, the patient started to show continued decrease of cardiac enzymes and the patient is being monitored on the telemetry. The patient's cardiac medication is being adjusted actively by the title attorney. During her hospitalization, the patient was found to have skin infection and the patient was started on antibiotics and antifungal medications. Wound care was also ordered for the patient's chronic venous ulcers. Physical therapy has been continued to work with the patient. The patient recovered rather slowly and the patient refused to work with physical therapy. Patient Family Services (PFS) has been consulted for customer service assistant for placement. On December 04, 2016, the patient signed out against medical advice (AMA). Before the patient leaves the hospital, the patient is highly recommended to follow with her primary care provider in one week and the patient should follow with a instrument repair specialist for her chronic venous stasis wound care. The patient is recommended to follow with nephrology and title attorney. OBJECTIVE: VITAL SIGNS: Temperature 97.4, pulse is 71, respiratory rate 16, blood pressure is 92/54, pulse oximetry is 95% on room air. LABORATORY DATA: White blood count (WBC) of 4.2, hemoglobin is 8.4, hematocrit is 26.9, platelet count is 153. Sodium is 140, potassium is 3.8, chloride is 106, CO2 is 26, BUN is 27, creatine is 1.27, glomerular filtration rate (GFR) is 44.7, fasting glucose is 123, calcium is 8.8. C-reactive protein is 3.14. MICROBIOLOGY: Blood culture from November 24, 2016 is negative after five days. Urine culture on November 09, 2016 is no growth. Urine culture from December 04, 2016 showed clinical significant for one organism. IMAGING STUDY: Renal ultrasound on November 09, 2016 showed bilateral renal atrophy, right greater than left with cortical echogenicity preserved. No hydronephrosis, hydroureter renal solid masses or stones events occurred. Portable abdominal KUB from November 09, 2016 showed no evidence of constipation. Abdominal ultrasound from November 24, 2016 showed significant subcutaneous edema. No discrete collections. DISCHARGE MEDICATIONS: - aspirin 81 mg by mouth daily - atorvastatin 40 mg by mouth daily - citric acid/sodium citrate 50 mL by mouth twice a day - Colace 100 mg by mouth twice a day - ferrous sulfate 325 mg twice a day - citalopram 20 mg by mouth daily - Synthroid 100 mcg by mouth daily - loratadine 10 mg by mouth daily - montelukast 10 mg by mouth daily - multivitamin one tab by mouth daily - nystatin powder topical three times a day - omeprazole 40 mg by mouth daily - ondansetron 4 mg by mouth twice a day as needed - Percocet 10/325 mg one tab by mouth every 6 hours as needed - Advair one puff inhalation twice a day. - gabapentin 300 mg by mouth twice a day DISCHARGE INSTRUCTIONS: The patient signed out against medical advice (AMA). The patient is highly recommended to follow with primary provider, dietetic aide, title attorney and instrument repair specialist within one to two weeks. Activity as tolerated. Renal diet as tolerated. DISCHARGE CONDITION: Guarded. Discharge time greater than 30 minutes.
[2016-12-06] MEDS ORDERED: ATOR40TA75 PO (14:10)
== END 2016-12-04 15:08 | disposition home health service (06) | DRG 683 ==
LOC: M ED 21:49 → M ED INP 23:47 → M PCU 11-09 00:54 → M MSPAV 11-13 21:54
PROVIDERS: ADMIT Internal Medicine; ATTEND General Practice
DX: N17.9 Acute kidney failure, unspecified (principal); N39.0 Urinary tract infection, site not specified; E87.2 Acidosis; L03.311 Cellulitis of abdominal wall; I87.2 Venous insufficiency (chronic) (peripheral); I13.10 Hypertensive heart and chronic kidney disease without heart failure, with stage 1 through stage 4 chronic kidney disease, or unspecified chronic kidney disease; G62.9 Polyneuropathy, unspecified; N18.3 Chronic kidney disease, stage 3 (moderate); E78.5 Hyperlipidemia, unspecified; D53.9 Nutritional anemia, unspecified; F32.9 Major depressive disorder, single episode, unspecified; M54.9 Dorsalgia, unspecified; I25.10 Atherosclerotic heart disease of native coronary artery without angina pectoris; E03.9 Hypothyroidism, unspecified; J44.9 Chronic obstructive pulmonary disease, unspecified; K21.9 Gastro-esophageal reflux disease without esophagitis; Z86.711 Personal history of pulmonary embolism; Z79.899 Other long term (current) drug therapy; Z88.0 Allergy status to penicillin; Z91.041 Radiographic dye allergy status; Z86.718 Personal history of other venous thrombosis and embolism

== ENCOUNTER 2017-11-28 16:00 | Emergency (ER) | payer MEDICARE, MEDICAID ==
[2017-11-28 18:52] LABS: BASO % 0.5 % (0.0-1.0); EOS # 0.2 10^3/uL (0.0-0.50); EOS % 2.9 % (0.0-3.0); HEMOGLOBIN 10.7 g/dl (12.0-15.5); IMMATURE GRANULOCYTE % 0.5 % (0-3.0); LYMPH # 1.9 10^3/uL (1.5-4.5); LYMPH % 30.5 % (24.0-44.0); MEAN CORPUSCULAR HEMOGLOBIN 30.5 pg (27.0-33.0); MEAN CORPUSCULAR HGB CONC 33.4 g/dl (32.0-36.5); MEAN CORPUSCULAR VOLUME 91.2 fl (80.0-96.0); MONO # 0.5 10^3/uL (0.0-0.8); MONO % 8.6 % (0.0-5.0); NEUTROPHILS # 3.5 10^3/uL (1.8-7.7); PLATELET COUNT, AUTOMATED 176 10^3/uL (150-450); RED BLOOD COUNT 3.51 10^6/uL (4.00-5.40); RED CELL DISTRIBUTION WIDTH 14.6 % (11.5-14.5); WHITE BLOOD COUNT 6.1 10^3/uL (4.0-10.0)
[2017-11-28 19:03] LABS: INR 4.17; PROTHROMBIN TIME 41.3 SECONDS (12.1-14.4)
[2017-11-28 19:12] LABS: ANION GAP 8 MEQ/L (8-16); BLOOD UREA NITROGEN 34 MG/DL (7-18); C REACTIVE PROTEIN QUANTITATIV 1.09 MG/DL (0.00-0.30); CALCIUM LEVEL 8.7 MG/DL (8.8-10.2); CARBON DIOXIDE LEVEL 28 MEQ/L (21-32); CHLORIDE LEVEL 101 MEQ/L (98-107); CREATININE FOR GFR 1.22 MG/DL (0.55-1.30); GLOMERULAR FILTRATION RATE 46.7 (>45); GLUCOSE, FASTING 67 MG/DL (70-100); POTASSIUM SERUM 4.3 MEQ/L (3.5-5.1); SODIUM LEVEL 137 MEQ/L (136-145)
[2017-11-28] MEDS: ACETAMINOPHEN TAB 650MG DOSE (2X325MG) PO (20:12)
== END 2017-11-28 21:20 | disposition home or self-care (01) ==
LOC: M ED 16:00
DX: R60.0 Localized edema (principal); I73.9 Peripheral vascular disease, unspecified; Z79.899 Other long term (current) drug therapy; Z91.041 Radiographic dye allergy status; Z91.89 Other specified personal risk factors, not elsewhere classified; Z88.0 Allergy status to penicillin
CPT/HCPCS: 93970

== ENCOUNTER → 2017-12-04 | Outpatient (CLI) | payer MEDICARE, MEDICAID ==
[~2017-12-04] MED LIST: HEPARIN 1,000 UNITS/ML 10ML VIAL (FOR RADIOLOGY& DIALYSIS ONLY) As Ordered; ISOVUE-300 61% 50ML VIAL (Q9967) As Ordered; MIDAZOLAM INJ 2 MG/2 ML VIAL (J2250) As Ordered; fentaNYL 100 MCG/2 ML INJECTION (J3010) As Ordered
[2017-12-04 06:54] LABS: HEMATOCRIT 30.2 % (36.0-47.0); HEMOGLOBIN 10.2 g/dl (12.0-15.5); MEAN CORPUSCULAR HEMOGLOBIN 30.8 pg (27.0-33.0); MEAN CORPUSCULAR HGB CONC 33.8 g/dl (32.0-36.5); MEAN CORPUSCULAR VOLUME 91.2 fl (80.0-96.0); PLATELET COUNT, AUTOMATED 169 10^3/uL (150-450); RED BLOOD COUNT 3.31 10^6/uL (4.00-5.40); RED CELL DISTRIBUTION WIDTH 15.1 % (11.5-14.5); WHITE BLOOD COUNT 2.9 10^3/uL (4.0-10.0)
[2017-12-04 07:04] LABS: INR 3.74; PROTHROMBIN TIME 37.9 SECONDS (12.1-14.4)
[2017-12-04 07:10] LABS: ALBUMIN 2.2 GM/DL (3.2-5.2); ALKALINE PHOSPHATASE 222 U/L (45-117); ALT/SGPT 20 U/L (12-78); ANION GAP 8 MEQ/L (8-16); AST/SGOT 25 U/L (7-37); BILIRUBIN,TOTAL 0.6 MG/DL (0.2-1.0); BLOOD UREA NITROGEN 30 MG/DL (7-18); CALCIUM LEVEL 8.8 MG/DL (8.8-10.2); CARBON DIOXIDE LEVEL 28 MEQ/L (21-32); CHLORIDE LEVEL 102 MEQ/L (98-107); GLOMERULAR FILTRATION RATE 43.4 (>45); GLUCOSE, FASTING 132 MG/DL (70-100); POTASSIUM SERUM 4.2 MEQ/L (3.5-5.1); SODIUM LEVEL 138 MEQ/L (136-145); TOTAL PROTEIN 6.6 GM/DL (6.4-8.2)
== END ==
LOC: M IRPRO 06:19
DX: I70.262 Atherosclerosis of native arteries of extremities with gangrene, left leg (principal)
CPT/HCPCS: 80053